=== PATIENT | male | born 1965 | race Caucasian/White ===

== ENCOUNTER 2016-08-23 16:23 | Emergency (ER) | payer OTHER ==
[2016-08-23 17:14] VITALS: BP 123/64; PULSE 100; RESP 20; TEMP 97.1
[2016-08-23] MEDS ORDERED: IPRATROPIUM-ALBUTEROL 3 ML NEB INHALATION STA (18:12)
[2016-08-23] MEDS ORDERED: IBUPROFEN 600 MG TAB PO STA (18:12)
--- NOTE | 2016-08-23 18:15 | ED ---
SOB HPI - General Chief Complaint: Shortness of Breath Stated Complaint: Difficulty Breathing Time Seen by Provider: 08/23/16 17:59 Source: patient, RN notes reviewed Mode of arrival: ambulatory Limitations: no limitations - History of Present Illness Initial Comments: 51 yo male presents to the emergency department with a chief complaint of shortness of breath. Patient states he just felt very rundown and sick lately. Patient states that he has a runny nose and mild cough. Patient states he felt was bronchitis but just does not seem be getting better. Patient states that activity seems to make it worse. Patient states he hasn't had any fever or chills. Patient states that he hasn't had any nausea vomiting. Patient has history of a liver transplant back in October. Patient states he was concerned due to the continued symptoms like.Patient denies any recent fever, chills, chest pain, back pain, abdominal pain, nausea vomiting, numbness or tingling, dysuria or hematuria, constipation or diarrhea, headaches or visual changes, or any other current symptoms. - Related Data Home Medications Medication Instructions Recorded Confirmed Acetaminophen Tab [Tylenol Tab] 325 - 650 mg PO Q6H PRN 08/23/16 08/23/16 Ledipasvir/Sofosbuvir [Harvoni 1 tab PO DAILY 08/23/16 08/23/16 90-400 mg Tablet] Magnesium Oxide [Mag-Ox] 800 mg PO BID 08/23/16 08/23/16 Mycophenolate Mofetil [Cellcept] 500 mg PO Q12H 08/23/16 08/23/16 Ribavirin 400 mg PO BID 08/23/16 08/23/16 Tacrolimus [Prograf] 3 mg PO Q12H 08/23/16 08/23/16 predniSONE 10 mg PO DAILY 08/23/16 08/23/16 Allergies Allergy/AdvReac Type Severity Reaction Status Date / Time No Known Allergies Allergy Verified 08/23/16 17:39 Review of Systems ROS Statement: Those systems with pertinent positive or pertinent negative responses have been documented in the HPI. ROS Other: All systems not noted in ROS Statement are negative. Past Medical History Past Medical History: GI Bleed, Liver Disease Additional Past Medical History / Comment(s): Hepatitis C, cirrhosis, appendicitis, anemia alcoholic cirrhosis/ refractory ASCITIES, past c-diff 1-7- 15, ABD HERNIA, PVD, varices, recurrent Right pleural effusion. THORACENTESIS 04/22 History of Any Multi-Drug Resistant Organisms: C-DIFF Date of last positivie culture/infection: 07/15/2014 MDRO Source:: previous admission Past Surgical History: Appendectomy Additional Past Surgical History / Comment(s): multiple paracentesis, variceal banding, EGDAdditional Medical Hx: Hepatitis C; Cirrhosis, multiple thoracentesis,TIPS procedure liver transplant, lung surgery Past Anesthesia/Blood Transfusion Reactions: No Reported Reaction Past Psychological History: No Psychological Hx Reported Additional Psychological History / Comment(s): PT STATED HE LIVES WITH A FRIEND , IS 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 NO OUTSIDE SERVICES OTHER THAN MEDICAID CARD AND FOOD STAMPS. Smoking Status: Current every day smoker Past Alcohol Use History: None Reported, Occasional Additional Past Alcohol Use History / Comment(s): states he drink 2 (6) packs of beer a wk Past Drug Use History: Cocaine, Heroin, Marijuana Additional Drug Use History / Comment(s): pt stated past heroine, cocaine and marijuana use. NONE RECENT - Past Family History Mother Family Medical History: CVA/TIA, Myocardial Infarction ([place]) Additional Family Medical History / Comment(s): currently alive and 90 years old Father Family Medical History: No Reported History Additional Family Medical History / Comment(s): from car accident General Exam - General Exam Comments Initial Comments: General: The patient is awake and alert, in no distress, and does not appear acutely ill. Eye: Pupils are equal, round and reactive to light, extra-ocular movements are intact; there is normal conjunctiva bilaterally. No signs of icterus. Ears, nose, mouth and throat: There are moist mucous membranes and no oral lesions. Neck: The neck is supple, there is no tenderness. Cardiovascular: There is a regular rate and rhythm. No murmur, rub or gallop is appreciated. Respiratory: Lungs are clear to auscultation, respirations are non-labored, breath sounds are equal. No wheezes, stridor, rales, or rhonchi. Gastrointestinal: Soft, non-distended, non-tender abdomen without masses or organomegaly noted. There is no rebound or guarding present. No CVA tenderness. Bowel sounds are unremarkable. Back: There is no tenderness to palpation in the midline. There is no obvious deformity. No rashes noted. Musculoskeletal: Normal ROM, no tenderness, There is no pedal edema. There is no calf tenderness or swelling. Sensation intact. Pulses equal bilaterally 2+. Neurological: CN II-XII intact, There are no obvious motor or sensory deficits. Coordination appears grossly intact. Speech is normal. Skin: Skin is warm and dry and no rashes or lesions are noted. Psychiatric: Cooperative, appropriate mood & affect, normal judgment. Limitations: no limitations Course Vital Signs 08/23/16 17:12 Temperature 97.1 F L Pulse Rate 100 Respiratory 20 Rate Blood Pressure 123/64 O2 Sat by Pulse 100 Oximetry Medical Decision Making - Medical Decision Making 50-year-old male presents emergency department chief complaint of shortness of breath and upper respiratory type symptoms. Patient eloped from the department patient did not undergo any workup. We're unable to discussed risks with the patient since he was just not in the room when going to be worked up by the nurse. Disposition Clinical Impression: Shortness of breath Disposition: Left Against Medical Advice Condition: Undetermined Referrals: Kentrell Maldonado MD [Primary Care Provider] - 1-2 days
== END 2016-08-23 18:43 | disposition left against medical advice (07) ==
LOC: EC 16:23
DX: R06.02 Shortness of breath (principal); B19.20 Unspecified viral hepatitis C without hepatic coma; Z94.4 Liver transplant status; Z79.899 Other long term (current) drug therapy; F17.200 Nicotine dependence, unspecified, uncomplicated

== ENCOUNTER 2016-08-30 11:28 | Observation (INO) | payer OTHER ==
--- NOTE | 2016-08-30 12:08 | ED ---
Recheck HPI - General Chief Complaint: Recheck/Abnormal Lab/Rx Stated Complaint: OZZIE, HEMOGLOBIN DOWN, ABNORMAL LABS, BAD LIVER Time Seen by Provider: 08/30/16 11:50 Source: patient, RN notes reviewed Mode of arrival: wheelchair Limitations: no limitations - History of Present Illness Initial Comments: This is a 51-year-old male who was the liver transplant in October of this past year who presents with complaints of dyspnea on exertion and anemia. He's been having his blood drawn to follow his hemoglobin level it went from 9.6-8.6 none 7.6 and last week or so. He complains of shortness of breath and exertional dyspnea. 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 He has no other complaints at this time he states his liver has been functioning properly. He denies any tarry stools or bleeding from above or below as far as his GI tract. He voices no other complaints MD Complaint: abnormal lab - Related Data Home Medications Medication Instructions Recorded Confirmed Ledipasvir/Sofosbuvir [Harvoni 1 tab PO DAILY 08/23/16 08/30/16 90-400 mg Tablet] Magnesium Oxide [Mag-Ox] 800 mg PO BID 08/23/16 08/30/16 Mycophenolate Mofetil [Cellcept] 500 mg PO Q12H 08/23/16 08/30/16 Tacrolimus [Prograf] 3 mg PO QAM 08/23/16 08/30/16 predniSONE 10 mg PO DAILY 08/23/16 08/30/16 Omeprazole 20 mg PO DAILY 08/30/16 08/30/16 Tacrolimus [Prograf] 2 mg PO HS 08/30/16 08/30/16 valGANciclovir [Valcyte] 900 mg PO BID 08/30/16 08/30/16 Allergies Allergy/AdvReac Type Severity Reaction Status Date / Time No Known Allergies Allergy Verified 08/23/16 17:39 Review of Systems ROS Statement: Those systems with pertinent positive or pertinent negative responses have been documented in the HPI. ROS Other: All systems not noted in ROS Statement are negative. Past Medical History Past Medical History: GI Bleed, Liver Disease Additional Past Medical History / Comment(s): Hepatitis C, cirrhosis, appendicitis, anemia alcoholic cirrhosis/ refractory ASCITIES, past c-diff 1-- 15, ABD HERNIA, PVD, varices, recurrent Right pleural effusion. THORACENTESIS 04/22 History of Any Multi-Drug Resistant Organisms: C-DIFF Date of last positivie culture/infection: 07/15/2014 MDRO Source:: previous admission Past Surgical History: Appendectomy Additional Past Surgical History / Comment(s): multiple paracentesis, variceal banding, EGDAdditional Medical Hx: Hepatitis C; Cirrhosis, multiple thoracentesis,TIPS procedure liver transplant, lung surgery Past Anesthesia/Blood Transfusion Reactions: No Reported Reaction Past Psychological History: No Psychological Hx Reported Additional Psychological History / Comment(s): PT STATED HE LIVES WITH A FRIEND , IS 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 NO OUTSIDE SERVICES OTHER THAN MEDICAID CARD AND FOOD STAMPS. Smoking Status: Current every day smoker Past Alcohol Use History: None Reported, Occasional Additional Past Alcohol Use History / Comment(s): states he drink 2 (6) packs of beer a wk Past Drug Use History: Cocaine, Heroin, Marijuana Additional Drug Use History / Comment(s): pt stated past heroine, cocaine and marijuana use. NONE RECENT - Past Family History Mother Family Medical History: CVA/TIA, Myocardial Infarction ([place]) Additional Family Medical History / Comment(s): currently alive and 90 years old Father Family Medical History: No Reported History Additional Family Medical History / Comment(s): from car accident General Exam - General Exam Comments Initial Comments: This is a well-developed well-nourished awake alert oriented 3 male. He does appear pale. Limitations: no limitations General appearance: alert, in no apparent distress Head exam: Present: atraumatic, normocephalic, normal inspection Eye exam: Present: PERRL, EOMI, other (Pale conjunctiva) ENT exam: Present: normal exam, mucous membranes moist Neck exam: Present: normal inspection. Absent: tenderness, meningismus, lymphadenopathy Respiratory exam: Present: decreased breath sounds Cardiovascular Exam: Present: normal rhythm, tachycardia GI/Abdominal exam: Present: soft (Well-healed rooftop incision), normal bowel sounds. Absent: distended, tenderness, guarding, rebound, rigid Rectal exam: Present: deferred Extremities exam: Present: normal inspection, full ROM, normal capillary refill. Absent: tenderness, pedal edema, joint swelling, calf tenderness Back exam: Present: normal inspection Neurological exam: Present: alert, oriented X3, CN II-XII intact Psychiatric exam: Present: normal affect, normal mood Skin exam: Present: warm, dry, intact, pallor Course Vital Signs 08/30/16 08/30/16 08/30/16 11:41 12:59 13:29 Temperature 98.5 F Pulse Rate 102 H 82 94 Respiratory 18 Rate Blood Pressure 125/62 138/72 138/71 O2 Sat by Pulse 100 100 100 Oximetry 08/30/16 08/30/16 08/30/16 13:59 14:29 14:58 Temperature Pulse Rate 92 80 78 Respiratory Rate Blood Pressure 139/77 139/59 135/82 O2 Sat by Pulse 99 99 100 Oximetry 08/30/16 08/30/16 15:10 15:20 Temperature 98.2 F 98.4 F Pulse Rate 85 103 H Respiratory 18 18 Rate Blood Pressure 123/58 116/59 O2 Sat by Pulse 100 100 Oximetry Medical Decision Making - Medical Decision Making Patient will be admitted for the transfusion. He has no physician in the area at this time believe admitted to the on-call medicine physician. - Lab Data Result diagrams: 08/30/16 12:25 08/30/16 12:25 Lab Results 08/30/16 08/30/16 08/30/16 Range/Units 12:25 12:25 12:25 WBC (3.8-10.6) k/uL RBC (4.30-5.90) m/uL Hgb (13.0-17.5) gm/dL Hct (39.0-53.0) % MCV (80.0-100.0) fL MCH (25.0-35.0) pg MCHC (31.0-37.0) g/dL RDW (11.5-15.5) % Plt Count (150-450) k/uL Neutrophils % % Lymphocytes % % Monocytes % % Eosinophils % % Basophils % % Neutrophils # (1.3-7.7) k/uL Lymphocytes # (1.0-4.8) k/uL Monocytes # (0-1.0) k/uL Eosinophils # (0-0.7) k/uL Basophils # (0-0.2) k/uL Toxic Granulation Polychromasia Poikilocytosis Poikilocytosis (manual Anisocytosis Macrocytosis Ovalocytes Sodium (137-145) mmol/L Potassium (3.5-5.1) mmol/L Chloride (98-107) mmol/L Carbon Dioxide (22-30) mmol/L Anion Gap mmol/L BUN (9-20) mg/dL Creatinine (0.66-1.25) mg/dL Est GFR (MDRD) Af Amer (>60 ml/min/1.73 sqM) Est GFR (MDRD) Non-Af (>60 ml/min/1.73 sqM) Glucose (74-99) mg/dL Calcium (8.4-10.2) mg/dL Magnesium (1.6-2.3) mg/dL Total Bilirubin (0.2-1.3) mg/dL AST (17-59) U/L ALT (21-72) U/L Alkaline Phosphatase (38-126) U/L Total Creatine Kinase 21 L (55-170) U/L CK-MB (CK-2) 0.4 (0.0-2.4) ng/mL CK-MB (CK-2) Rel Index 1.9 Troponin I <0.012 (0.000-0.034) ng/mL NT-Pro-B Natriuret Pep 443 pg/mL Total Protein (6.3-8.2) g/dL Albumin (3.5-5.0) g/dL Blood Type A Positive Blood Type Recheck No Antibody Screen NEGATIVE Crossmatch See Detail Spec Expiration Date 09/02/2016232408/30/16 08/30/16 Range/Units 12:25 12:25 WBC 1.7 L* (3.8-10.6) k/uL RBC 2.38 L (4.30-5.90) m/uL Hgb 7.4 L (13.0-17.5) gm/dL Hct 22.4 L (39.0-53.0) % MCV 94.2 (80.0-100.0) fL MCH 31.3 (25.0-35.0) pg MCHC 33.2 (31.0-37.0) g/dL RDW 23.1 H (11.5-15.5) % Plt Count 164 (150-450) k/uL Neutrophils % 73 % Lymphocytes % 12 % Monocytes % 9 % Eosinophils % 2 % Basophils % 1 % Neutrophils # 1.3 (1.3-7.7) k/uL Lymphocytes # 0.2 L (1.0-4.8) k/uL Monocytes # 0.2 (0-1.0) k/uL Eosinophils # 0.0 (0-0.7) k/uL Basophils # 0.0 (0-0.2) k/uL Toxic Granulation Present Polychromasia Present Poikilocytosis Slight Poikilocytosis (manual Present Anisocytosis Moderate Macrocytosis Slight Ovalocytes Present Sodium 141 (137-145) mmol/L Potassium 4.2 (3.5-5.1) mmol/L Chloride 106 (98-107) mmol/L Carbon Dioxide 24 (22-30) mmol/L Anion Gap 11 mmol/L BUN 16 (9-20) mg/dL Creatinine 0.97 (0.66-1.25) mg/dL Est GFR (MDRD) Af Amer >60 (>60 ml/min/1.73 sqM) Est GFR (MDRD) Non-Af >60 (>60 ml/min/1.73 sqM) Glucose 105 H (74-99) mg/dL Calcium 9.1 (8.4-10.2) mg/dL Magnesium 1.9 (1.6-2.3) mg/dL Total Bilirubin 0.8 (0.2-1.3) mg/dL AST 20 (17-59) U/L ALT 26 (21-72) U/L Alkaline Phosphatase 44 (38-126) U/L Total Creatine Kinase (55-170) U/L CK-MB (CK-2) (0.0-2.4) ng/mL CK-MB (CK-2) Rel Index Troponin I (0.000-0.034) ng/mL NT-Pro-B Natriuret Pep pg/mL Total Protein 7.0 (6.3-8.2) g/dL Albumin 4.0 (3.5-5.0) g/dL Blood Type Blood Type Recheck Antibody Screen Crossmatch Spec Expiration Date - EKG Data -: EKG Interpreted by Me EKG shows normal: sinus rhythm, axis, intervals, QRS complexes, ST-T waves (EKG shows a normal sinus rhythm of 85 appear of 01 20 QRS amish a 96 daily since QTC of 388/461 st-t wave changes.) Rate: normal Disposition Clinical Impression: Anemia, History of liver transplant, Symptomatic anemia Disposition: ADMITTED IP TO THIS HOSP Condition: Stable
--- NOTE | 2016-08-30 12:58 | XR ---
EXAMINATION TYPE: XR chest 2V DATE OF EXAM: 08/30/2016 12:53 PM HISTORY: cough. REFERENCE: Previous study dated 07/08/2016. FINDINGS: The lungs are clear. There is a chronic right pleural reaction. Heart size is normal. IMPRESSION: CHRONIC RIGHT PLEURAL REACTION MAY REPRESENT SOME PLEURAL THICKENING OR SMALL AMOUNT OF PLEURAL FLUID .
[2016-08-30 13:05] LABS: Anisocytosis Moderate; Basophils % (A) 1 %; CH 31.8; Eosinophils % (A) 2 %; HCT 22.4 % (39.0-53.0); HDW 3.71; HGB 7.4 gm/dL (13.0-17.5); Luc # (Auto) 0.06; Luc % (Auto) 3; Lymphocytes # (A) 0.2 k/uL (1.0-4.8); Lymphocytes % (A) 12 %; MCH 31.3 pg (25.0-35.0); MCHC 33.2 g/dL (31.0-37.0); MCV 94.2 fL (80.0-100.0); Macrocytosis Slight; Mean Platelet Volume 9.2; Monocytes # (A) 0.2 k/uL (0-1.0); Monocytes % (A) 9 %; Neutrophils # (A) 1.3 k/uL (1.3-7.7); Neutrophils % (A) 73 %; Poikilocytosis Slight; RBC 2.38 m/uL (4.30-5.90); RDW 23.1 % (11.5-15.5); WBC (Perox) 1.79
[2016-08-30 13:08] LABS: WBC 1.7 k/uL (3.8-10.6)
[2016-08-30 13:27] LABS: ALT 26 U/L (21-72); AST 20 U/L (17-59); Alkaline Phosphatase 44 U/L (38-126); Anion Gap 11 mmol/L; Blood Urea Nitrogen 16 mg/dL (9-20); Calcium 9.1 mg/dL (8.4-10.2); Carbon Dioxide 24 mmol/L (22-30); Chloride 106 mmol/L (98-107); Glucose 105 mg/dL (74-99); Magnesium 1.9 mg/dL (1.6-2.3); Non-African American GFR(MDRD) >60 (>60 ml/min/1.73 sqM); Potassium 4.2 mmol/L (3.5-5.1); Sodium 141 mmol/L (137-145); Total Bilirubin 0.8 mg/dL (0.2-1.3)
[2016-08-30 13:41] LABS: Creatine Kinase 21 U/L (55-170)
[2016-08-30 13:55] LABS: Creatine Kinase MB 0.4 ng/mL (0.0-2.4); Troponin I <0.012 ng/mL (0.000-0.034)
[2016-08-30 13:56] LABS: Ovalocytes Present
[2016-08-30 13:57] LABS: Polychromasia Present; Toxic Granulation Present
[2016-08-30] MEDS ORDERED: NALOXONE 0.4 MG/ML 1 ML VIAL IV PRN (15:33)
[2016-08-30] MEDS ORDERED: SODIUM CHLORIDE 0.9% 1,000 ML IV SCH (15:45)
[2016-08-30 20:39] VITALS: BMI 21.6
[2016-08-30] MEDS: MYCOPHENOLATE MOFETIL 500 MG TAB PO SCH (20:54)
[2016-08-30] MEDS: MAGNESIUM OXIDE 400 MG TAB PO SCH (20:54)
[2016-08-30] MEDS ORDERED: TACROLIMUS 1 MG CAP PO SCH (21:00)
[2016-08-30] MEDS ORDERED: NICOTINE POLACRILEX 2 MG GUM BUCCAL PRN (21:54)
[2016-08-31 07:39] VITALS: BP 111/63; PULSE 67; RESP 18; TEMP 98.2
[2016-08-31] MEDS: MAGNESIUM OXIDE 400 MG TAB PO SCH (08:24)
[2016-08-31] MEDS: MYCOPHENOLATE MOFETIL 500 MG TAB PO SCH (08:25)
[2016-08-31] MEDS ORDERED: TACROLIMUS 1 MG CAP PO SCH (09:00)
[2016-08-31] MEDS ORDERED: SOFOSBUVIR PO SCH (09:00)
[2016-08-31] MEDS ORDERED: LEDIPASVIR PO SCH (09:00)
[2016-08-31] MEDS ORDERED: predniSONE 10 MG TAB PO SCH (09:00)
[2016-08-31] MEDS ORDERED: PANTOPRAZOLE 40 MG TABLET PO SCH (09:00)
[2016-08-31 11:50] LABS: Anisocytosis Moderate; Basophils % (A) 0 %; CH 30.6; Eosinophils % (A) 1 %; HCT 29.2 % (39.0-53.0); HDW 3.89; Luc # (Auto) 0.06; Luc % (Auto) 2; Lymphocytes # (A) 0.3 k/uL (1.0-4.8); Lymphocytes % (A) 8 %; MCH 30.2 pg (25.0-35.0); MCHC 33.1 g/dL (31.0-37.0); Macrocytosis Slight; Mean Platelet Volume 9.2; Monocytes # (A) 0.1 k/uL (0-1.0); Monocytes % (A) 3 %; Neutrophils # (A) 2.8 k/uL (1.3-7.7); Neutrophils % (A) 86 %; Poikilocytosis Slight; RDW 21.9 % (11.5-15.5); WBC 3.3 k/uL (3.8-10.6); WBC (Perox) 3.55
[2016-08-31 11:53] LABS: HGB 9.7 gm/dL (13.0-17.5)
--- NOTE | 2016-08-31 12:58 | HP ---
DATE OF ADMISSION: 08/30/2016 PRESENTING COMPLAINT: Weak, tired. HISTORY OF PRESENTING COMPLAINT: This is a 51-year-old patient who used to follow with Dr. Maldonado before, but does not follow with any family doctor anymore. Patient does follow with Dr. Barillas ) a liver transplant specialist out of [facility] from where he communicates to a nurse coordinator. The patient did have hepatitis C, cirrhosis and did have a liver transplant on October 31, 2015. Patient also getting treatment Harvoni for his hepatitis C. He has got a few pills left. Also, got accompanying medication ribavirin, stopped taking it because it was affecting probably his counts. Patient presented feeling weak, tired, rundown. He was found to have a hemoglobin of 7.4; hence, patient being transfused blood for symptomatic anemia. As I interviewed the patient, he is very keen to leave and not stay in the hospital anymore even to the point of AMA. He says he is feeling fine after the blood transfusion. REVIEW OF SYSTEMS: CONSTITUTIONAL: Weak, tired. HEENT: None. RESPIRATORY: Some wheezing and coughing. CARDIOVASCULAR: None. GASTROINTESTINAL: None. GENITOURINARY: None. MUSCULOSKELETAL: None. DERMATOLOGICAL: Scars. HEMATOLOGICAL: None. LYMPHATIC: None. PSYCHIATRY: None. NEUROLOGICAL: None. Past history of GI bleed, hepatitis C, cirrhosis, appendicitis, ascites, abdominal hernia, varices, recurrent right pleural effusion. PAST SURGICAL HISTORY: Appendectomy, multiple paracenteses, variceal banding, hep C, cirrhosis, multiple thoracenteses, TIPS procedure, liver transplant. SOCIAL HISTORY: The patient lives with a friend. 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 Smokes at least 1/2 pack a day. Denies alcohol for some time. Patient did in the past heroin, cocaine and marijuana, none recently. Family history of stroke and heart attack. HOME MEDICATIONS: 1. Harvoni 90/400 one tablet p.o. q.h.s. 2. Magnesium oxide 800 mg p.o. b.i.d. 3. Prograf 2 mg q.h.s. 4. Prograf 3 mg p.o. in the morning. 5. CellCept 500 mg p.o. q.12. 6. Prednisone 10 mg p.o. daily. ALLERGIES: None. ON EXAMINATION: VITAL SIGNS ON PRESENTATION: Temperature 98.5, pulse 102, respiration 18, blood pressure 125/62, pulse ox 100% on room air. GENERAL APPEARANCE: Average built, sitting up, not in distress. EYES: Pupils equal. Conjunctivae pale. HENT: Oral cavity normal. NECK: JVD not raised. Mass not palpable. RESPIRATORY: Effort normal. LUNGS: Decreased breath sounds. Mild wheezing. CARDIOVASCULAR: First and second sounds normal. No edema. ABDOMEN: Scars are present. No tenderness. Liver and spleen not palpable. LYMPHATIC: No lymph node palpable in neck or axillae. PSYCHIATRY: Alert and oriented x3. Mood and affect slightly anxious appearing. NEUROLOGICAL: Pupils equal. Cranial nerves grossly intact. Power and sensation grossly intact. INVESTIGATIONS: White count 1.7, hemoglobin 7.4, platelets 164. Potassium 4.2. ASSESSMENT: 1. Acute symptomatic anemia, could be from a side effect of drugs. 2. Leukopenia, could be side effect of drugs. 3. Status post liver transplant on October for hepatitis C and cirrhosis. 4. Chronic nicotine dependence. Patient is a smoker. 5. Chronic obstructive pulmonary disease in a smoker. PLAN: Patient was transfused blood. Patient counseled against smoking. Will be given a nicotine patch and also will be prescribed Spiriva. Patient told to establish with a family doctor and patient has a scheduled blood draw for Vargas Zhang done tomorrow.
--- NOTE | 2016-09-01 16:09 | DS ---
DATE OF ADMISSION: 08/30/2016 DATE OF DISCHARGE: 08/31/2016 FINAL DIAGNOSES: 1. Acute symptomatic anemia; could be hemolysis from drugs. 2. Leukopenia; side effect of drugs. 3. History of liver transplant on October 31, 2015, for hepatitis C and cirrhosis. 4. Chronic nicotine dependence. Patient is a smoker. 5. Chronic obstructive pulmonary disease in a smoker. HOSPITAL COURSE: This patient with liver transplant at [facility], being followed by Dr. Chairez, presented with symptomatic anemia at 7.4. He was given 2 units of blood. Hemoglobin has come up to 9.7. Patient was counseled against smoking. He does not follow with a local doctor. Repeat hemoglobin is good, and patient is overall feeling much better. DISCHARGE MEDICATIONS: 1. Harvoni 90/400 one tablet p.o. at bedtime. 2. Magnesium oxide 800 mg p.o. b.i.d. 3. CellCept 500 mg p.o. q.12. 4. Prograf 3 mg p.o. daily. 5. Prednisone 10 mg daily. 6. Prograf 2 mg p.o. at bedtime. 7. Nicotine patch daily. 8. Spiriva 1 capsule daily. Patient to follow up with Dr. Chairez at [facility] today. Patient to establish and follow with a family doctor in the next 2 days. On exam, lungs have decreased breath sounds. Abdomen is soft, non-tender. ABDOMEN: Soft, nontender
== END 2016-08-31 11:50 | disposition home or self-care (01) ==
LOC: EC 11:28 → 3OBS 15:34
PROVIDERS: ADMIT Hospitalist; ATTEND Hospitalist
DX: D64.9 Anemia, unspecified (principal); D70.8 Other neutropenia; T50.905A Adverse effect of unspecified drugs, medicaments and biological substances, initial encounter; B19.20 Unspecified viral hepatitis C without hepatic coma; Z94.4 Liver transplant status; J44.9 Chronic obstructive pulmonary disease, unspecified; I73.9 Peripheral vascular disease, unspecified; Z79.52 Long term (current) use of systemic steroids; Z79.899 Other long term (current) drug therapy
CPT/HCPCS: 36415; 93005; 86900; 86901; 83880; 80053; 82550; 82553; 83735; 84484; 85025 ×2; 86850; 86920; 71020; 99285; G0378 ×2; P9016; J7507 ×2; J7517 ×2; J7512; 36430

== ENCOUNTER → 2016-10-27 | Outpatient (CLI) | payer OTHER ==
[2016-10-27 10:56] LABS: Hepatitis B Surface Ag Index 0.08
[2016-10-27 11:15] LABS: Hepatitis B Surface Antibody Negative (Negative)
[2016-10-30 15:40] LABS: Hepatitis B Virus DNA Not detected (Not detected); Hepatitis B Virus DNA, Quant <10 IU/mL (<10); Log HBV IU/mL <1.00 (<1.00)
== END | disposition home or self-care (01) ==
LOC: LABWHC1 08:25
PROVIDERS: ATTEND Internal Medicine Gastroenterology
DX: Z48.23 Encounter for aftercare following liver transplant (principal)
CPT/HCPCS: 36415; 86706; 87340; 87517

== ENCOUNTER 2018-05-20 13:33 | Observation (INO) | payer OTHER ==
[2018-05-20] MEDS ORDERED: SODIUM CHLORIDE 0.9% 1,000 ML IV STA (14:49)
[2018-05-20] MEDS ORDERED: IPRATROPIUM-ALBUTEROL 3 ML NEB INHALATION STA ×2 (14:49→16:53)
--- NOTE | 2018-05-20 14:53 | ED ---
SOB HPI - General Chief Complaint: Shortness of Breath Stated Complaint: Blurred vision, SOB Time Seen by Provider: 05/20/18 14:30 Source: patient, RN notes reviewed Mode of arrival: ambulatory Limitations: no limitations - History of Present Illness Initial Comments: This is a 53-year-old male with a history of a liver transplant in October 2015 hernández is a long-time smoker down from 2 packs a day to 7 cigarettes a day who presents with complaints of 2 days of shortness of breath cough he's had yellow phlegm some fevers and chills with it. No overt chest pain no nausea vomiting diarrhea. He states he feels similar when he sneezed a blood transfusion the past. He has no other modifying factors at this time he states she's never been diagnosed with COPD or emphysema. MD Complaint: shortness of breath, cough - Related Data Home Medications Medication Instructions Recorded Confirmed Magnesium Oxide [Mag-Ox] 800 mg PO BID 08/23/16 05/20/18 Mycophenolate Mofetil [Cellcept] 500 mg PO Q12H 08/23/16 05/20/18 Tacrolimus [Prograf] 2 mg PO BID 08/30/16 05/20/18 oxyCODONE-APAP 10-325MG [Percocet 1 tab PO Q8HR 05/20/18 05/20/18 10-325 mg] Allergies Allergy/AdvReac Type Severity Reaction Status Date / Time No Known Allergies Allergy Verified 05/20/18 14:52 Review of Systems ROS Statement: Those systems with pertinent positive or pertinent negative responses have been documented in the HPI. ROS Other: All systems not noted in ROS Statement are negative. Past Medical History Past Medical History: GI Bleed, Liver Disease Additional Past Medical History / Comment(s): Hepatitis C, cirrhosis, appendicitis, anemia alcoholic cirrhosis/ refractory ASCITIES, past c-diff 1-- 15, ABD HERNIA, PVD, varices, recurrent Right pleural effusion. THORACENTESIS 04/22 History of Any Multi-Drug Resistant Organisms: C-DIFF Date of last positivie culture/infection: 07/15/2014 MDRO Source:: previous admission Past Surgical History: Appendectomy Additional Past Surgical History / Comment(s): multiple paracentesis, variceal banding, EGDAdditional Medical Hx: Hepatitis C; Cirrhosis, multiple thoracentesis,TIPS procedure liver transplant, lung surgery Past Anesthesia/Blood Transfusion Reactions: No Reported Reaction Past Psychological History: No Psychological Hx Reported Smoking Status: Current every day smoker Past Alcohol Use History: None Reported, Occasional Past Drug Use History: Cocaine, Heroin, Marijuana - Past Family History Mother Family Medical History: CVA/TIA, Myocardial Infarction ([place]) Additional Family Medical History / Comment(s): currently alive and 90 years old Father Family Medical History: No Reported History Additional Family Medical History / Comment(s): from car accident General Exam - General Exam Comments Initial Comments: This is a well-developed well-nourished awake alert oriented 3 male Limitations: no limitations General appearance: alert, in no apparent distress Head exam: Present: atraumatic, normocephalic, normal inspection Eye exam: Present: normal appearance, PERRL, EOMI. Absent: scleral icterus, conjunctival injection, periorbital swelling ENT exam: Present: normal exam, mucous membranes moist Neck exam: Present: normal inspection. Absent: tenderness, meningismus, lymphadenopathy Respiratory exam: Present: wheezes, rhonchi, decreased breath sounds. Absent: respiratory distress, rales, stridor Cardiovascular Exam: Present: regular rate, normal rhythm, normal heart sounds. Absent: systolic murmur, diastolic murmur, rubs, gallop, clicks GI/Abdominal exam: Present: soft, normal bowel sounds. Absent: distended, tenderness, guarding, rebound, rigid Extremities exam: Present: normal inspection, full ROM, normal capillary refill. Absent: tenderness, pedal edema, joint swelling, calf tenderness Back exam: Present: normal inspection Neurological exam: Present: alert, oriented X3, CN II-XII intact Psychiatric exam: Present: normal affect, normal mood Skin exam: Present: warm, dry, intact, normal color. Absent: rash Course Vital Signs 05/20/18 05/20/18 05/20/18 14:03 14:34 15:02 Temperature 97.8 F Pulse Rate 72 66 Respiratory 20 28 H Rate Blood Pressure 110/63 O2 Sat by Pulse 99 Oximetry 05/20/18 05/20/18 05/20/18 15:12 15:30 16:00 Temperature Pulse Rate 67 71 70 Respiratory 16 16 Rate Blood Pressure 115/79 112/80 O2 Sat by Pulse Oximetry 05/20/18 16:17 Temperature Pulse Rate Respiratory Rate Blood Pressure O2 Sat by Pulse 97 Oximetry - Reevaluation(s) Reevaluation #1: 05/20/18 16:54 Patient is to get slight improvement but later circumflex him to breathing as he did upon arrival. More information reveals that he is been actually suffering with this for about 10 days. Labs show no evidence of need for blood transfusion he does demonstrate evidence of COPD exacerbation and bronchitis. Medical Decision Making - Medical Decision Making I did discuss findings with the patient reexamination revealed marked wheezing and rhonchi in all lung arreaga with diminished breath sounds some accessory muscle usage. Patient will be admitted for inpatient treatment of what appears be COPD exacerbation and bronchitis. We did discuss earlier smoking cessation and the risks and benefits thereof. Patient is in the process of trying to stop smoking. He is down to 7 cigarettes today from initially 2 packs. Conversation lasting 3.1 minutes. - Lab Data Result diagrams: 05/20/18 15:14 05/20/18 15:14 Lab Results 05/20/18 05/20/18 05/20/18 Range/Units 15:14 15:14 15:14 WBC 4.4 (3.8-10.6) k/uL RBC 4.89 (4.30-5.90) m/uL Hgb 14.7 (13.0-17.5) gm/dL Hct 43.1 (39.0-53.0) % MCV 88.2 (80.0-100.0) fL MCH 30.1 (25.0-35.0) pg MCHC 34.1 (31.0-37.0) g/dL RDW 13.1 (11.5-15.5) % Plt Count 131 L (150-450) k/uL Neutrophils % 58 % Lymphocytes % 27 % Monocytes % 9 % Eosinophils % 3 % Basophils % 0 % Neutrophils # 2.6 (1.3-7.7) k/uL Lymphocytes # 1.2 (1.0-4.8) k/uL Monocytes # 0.4 (0-1.0) k/uL Eosinophils # 0.1 (0-0.7) k/uL Basophils # 0.0 (0-0.2) k/uL PT (9.0-12.0) sec INR (<1.2) APTT (22.0-30.0) sec Sodium 141 (137-145) mmol/L Potassium 4.6 (3.5-5.1) mmol/L Chloride 109 H (98-107) mmol/L Carbon Dioxide 26 (22-30) mmol/L Anion Gap 6 mmol/L BUN 39 H (9-20) mg/dL Creatinine 1.47 H (0.66-1.25) mg/dL Est GFR (CKD-EPI)AfAm 61 (>60 ml/min/1.73 sqM) Est GFR (CKD-EPI)NonAf 53 (>60 ml/min/1.73 sqM) Glucose 76 (74-99) mg/dL Calcium 9.8 (8.4-10.2) mg/dL Magnesium 1.9 (1.6-2.3) mg/dL Total Bilirubin 0.8 (0.2-1.3) mg/dL AST 58 (17-59) U/L ALT 74 H (21-72) U/L Alkaline Phosphatase 192 H (38-126) U/L Total Creatine Kinase 24 L (55-170) U/L CK-MB (CK-2) 0.3 (0.0-2.4) ng/mL CK-MB (CK-2) Rel Index 1.3 Troponin I <0.012 (0.000-0.034) ng/mL NT-Pro-B Natriuret Pep pg/mL Total Protein 7.5 (6.3-8.2) g/dL Albumin 3.9 (3.5-5.0) g/dL 05/20/18 05/20/18 Range/Units 15:14 15:14 WBC (3.8-10.6) k/uL RBC (4.30-5.90) m/uL Hgb (13.0-17.5) gm/dL Hct (39.0-53.0) % MCV (80.0-100.0) fL MCH (25.0-35.0) pg MCHC (31.0-37.0) g/dL RDW (11.5-15.5) % Plt Count (150-450) k/uL Neutrophils % % Lymphocytes % % Monocytes % % Eosinophils % % Basophils % % Neutrophils # (1.3-7.7) k/uL Lymphocytes # (1.0-4.8) k/uL Monocytes # (0-1.0) k/uL Eosinophils # (0-0.7) k/uL Basophils # (0-0.2) k/uL PT 9.9 (9.0-12.0) sec INR 1.0 (<1.2) APTT 25.2 (22.0-30.0) sec Sodium (137-145) mmol/L Potassium (3.5-5.1) mmol/L Chloride (98-107) mmol/L Carbon Dioxide (22-30) mmol/L Anion Gap mmol/L BUN (9-20) mg/dL Creatinine (0.66-1.25) mg/dL Est GFR (CKD-EPI)AfAm (>60 ml/min/1.73 sqM) Est GFR (CKD-EPI)NonAf (>60 ml/min/1.73 sqM) Glucose (74-99) mg/dL Calcium (8.4-10.2) mg/dL Magnesium (1.6-2.3) mg/dL Total Bilirubin (0.2-1.3) mg/dL AST (17-59) U/L ALT (21-72) U/L Alkaline Phosphatase (38-126) U/L Total Creatine Kinase (55-170) U/L CK-MB (CK-2) (0.0-2.4) ng/mL CK-MB (CK-2) Rel Index Troponin I (0.000-0.034) ng/mL NT-Pro-B Natriuret Pep 205 pg/mL Total Protein (6.3-8.2) g/dL Albumin (3.5-5.0) g/dL - EKG Data -: EKG Interpreted by Me EKG shows normal: sinus rhythm (EKG shows sinus rhythm of 70 AL interval 122 QRS duration 94 QT since QTC 396/427 possible left atrial enlargement) - Radiology Data Radiology results: report reviewed (I did review the imaging and report no acute findings.), image reviewed Critical Care Time Critical Care Time: Yes Critical Care Time: 31 minutes of critical care time which includes initial presentation with history physical labs x-rays reevaluation patient on different medications. Discussed with patient regarding findings discussion with the admitting physician admission orders and documentation of the above Disposition Clinical Impression: Bronchitis Disposition: ADMITTED IP TO THIS [facility] Condition: Stable Referrals: None,Stated [Primary Care Provider] - 1-2 days
--- NOTE | 2018-05-20 15:32 | XR ---
EXAMINATION TYPE: XR chest 2V DATE OF EXAM: 05/20/2018 COMPARISON: 08/30/2016 TECHNIQUE: PA and lateral views submitted. HISTORY: Shortness of breath FINDINGS: Hyperinflation suggests COPD. Pleural thickening or tiny right pleural effusion. No overt failure or consolidation. Thickening of the minor fissure noted. IMPRESSION: 1. COPD with stable appearing chronic tiny pleural effusion or pleural thickening.
[2018-05-20 15:44] LABS: Basophils % (A) 0 %; Eosinophils # (A) 0.1 k/uL (0-0.7); Eosinophils % (A) 3 %; HCT 43.1 % (39.0-53.0); HGB 14.7 gm/dL (13.0-17.5); Lymphocytes # (A) 1.2 k/uL (1.0-4.8); Lymphocytes % (A) 27 %; MCH 30.1 pg (25.0-35.0); MCHC 34.1 g/dL (31.0-37.0); MCV 88.2 fL (80.0-100.0); Mean Platelet Volume 6.4; Monocytes # (A) 0.4 k/uL (0-1.0); Monocytes % (A) 9 %; Neutrophils # (A) 2.6 k/uL (1.3-7.7); Neutrophils % (A) 58 %; Platelet Count 131 k/uL (150-450); RBC 4.89 m/uL (4.30-5.90); RDW 13.1 % (11.5-15.5); WBC 4.4 k/uL (3.8-10.6)
[2018-05-20 15:50] LABS: Albumin 3.9 g/dL (3.5-5.0); Calcium 9.8 mg/dL (8.4-10.2); Magnesium 1.9 mg/dL (1.6-2.3); Potassium 4.6 mmol/L (3.5-5.1); Total Bilirubin 0.8 mg/dL (0.2-1.3); Total Protein 7.5 g/dL (6.3-8.2)
[2018-05-20 15:51] LABS: Creatine Kinase 24 U/L (55-170)
[2018-05-20 16:01] LABS: Partial Thromboplastin Time 25.2 sec (22.0-30.0); Prothrombin Time 9.9 sec (9.0-12.0)
[2018-05-20 16:04] LABS: Creatine Kinase MB 0.3 ng/mL (0.0-2.4); Troponin I <0.012 ng/mL (0.000-0.034)
[2018-05-20] MEDS ORDERED: MAGNESIUM SULFATE-D5W PMX 1 GM in DEXTROSE/WATER 1 100ML.BAG IVPB ONE (16:53)
[2018-05-20] MEDS ORDERED: methylPREDNISolone SOD SUCCI 125 MG/2 ML VIAL IV STA (16:53)
[2018-05-20] MEDS: MYCOPHENOLATE MOFETIL 500 MG TAB PO SCH (18:08)
[2018-05-20] MEDS: IPRATROPIUM-ALBUTEROL 3 ML NEB INHALATION SCH ×2 (19:29→23:20)
[2018-05-20] MEDS ORDERED: MONTELUKAST 10 MG TAB PO SCH (21:30)
[2018-05-20] MEDS ORDERED: oxyCODONE-APAP 10-325MG 1 EACH TAB PO PRN (21:50)
[2018-05-20] MEDS: AMOXIC-POT CLAV 875-125MG 1 EACH TAB PO SCH (21:52)
[2018-05-20] MEDS: MAGNESIUM OXIDE 400 MG TAB PO SCH (21:52)
[2018-05-20] MEDS: TACROLIMUS 1 MG CAP PO SCH (21:52)
[2018-05-20] MEDS: oxyCODONE-APAP 10-325MG 1 EACH TAB PO PRN (22:11)
[2018-05-20] MEDS: methylPREDNISolone SOD SUCCI 125 MG/2 ML VIAL IV SCH (23:17)
[2018-05-20] MEDS: SODIUM CHLORIDE 0.9% 1,000 ML IV SCH (23:18)
[2018-05-21] MEDS ORDERED: oxyCODONE-APAP 10-325MG 1 EACH TAB PO SCH
[2018-05-21] MEDS: IPRATROPIUM-ALBUTEROL 3 ML NEB INHALATION SCH ×2 (03:17→07:32)
[2018-05-21] MEDS: methylPREDNISolone SOD SUCCI 125 MG/2 ML VIAL IV SCH (06:02)
[2018-05-21] MEDS: MYCOPHENOLATE MOFETIL 500 MG TAB PO SCH (06:02)
[2018-05-21 06:12] VITALS: BP 116/64; TEMP 97.7
[2018-05-21] MEDS: oxyCODONE-APAP 10-325MG 1 EACH TAB PO PRN (06:18)
[2018-05-21] MEDS: SODIUM CHLORIDE 0.9% 1,000 ML IV SCH (06:54)
--- NOTE | 2018-05-21 06:54 | HP ---
HISTORY AND PHYSICAL CHIEF COMPLAINT: A 53-year-old white male with a liver transplant October 2015, long-time smoker, 2 packs a day for 7 cigarettes a day, two day history shows cough, yellow phlegm. He has a history of hepatitis C, which is in remission, status post liver transplant. He has been short of breath and had a cough like this before. He is on CellCept, Mag oxide and Percocet at home. ALLERGIES: No known drug allergies. PAST HISTORY: GI bleed, liver disease, hepatitis C, alcoholic cirrhosis, appendicitis, varices, pleural effusion, thoracentesis, C diff. PAST SURGICAL HISTORY: Appendectomy, hepatitis C, cirrhosis, paracentesis, thoracentesis, , liver transplant, lung transplant. PAST FAMILY MEDICAL HISTORY: Mother with CVA, TIA, myocardial infarction. Father car accident . PHYSICAL EXAM: Well-developed, well-nourished white male, thin, nonobese. HEAD: Normocephalic, atraumatic. Cardiovascular S1, S2. GI soft. Lungs show wheezes x4. Scattered rhonchi. Hematology negative Homans. Psych: Fair mood and affect. NEUROLOGIC: Alert and orient x3. Ophthalmologic: Pupils equal, round, reactive to light and accommodation. LABORATORY DATA: BUN 39, creatinine 1.47. White count 4.4, hemoglobin 14.7. ASSESSMENT: 1. Tracheobronchitis. 2. Chronic obstructive pulmonary disease exacerbation. 3. History of liver transplant due to hepatitis C. IV steroids, updraft treatments. Await for Pulmonary consultation. MMODL / IJN: [id number] /
--- NOTE | 2018-05-21 07:33 | CONS ---
CONSULTATION Ben Floyd is a 53-year-old male with a history of cough with increasing shortness of breath and wheezing for about 1-2 weeks duration. He denied any clear fever, had some occasional chills. He subsequently was seen in the ED and admitted for further evaluation. He had been exposed to leaves that he had been raking up. PAST MEDICAL HISTORY: Positive for hepatitis C, cirrhosis of the liver, status post liver transplant. History of C difficile colitis. History of variceal banding, previous multiple paracentesis and thoracentesis with previous tips procedure. FAMILY HISTORY: Positive for CVA and myocardial infarction in his mother. Father from car accident. MEDICATIONS: Prior to admission were oxycodone, Prograf, CellCept, and magnesium oxide. SOCIAL HISTORY: Patient used to use cocaine, heroin, and marijuana in the past. He is a current everyday smoker at this time. REVIEW OF SYSTEMS: Noncontributory. PHYSICAL EXAMINATION: Respiratory rate is 17, pulse rate is 78, temperature 97.6, blood pressure 126/71, O2 saturation on room is 98%. HEENT reveals pupils that are equal. No jugular venous distention. Chest reveals decreased breath sounds. Prolonged expiration. Bilateral expiratory wheeze. Cardiovascular system reveals an S1, S2. Abdomen is soft. There is no pedal edema. White count is 4.4, hemoglobin of 14.7, platelet count of 131. Sodium 141, potassium 4.6, chloride 109, bicarb 26, BUN 39, creatinine 1.47. Chest x-ray shows blunting of the right costophrenic angle. IMPRESSION: 1. Asthma with acute exacerbation. 2. Possible chronic obstructive pulmonary disease. 3. History of liver transplant because of previous hepatitis C. At this point in time from a pulmonary standpoint, keep the patient on IV steroids, bronchodilators, aerosolized steroids. Add montelukast to his regimen. Increase his activity level. Keep him on GI and DVT prophylaxis. Will follow him closely during his hospital stay and appreciate the opportunity to participate in his care. MMODL / IJN: [id number] /
[2018-05-21] MEDS ORDERED: BUDESONIDE 0.5 MG/2 ML NEBU INHALATION SCH (08:00)
[2018-05-21] MEDS: MAGNESIUM OXIDE 400 MG TAB PO SCH (08:24)
[2018-05-21] MEDS: TACROLIMUS 1 MG CAP PO SCH (08:25)
[2018-05-21] MEDS: HEPARIN SODIUM,PORCINE 5,000 UNIT/ML 1 ML VIAL SQ SCH ×2 (08:25→08:38)
[2018-05-21] MEDS: AMOXIC-POT CLAV 875-125MG 1 EACH TAB PO SCH (08:25)
[2018-05-21] MEDS ORDERED: FAMOTIDINE 20 MG TAB PO SCH (09:00)
[2018-05-21 10:05] VITALS: PULSE 78; RESP 17
--- NOTE | 2018-05-21 10:38 | P.PN ---
Subjective Progress Note Date: 05/21/18 HPI: Ben Floyd is a 53-year-old male with a history of cough with increasing shortness of breath and wheezing for about 1-2 weeks duration. He denied any clear fever, had some occasional chills. He subsequently was seen in the ED and admitted for further evaluation and workup. He had been exposed to leaves that he had been raking up. He has a past medical history positive for hepatitis C, cirrhosis of the liver, status post liver transplant, history of C. difficile colitis, history of variceal banding, multiple paracentesis and thoracentesis with previous TIPS procedure. He does have a family history positive for CVA and myocardial infarction in his mother. His father from a car accident. Patient used to use cocaine heroine and marijuana in the past. He is currently an every day smoker at this time. Interval history: 05/21/2018patient is being seen examined and evaluated today on rounds for follow-up. He feels his breathing is better. He is requesting to go home. No fevers or chills overnight. He has been hemodynamically stable. Breathing treatments did help him. Objective - Vital Signs Vital signs: Vital Signs Temp 97.7 F 05/21/18 06:12 Pulse 78 05/21/18 09:00 Resp 17 05/21/18 09:00 BP 116/64 05/21/18 06:12 Pulse Ox 99 05/21/18 06:12 Intake & Output 05/20/18 05/21/18 05/21/18 18:59 06:59 18:59 Intake Total 2320 Balance 2320 Weight 63.503 kg 63.503 kg Intake: Intake, IV Titration 1320 Amount Sodium Chloride 0.9% 1, 1320 000 ml @ 80 mls/hr IV . [id number] JEFFREY Rx#:[id number] Oral 1000 Other: Voiding Method Toilet Toilet # Voids 1 - Exam GENERAL EXAM: Alert, active, comfortable in no apparent distress. HEAD: Normocephalic. EYES: Normal reaction of pupils, equal size. NOSE: Clear with pink turbinates. THROAT: No erythema or exudates. NECK: No masses, no JVD. CHEST: No chest wall deformity. LUNGS: Equal air entry with some prolonged expiratory phase with expiratory wheezing. CVS: S1 and S2 normal with no audible mumurs, regular rhythm. ABDOMEN: No hepatosplenomegaly, normal bowel sounds, no guarding or rigidity. EXTREMITIES: No edema noted, pedal pulses palpable. CENTRAL NERVOUS SYSTEM: No focal deficits, tone is normal in all 4 extremities. - Labs CBC & Chem 7: 05/20/18 15:14 18 15:14 Labs: Abnormal Lab Results - Last 24 Hours (Table) 05/20/18 05/20/18 05/20/18 Range/Units 15:14 15:14 15:14 Plt Count 131 L (150-450) k/uL Chloride 109 H (98-107) mmol/L BUN 39 H (9-20) mg/dL Creatinine 1.47 H (0.66-1.25) mg/dL ALT 74 H (21-72) U/L Alkaline Phosphatase 192 H (38-126) U/L Total Creatine Kinase 24 L (55-170) U/L Assessment and Plan Assessment: Assessment Asthma with acute exacerbation, baseline asthma status unknown Possible COPD with acute exacerbation History of liver transplant with hepatitis C Nicotine dependence Plan Patient is cleared from pulmonary standpoint for discharge Follow the patient closely in the outpatient setting he could benefit from a full PFT Medications have been reviewed and will be continued as ordered. Steroid taper and prescription provided Continue with singular E prescribed Qvar and Ventolin Smoking cessation discussed at length Continue with pulmonary hygiene, coughing and deep breathing exercises, and supportive care. Supplemental oxygen to maintain oxygen saturations of 92% or better. Continue nebulizer treatments. Increase activity as tolerated GI and DVT prophylaxis. We will continue to monitor labs/results and adjust treatment as necessary. Further recommendations pending. I, the signing physician performed an examination of the patient, discussed and directed their management with the nurse practitioner. I have reviewed the nurse practitioner's note and agree with the documented findings, orders and plan of care.
--- NOTE | 2018-06-17 22:32 | DS ---
DISCHARGE SUMMARY DATE OF ADMISSION: 05/20/2018 DATE OF DISCHARGE: 05/21/2018 CONDITION: Stable. PROGNOSIS: Guarded. Ambulate as tolerated. HOME MEDICINES: 1. CellCept 500 b.i.d. 2. Mag oxide 800 b.i.d. 3. Prograf 2 mg b.i.d. 4. Percocet 10/325 every 8 hours. 5. Albuterol inhaler 2 puffs q.4 hours p.r.n. 6. Qvar 80 two puffs b.i.d. 7. Prednisone 10 mg daily. 8. Singulair 10 mg daily. DISCHARGE DIAGNOSES: Patient was admitted with chronic obstructive pulmonary disease exacerbation, asthma with acute exacerbation, history of liver transplant, hepatitis C, nicotine dependence. Patient was given IV antibiotics, IV steroids for 24 hours. Patient was stabilized over the next 2 days, was sent home in stable condition after being cleared by statistics tutor. RONNIE / ELIZABETH: [id number] /
== END 2018-05-21 11:30 ==
LOC: EC 13:33 → INTOOBSV 17:02 → 3NMEDONC 17:02 → UNDODISIN 05-21 11:30
PROVIDERS: ADMIT Family Medicine; ATTEND Family Medicine
DX: J44.1 Chronic obstructive pulmonary disease with (acute) exacerbation (principal); Z94.4 Liver transplant status; J45.901 Unspecified asthma with (acute) exacerbation; I73.9 Peripheral vascular disease, unspecified; F17.210 Nicotine dependence, cigarettes, uncomplicated; D64.9 Anemia, unspecified; Z16.24 Resistance to multiple antibiotics; Z79.899 Other long term (current) drug therapy; Z79.891 Long term (current) use of opiate analgesic; Z86.59 Personal history of other mental and behavioral disorders; Z90.49 Acquired absence of other specified parts of digestive tract; Z87.19 Personal history of other diseases of the digestive system; Z86.19 Personal history of other infectious and parasitic diseases; Z82.3 Family history of stroke; Z82.49 Family history of ischemic heart disease and other diseases of the circulatory system
CPT/HCPCS: 96376 ×2; 96365; 96375; 99291; 36415; 94640 ×4; 93005; 83880; 80053; 82550; 82553; 83735; 84484; 85025; 85610; 85730; 87040; 71046; G0378 ×2; J2930 ×2; J7507 ×2; J7517 ×2; J3475; 96374

== ENCOUNTER 2018-08-13 18:08 | Inpatient (IN) | payer OTHER ==
[2018-08-13] MEDS ORDERED: SODIUM CHLORIDE 0.9% 1,000 ML IV STA ×2 (20:40)
[2018-08-13] MEDS ORDERED: KETOROLAC 30 MG/ML 1 ML VIAL IVP STA (20:40)
[2018-08-13 21:00] LABS: Basophils % (A) 0 %; Eosinophils # (A) 0.1 k/uL (0-0.7); Eosinophils % (A) 3 %; HCT 50.7 % (39.0-53.0); HGB 16.9 gm/dL (13.0-17.5); Lymphocytes # (A) 0.9 k/uL (1.0-4.8); Lymphocytes % (A) 26 %; MCH 29.8 pg (25.0-35.0); MCHC 33.2 g/dL (31.0-37.0); MCV 89.7 fL (80.0-100.0); Mean Platelet Volume 6.7; Monocytes # (A) 0.3 k/uL (0-1.0); Monocytes % (A) 10 %; Neutrophils % (A) 58 %; Platelet Count 134 k/uL (150-450); RBC 5.65 m/uL (4.30-5.90); RDW 13.8 % (11.5-15.5); WBC 3.4 k/uL (3.8-10.6)
[2018-08-13 21:08] LABS: ALT 254 U/L (21-72); AST 207 U/L (17-59); Albumin 3.9 g/dL (3.5-5.0); Alkaline Phosphatase 436 U/L (38-126); Amylase 113 U/L (30-110); Anion Gap 7 mmol/L; Blood Urea Nitrogen 25 mg/dL (9-20); Calcium 9.6 mg/dL (8.4-10.2); Carbon Dioxide 27 mmol/L (22-30); Chloride 108 mmol/L (98-107); Glucose 71 mg/dL (74-99); Lipase 501 U/L (23-300); Potassium 4.1 mmol/L (3.5-5.1); Sodium 142 mmol/L (137-145); Total Bilirubin 4.5 mg/dL (0.2-1.3); Total Protein 7.9 g/dL (6.3-8.2)
[2018-08-13 21:09] LABS: INR 0.9 (<1.2); Partial Thromboplastin Time 28.1 sec (22.0-30.0); Prothrombin Time 9.9 sec (9.0-12.0)
--- NOTE | 2018-08-13 21:47 | XR ---
EXAMINATION TYPE: XR KUB DATE OF EXAM: 08/13/2018 COMPARISON: 02/01/2015 HISTORY: Midabdominal pain TECHNIQUE: 2 upright views FINDINGS: Visualized lung bases and pleural spaces are negative. The stomach is fluid-filled. There is excessive colonic stool. The right mid abdomen laterally shows a few gas-fluid levels in nondilated loops of small bowel. Alissa l gas pattern otherwise unremarkable. No pneumatosis or pneumoperitoneum. No definite acute skeletal or soft tissue findings. IMPRESSION: FLUID-FILLED STOMACH AND EXCESSIVE COLONIC STOOL.
[2018-08-13 22:06] LABS: Appearance,Urine Clear (Clear); Bilirubin,Urine 1+ (Negative); Blood,Urine Negative (Negative); Color,Urine Yellow; Glucose,Urine (UA) Negative (Negative); Ketones,Urine Negative (Negative); Leukocyte Esterase,Urine Negative (Negative); Nitrite,Urine Negative (Negative); PH, Urine 5.5 (5.0-8.0); Protein,Urine Negative (Negative); Specific Gravity,Urine 1.013 (1.001-1.035)
--- NOTE | 2018-08-13 22:37 | CT ---
EXAM: CT Abdomen and Pelvis With Intravenous Contrast CLINICAL HISTORY: Abdominal pain TECHNIQUE: Axial computed tomography images of the abdomen and pelvis with intravenous contrast. CTDI is 0.085, 0.085, 5.6, 5.9 mGy and DLP is 530. 7 mGy-cm. This CT exam was performed using one or more of the following dose reduction techniques: automated exposure control, adjustment of the mA and/or kV according to patient size, and/or use of iterative reconstruction technique. COMPARISON: CT abdomen and pelvis dated 06/12/2016 FINDINGS: Lung bases: Dependent atelectasis. ABDOMEN: Liver: Post surgical changes of the liver consistent with OLT. Decreased attenuation liver which may be phase of IV contrast versus hepatic steatosis. Gallbladder and bile ducts: Gallbladder is surgically absent. Pancreas: Unremarkable. Spleen: Splenomegaly. Adrenals: Unremarkable. Kidneys and ureters: Unremarkable. Stomach and bowel: Fluid is noted throughout the small bowel, which is nonspecific. No bowel wall thickening. PELVIS: Appendix: Appendix is surgically absent. Bladder: Unremarkable. Reproductive: Unremarkable as visualized. ABDOMEN and PELVIS: Intraperitoneal space: Small amount of free fluid the pelvis. Bones/joints: No acute fracture. No dislocation. Soft tissues: Small fat-containing umbilical hernia. Vasculature: Unremarkable. No abdominal aortic aneurysm. Lymph nodes: Subcentimeter retroperitoneal lymphadenopathy which may be reactive. IMPRESSION: 1. Post surgical changes of the liver consistent with OLT. 2. Splenomegaly. 3. Fluid is noted throughout the small bowel, which is nonspecific. No bowel wall thickening. 4. Small amount of free fluid the pelvis.
--- NOTE | 2018-08-13 23:17 | ED ---
General Adult HPI - General Chief complaint: Recheck/Abnormal Lab/Rx Stated complaint: weakness/blurred vision/abdominal pain Time Seen by Provider: 08/13/18 20:32 Source: patient Mode of arrival: ambulatory Limitations: no limitations - History of Present Illness Initial comments: This 53-year-old white male presents with a complaint of some abdominal pain and diarrhea. He states that he's had this for approximately 5 days. He has a proximally 3 episodes of diarrhea per day. He denies any recent antibiotic use or travel. He complains of a diffuse abdominal pain as well. He denies any nausea, vomiting, fever, or chills. He does have a history of C. difficile colitis but this was over 10 years ago. He also has a history of hepatitis C as well as alcohol and drug abuse. He apparently was at the rehab center [facility] and transferred here. He states that he was worried about possibly starting drinking alcohol again so went to the rehab center. He states that he has not started drinking alcohol again. He has a history of previous liver transplant at [facility]. No other complaints or modifying factors. - Related Data Home Medications Medication Instructions Recorded Confirmed Magnesium Oxide [Mag-Ox] 800 mg PO BID 08/23/16 08/13/18 Mycophenolate Mofetil [Cellcept] 500 mg PO Q12H 08/23/16 08/13/18 Tacrolimus [Prograf] 2 mg PO BID 08/30/16 08/13/18 oxyCODONE-APAP 10-325MG [Percocet 1 tab PO Q8HR 05/20/18 08/13/18 10-325 mg] Albuterol Inhaler [Ventolin Hfa 2 puff INHALATION RT-Q4H PRN 08/13/18 08/13/18 Inhaler] Aspirin EC [Ecotrin Low Dose] 81 mg PO DAILY 08/13/18 08/13/18 Beclomethasone Dipropionate [Qvar 2 puff INHALATION RT-BID 08/13/18 08/13/18 80 mcg] Allergies Allergy/AdvReac Type Severity Reaction Status Date / Time No Known Allergies Allergy Verified 08/13/18 21:21 Review of Systems ROS Statement: Those systems with pertinent positive or pertinent negative responses have been documented in the HPI. ROS Other: All systems not noted in ROS Statement are negative. Past Medical History Past Medical History: GI Bleed, Liver Disease Additional Past Medical History / Comment(s): Hepatitis C, cirrhosis, appendicitis, anemia alcoholic cirrhosis/ refractory ASCITIES, past c-diff -- 15, ABD HERNIA, PVD, varices, recurrent Right pleural effusion. THORACENTESIS 04/22 History of Any Multi-Drug Resistant Organisms: C-DIFF Date of last positivie culture/infection: 07/15/2014 MDRO Source:: previous admission Past Surgical History: Appendectomy Additional Past Surgical History / Comment(s): multiple paracentesis, variceal banding, EGDAdditional Medical Hx: Hepatitis C; Cirrhosis, multiple thoracentesis,TIPS procedure liver transplant, lung surgery, "shattered rt ankle after falling 3 story roof-has plate/akil,screws" Past Anesthesia/Blood Transfusion Reactions: No Reported Reaction Additional Past Anesthesia/Blood Transfusion Reaction / Comment(s): HAS HAD BLOOD TRANSFUSIONS-NO REACTION Past Psychological History: No Psychological Hx Reported Smoking Status: Current every day smoker Past Alcohol Use History: Abuse Past Drug Use History: None Reported - Past Family History Mother Family Medical History: CVA/TIA, Myocardial Infarction ([place]) Additional Family Medical History / Comment(s): currently alive and 90 years old Father Family Medical History: No Reported History Additional Family Medical History / Comment(s): from car accident General Exam - General Exam Comments Initial Comments: GENERAL: The patient is well nourished and well hydrated. VITAL SIGNS: Heart rate, blood pressure, respiratory rate reviewed as recorded in nurse's notes. EYES: Pupils are round and reactive. Extraocular movements are intact. No conjunctival / lid redness or swelling. ENT: No external evidence of injury, swelling, or ecchymosis. Airway is patent. Throat is clear. NECK: Nontender. No swelling or evidence of injury. No subcutaneous emphysema. Trachea is midline. No thyroid mass. HEART: Regular rate and rhythm. Good peripheral pulses. LUNGS/CHEST: Breath sounds clear and equal bilaterally. No rales, rhonchi, or wheezes. No ecchymosis, subcutaneous emphysema, or tenderness. ABDOMEN: There is mild diffuse tenderness to the abdomen. Multiple abdominal scars noted. No palpable masses or organomegaly. No peritoneal signs. No abdominal wall swelling or ecchymosis. EXTREMITIES: No extremity tenderness. Normal muscle tone and function. No thoracolumbar tenderness. NEUROLOGIC: Sensation is grossly intact. Cranial nerve exam reveals face is symmetrical, tongue is midline, speech is clear. SKIN: No abrasions or ecchymosis is noted. No induration or masses noted. PSYCHIATRIC: Alert and oriented. Appropriate behavior and judgment. Limitations: no limitations Course Vital Signs 08/13/18 18:17 Temperature 97.7 F Pulse Rate 70 Respiratory 18 Rate Blood Pressure 146/84 O2 Sat by Pulse 99 Oximetry Medical Decision Making - Medical Decision Making The patient was seen and examined. All diagnostics were reviewed. An IV was established and he was hydrated. He also received Toradol intravenously for pain. He had an EKG done which shows a normal sinus rhythm. There is no acute ST-T wave changes identified. The [place] intervals 126, QRS duration is 96, and the QTC intervals 414. He had a computed tomography scan of the abdomen and pelvis and this does show multiple areas of fluid in the bowels. There is also some scant fluid in the abdomen which is likely related to some ascites. He does have a history of ascites with previous paracentesis. There are post surgical changes noted. His laboratory came back showing a significant elevation as compared to previous for his liver function studies as well as his pancreatic studies. The exact cause of this is not definitively determined. It is certainly felt that a relapse of his alcohol abuse would be highly suspicious. The possibility of this being related to his hepatitis C also is plausible. Nevertheless, it is felt as though he would require admission to the hospital for further treatment. He is agreeable. The case will be discussed with internal medicine shortly and he is admitted to the general medical floor. - Lab Data Result diagrams: 08/13/18 20:39 08/13/18 20:39 Lab Results 08/13/18 08/13/18 08/13/18 Range/Units 20:39 20:39 20:39 WBC 3.4 L (3.8-10.6) k/uL RBC 5.65 (4.30-5.90) m/uL Hgb 16.9 (13.0-17.5) gm/dL Hct 50.7 (39.0-53.0) % MCV 89.7 (80.0-100.0) fL MCH 29.8 (25.0-35.0) pg MCHC 33.2 (31.0-37.0) g/dL RDW 13.8 (11.5-15.5) % Plt Count 134 L (150-450) k/uL Neutrophils % 58 % Lymphocytes % 26 % Monocytes % 10 % Eosinophils % 3 % Basophils % 0 % Neutrophils # 2.0 (1.3-7.7) k/uL Lymphocytes # 0.9 L (1.0-4.8) k/uL Monocytes # 0.3 (0-1.0) k/uL Eosinophils # 0.1 (0-0.7) k/uL Basophils # 0.0 (0-0.2) k/uL PT 9.9 (9.0-12.0) sec INR 0.9 (<1.2) APTT 28.1 (22.0-30.0) sec Sodium 142 (137-145) mmol/L Potassium 4.1 (3.5-5.1) mmol/L Chloride 108 H (98-107) mmol/L Carbon Dioxide 27 (22-30) mmol/L Anion Gap 7 mmol/L BUN 25 H (9-20) mg/dL Creatinine 0.91 (0.66-1.25) mg/dL Est GFR (CKD-EPI)AfAm >90 (>60 ml/min/1.73 sqM) Est GFR (CKD-EPI)NonAf >90 (>60 ml/min/1.73 sqM) Glucose 71 L (74-99) mg/dL Calcium 9.6 (8.4-10.2) mg/dL Total Bilirubin 4.5 H (0.2-1.3) mg/dL AST 207 H (17-59) U/L ALT 254 H (21-72) U/L Alkaline Phosphatase 436 H (38-126) U/L Total Protein 7.9 (6.3-8.2) g/dL Albumin 3.9 (3.5-5.0) g/dL Amylase 113 H (30-110) U/L Lipase 501 H (23-300) U/L Urine Color Urine Appearance (Clear) Urine pH (5.0-8.0) Ur Specific [place] (1.001-1.035) Urine Protein (Negative) Urine Glucose (UA) (Negative) Urine Ketones (Negative) Urine Blood (Negative) Urine Nitrite (Negative) Urine Bilirubin (Negative) Urine Urobilinogen (<2.0) mg/dL Ur Leukocyte Esterase (Negative) 08/13/18 Range/Units 21:45 WBC (3.8-10.6) k/uL RBC (4.30-5.90) m/uL Hgb (13.0-17.5) gm/dL Hct (39.0-53.0) % MCV (80.0-100.0) fL MCH (25.0-35.0) pg MCHC (31.0-37.0) g/dL RDW (11.5-15.5) % Plt Count (150-450) k/uL Neutrophils % % Lymphocytes % % Monocytes % % Eosinophils % % Basophils % % Neutrophils # (1.3-7.7) k/uL Lymphocytes # (1.0-4.8) k/uL Monocytes # (0-1.0) k/uL Eosinophils # (0-0.7) k/uL Basophils # (0-0.2) k/uL PT (9.0-12.0) sec INR (<1.2) APTT (22.0-30.0) sec Sodium (137-145) mmol/L Potassium (3.5-5.1) mmol/L Chloride (98-107) mmol/L Carbon Dioxide (22-30) mmol/L Anion Gap mmol/L BUN (9-20) mg/dL Creatinine (0.66-1.25) mg/dL Est GFR (CKD-EPI)AfAm (>60 ml/min/1.73 sqM) Est GFR (CKD-EPI)NonAf (>60 ml/min/1.73 sqM) Glucose (74-99) mg/dL Calcium (8.4-10.2) mg/dL Total Bilirubin (0.2-1.3) mg/dL AST (17-59) U/L ALT (21-72) U/L Alkaline Phosphatase (38-126) U/L Total Protein (6.3-8.2) g/dL Albumin (3.5-5.0) g/dL Amylase (30-110) U/L Lipase (23-300) U/L Urine Color Yellow Urine Appearance Clear (Clear) Urine pH 5.5 (5.0-8.0) Ur Specific [place] 1.013 (1.001-1.035) Urine Protein Negative (Negative) Urine Glucose (UA) Negative (Negative) Urine Ketones Negative (Negative) Urine Blood Negative (Negative) Urine Nitrite Negative (Negative) Urine Bilirubin 1+ H (Negative) Urine Urobilinogen 4.0 (<2.0) mg/dL Ur Leukocyte Esterase Negative (Negative) Disposition Clinical Impression: Hepatitis C, Hepatic failure, History of alcohol abuse, Pancreatitis, History of liver transplant, Hypertension, Abdominal pain, Diarrhea Disposition[facility] Condition: Fair Instructions (If sedation given, give patient instructions): Abdominal Pain (ED ) Referrals: None,Stated [Primary Care Provider] - 1-2 days Time of Disposition: 23:14 Decision Date: 08/13/18 Decision Time: 23:15
[2018-08-13] MEDS ORDERED: NALOXONE 0.4 MG/ML 1 ML VIAL IV PRN (23:18)
[2018-08-13] MEDS ORDERED: ONDANSETRON 4 MG/2 ML VIAL IVP PRN (23:18)
[2018-08-13] MEDS ORDERED: ALBUTEROL NEBULIZED 2.5 MG/3 ML INHALATION PRN (23:21)
[2018-08-13] MEDS: MYCOPHENOLATE MOFETIL 500 MG TAB PO SCH (23:53)
[2018-08-13] MEDS: oxyCODONE-APAP 10-325MG 1 EACH TAB PO SCH (23:54)
[2018-08-14 01:49] VITALS: RESP 16
[2018-08-14 07:42] LABS: Prothrombin Time 10.6 sec (9.0-12.0)
[2018-08-14 07:55] LABS: ALT 209 U/L (21-72); AST 179 U/L (17-59); Alkaline Phosphatase 343 U/L (38-126); Amylase 141 U/L (30-110); Anion Gap 4 mmol/L; Blood Urea Nitrogen 20 mg/dL (9-20); Calcium 8.6 mg/dL (8.4-10.2); Carbon Dioxide 21 mmol/L (22-30); Chloride 115 mmol/L (98-107); Glucose 81 mg/dL (74-99); Lipase 599 U/L (23-300); Potassium 4.3 mmol/L (3.5-5.1); Sodium 140 mmol/L (137-145); Total Bilirubin 3.7 mg/dL (0.2-1.3); Total Protein 6.3 g/dL (6.3-8.2)
[2018-08-14] MEDS ORDERED: BUDESONIDE 1 MG/2 ML NEBU INHALATION SCH (08:00)
[2018-08-14 08:38] VITALS: BMI 18.6
[2018-08-14] MEDS: oxyCODONE-APAP 10-325MG 1 EACH TAB PO SCH ×2 (08:57→15:09)
[2018-08-14] MEDS ORDERED: MAGNESIUM OXIDE 400 MG TAB PO SCH (09:00)
[2018-08-14] MEDS ORDERED: ASPIRIN 81 MG PO SCH (09:00)
[2018-08-14] MEDS ORDERED: TACROLIMUS 1 MG CAP PO SCH (09:00)
[2018-08-14] MEDS ORDERED: ENOXAPARIN 40 MG/0.4 ML SYRINGE SQ SCH (09:00)
[2018-08-14] MEDS: MYCOPHENOLATE MOFETIL 500 MG TAB PO SCH (11:49)
--- NOTE | 2018-08-14 12:38 | P.CONS ---
History of Present Illness - Reason for Consult Consult date: 08/14/18 Hepatitis pancreatitis Requesting physician: Omar Ferraro - Chief Complaint Abdominal pain diarrhea - History of Present Illness 53-year-old gentleman admitted with new onset of jaundice abdominal pain diarrhea intermittently last week. Denies hematemesis hematochezia or melena. Past medical history of cholecystectomy, hepatitis C, Clostridium difficile colitis, EtOH abuse, drug abuse, liver transplantation in 2016 at [facility] maintained on antirejection medications. Admission white count 3.4. Hemoglobin 16.9. Platelet 134. INR 1.0. Total bilirubin 4.5 presently 3.7. AST 179-207. ALT 29-to 54. AP 343-436 pre-lipase 501-599. Amylase 113-141. Patient is completed antiviral therapy in the past for hepatitis C quantitative measurement undetected in October 2016. CT abdomen unremarkable pancreas. Postsurgical changes liver consistent with OLT. Splenomegaly. Small amount of free fluid in the pelvis. Patient has been staying at a local rehabilitation center for the last few weeks secondary to a recent relationship breakup. Patient was afraid he would start to drink and that's why he went to rehab. He vehemently denies alcohol or intravenous drug abuse. He has been vaccinated against hepatitis A/B. No recent travels. Anus diffuse located mostly in the upper abdomen. LFTs in May were fairly unremarkable; total bilirubin AST within normal limits, ALT 74. AP 192. Review of Systems Constitutional: Denies fever, chills, sweats, weight gain, or loss. HEENT: Negative for migraines, blurred vision or loss, earaches, drainage, tinnitus, oral mucosal lesions, dysphagia, or odynophagia. Cardiac: Negative for chest pain, arrhythmias, or palpitation. Respiratory: Negative for shortness of breath, hemoptysis, cough, or sputum production. Gastrointestinal: See HPI for pertinent findings. Genitourinary: Negative for hematuria, urgency, frequency, polyuria, dysuria, or penile discharge. Musculoskeletal: Negative for muscle aches, swelling, arthritis, and arthralgias. Neurologic: Negative for stroke or TIA. Endocrine: Negative for thyroid problems. Skin: Negative for rash or itching. Psychiatric: Negative history for depression and anxiety Past Medical History Past Medical History: GI Bleed, Liver Disease Additional Past Medical History / Comment(s): Hepatitis C, cirrhosis, appendicitis, anemia alcoholic cirrhosis/ refractory ASCITIES, past c-diff 1-7- 15, ABD HERNIA, PVD, varices, recurrent Right pleural effusion. THORACENTESIS 04/22 History of Any Multi-Drug Resistant Organisms: C-DIFF Year Discovered:: 07/15/2014 MDRO Source:: previous admission Past Surgical History: Appendectomy Additional Past Surgical History / Comment(s): multiple paracentesis, variceal banding, EGDAdditional Medical Hx: Hepatitis C; Cirrhosis, multiple thoracentesis,TIPS procedure liver transplant, lung surgery, "shattered rt ankle after falling 3 story roof-has plate/akil,screws" Past Anesthesia/Blood Transfusion Reactions: No Reported Reaction Additional Past Anesthesia/Blood Transfusion Reaction / Comm: HAS HAD BLOOD TRANSFUSIONS-NO REACTION Past Psychological History: No Psychological Hx Reported Additional Psychological History / Comment(s): PT STATED HE LIVES ALONE HAS 1 PET CAT. 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 NO OUTSIDE SERVICES . Smoking Status: Current every day smoker Past Alcohol Use History: Abuse Additional Past Alcohol Use History / Comment(s): pt states he smokes a half of a pack a day. Past Drug Use History: None Reported Additional Drug Use History / Comment(s): pt stated past heroine, cocaine and marijuana use. QUIT 2016 - Past Family History Mother Family Medical History: CVA/TIA, Myocardial Infarction ([place]) Additional Family Medical History / Comment(s): currently alive and 90 years old Father Family Medical History: No Reported History Additional Family Medical History / Comment(s): from car accident Medications and Allergies Home Medications Medication Instructions Recorded Confirmed Type Magnesium Oxide [Mag-Ox] 800 mg PO BID 08/23/16 08/13/18 History Mycophenolate Mofetil [Cellcept] 500 mg PO Q12H 08/23/16 08/13/18 History Tacrolimus [Prograf] 2 mg PO BID 08/30/16 08/13/18 History oxyCODONE-APAP 10-325MG [Percocet 1 tab PO Q8HR 05/20/18 08/13/18 History 10-325 mg] Albuterol Inhaler [Ventolin Hfa 2 puff INHALATION RT-Q4H PRN 08/13/18 08/13/18 History Inhaler] Aspirin EC [Ecotrin Low Dose] 81 mg PO DAILY 08/13/18 08/13/18 History Beclomethasone Dipropionate [Qvar 2 puff INHALATION RT-BID 08/13/18 08/13/18 History 80 mcg] Allergies Allergy/AdvReac Type Severity Reaction Status Date / Time No Known Allergies Allergy Verified 08/13/18 21:21 Physical Exam Vitals: Vital Signs Temp Pulse Pulse Resp BP BP Pulse Ox 08/14/18 09:01 97.4 F L 80 16 120/78 99 08/14/18 01:00 97.6 F 65 16 124/77 99 08/13/18 23:43 97.8 F 60 19 130/83 99 08/13/18 22:00 115/64 08/13/18 21:40 115/64 98 08/13/18 21:10 16 126/83 98 08/13/18 20:40 97 08/13/18 20:39 100 08/13/18 18:17 97.7 F 70 18 146/84 99 Intake and Output 08/13/18 08/14/18 08/14/18 22:59 06:59 14:59 Intake Total 2540 540 Balance 2540 540 Intake: Intake, IV Titration 2000 Amount Sodium Chloride 0.9% 1, 1000 000 ml @ 100 mls/hr IV . Q10H STA Rx#:[id number] Sodium Chloride 0.9% 1, 1000 000 ml @ 999 mls/hr IV . Q1H1M STA Rx#:[id number] Oral 540 540 Other: # Voids 3 Weight 58.967 kg 58.967 kg General appearance: The patient is alert, oriented, in no acute distress. Jaundice. HET: Head is normocephalic and atraumatic. Pupils are equal and reactive. Oropharynx is clear without lesions. Sclerae icterus. Neck: Supple without lymphadenopathy. Trachea midline. Heart: S1 S2. Regular rate and rhythm. Lungs: No crackles or wheezes are heard. Abdomen: Soft, mild tenderness across the mid upper abdomen, nondistended with bowel sounds. No peritoneal signs. No palpable organomegaly or masses. Extremities: Normal skin color and turgor. No cyanosis, rash, ulceration, clubbing, or edema. Radial and pedal pulses are 2/4 bilaterally. Neurological: No focal deficits. Strength and sensation are grossly intact. Results CBC & Chem 7: 08/13/18 20:39 08/14/18 07:06 Labs: Abnormal Lab Results - Last 24 Hours (Table) 08/13/18 08/13/18 08/13/18 Range/Units 20:39 20:39 21:45 WBC 3.4 L (3.8-10.6) k/uL Plt Count 134 L (150-450) k/uL Lymphocytes # 0.9 L (1.0-4.8) k/uL Chloride 108 H (98-107) mmol/L Carbon Dioxide (22-30) mmol/L BUN 25 H (9-20) mg/dL Glucose 71 L (74-99) mg/dL Total Bilirubin 4.5 H (0.2-1.3) mg/dL AST 207 H (17-59) U/L ALT 254 H (21-72) U/L Alkaline Phosphatase 436 H (38-126) U/L Albumin (3.5-5.0) g/dL Amylase 113 H (30-110) U/L Lipase 501 H (23-300) U/L Urine Bilirubin 1+ H (Negative) 08/14/18 Range/Units 07:06 WBC (3.8-10.6) k/uL Plt Count (150-450) k/uL Lymphocytes # (1.0-4.8) k/uL Chloride 115 H (98-107) mmol/L Carbon Dioxide 21 L (22-30) mmol/L BUN (9-20) mg/dL Glucose (74-99) mg/dL Total Bilirubin 3.7 H (0.2-1.3) mg/dL AST 179 H (17-59) U/L ALT 209 H (21-72) U/L Alkaline Phosphatase 343 H (38-126) U/L Albumin 3.0 L (3.5-5.0) g/dL Amylase 141 H (30-110) U/L Lipase 599 H (23-300) U/L Urine Bilirubin (Negative) CT scan - abdomen: report reviewed (Dr. Callejas) Assessment and Plan (1) Acute hepatitis Narrative/Plan: 53-year-old gentleman with a history of hepatitis C status post completion of antiviral therapy in 2017 and liver transplantation in 2016 at [facility] presents with acute onset of jaundice elevated liver enzymes diffuse upper abdominal pain and nonbloody diarrhea intermittently over the last week. Possible viral hepatitis however liver transplantation failure could not be excluded. Current Visit: Yes Status: Acute Code(s): B17.9 - ACUTE VIRAL HEPATITIS, UNSPECIFIED SNOMED Code(s): 29107474 (2) History of hepatitis C Current Visit: Yes Status: Acute Code(s): Z86.19 - PERSONAL HISTORY OF OTHER INFECTIOUS AND PARASITIC DISEASES SNOMED Code(s): 87277550762872 (3) Abdominal pain Current Visit: Yes Status: Acute Code(s): R10.9 - UNSPECIFIED ABDOMINAL PAIN SNOMED Code(s): 77278308 (4) Diarrhea Current Visit: Yes Status: Acute Code(s): R19.7 - DIARRHEA, UNSPECIFIED SNOMED Code(s): 04238192 (5) History of alcohol abuse Current Visit: Yes Status: Acute Code(s): Z87.898 - PERSONAL HISTORY OF OTHER SPECIFIED CONDITIONS SNOMED Code(s): 967059452 (6) History of liver transplant Current Visit: Yes Status: Acute Priority: Medium Code(s): Z94.4 - LIVER TRANSPLANT STATUS SNOMED Code(s): 047883797 Plan: 1. C. diff testing requested. Hepatitis panel. Considering his history of liver transplantation as well as new onset of jaundice recommend transfer to tertiary center for further evaluation. Thank you for this kind referral and the opportunity to participate in the care of your patient. This consultation was discussed with Dr. Callejas. The impression and plan of care have been directed as dictated.
[2018-08-14] MEDS ORDERED: LORazepam 2 MG/ML INJ IV STA (15:51)
[2018-08-14 15:52] VITALS: BP 139/82; PULSE 63; TEMP 97.9
--- NOTE | 2018-08-14 16:48 | P.HPIM ---
History of Present Illness H&P Date: 08/14/18 Chief Complaint: Diarrhea, dizziness and abdominal discomfort Patient is a 53-year-old male with a known history of alcoholic and hepatitis C liver cirrhosis status post liver transplant in 2016, hepatitis C with treatment and 2017 came to ER with complaints of diffuse abdominal pain and diarrhea for the past 5 days. Patient does have about 3-4 bowel movements daily. Denied any recent unusual food intake. Denied any recent alcohol use. Patient completed treatment course for hepatitis C. Denied any antibiotic use recently. Patient was at rehab center last night secondary to recent relationship breakup. Denied any alcohol use or IVDU. No recent travel otherwise. He states that he is worried about possibility starting drinking alcohol again so he went to the rehab center. Patient states that he did not drink alcohol. Patient was found have elevated bilirubin level IV.5 trending down to 3.7 today. AST 179-207 ALT 254--209 and alk phos 343-436. Amylase 113 and lipase 501. Denied any fever or chills. No complaints of chest pain or shortness of breath. Denied any hematemesis or melena. Patient follows with [facility] liver transplant team otherwise. CT of abdomen pelvis showed postsurgical changes of the liver consistent with poor ALT. Splenomegaly. Fluid is noted throughout the small bowel which is nonspecific. No bowel wall thickening. Small amount of free fluid in the pelvis. UA negative WBC 3.4 BUN 25 KUB x-ray showed fluid-filled stomach and excessive colonic stool. Review of Systems Constitutional: Patient denies any fever or chills . No generalized weakness or weight loss. Abdomen: Patient denied nausea vomiting and patient does have abdominal discomfort mainly in the upper abdomen. A lucero does have diarrhea. Cardiovascular: Patient denies any chest pain or short of breath no palpitations. Respiratory: patient denied any cough is from production. No shortness of breath Neurologic: Patient denied any numbness or tingling headache. Musculoskeletal: Patient denies any complaints of joint swelling or deformity. Skin: Negative Psychiatric: Negative Endocrine: No heat or cold intolerance. No recent weight gain. Genitourinary: No dysuria or hematuria. All other 14 point ROS negative except the above Past Medical History Past Medical History: GI Bleed, Liver Disease Additional Past Medical History / Comment(s): Hepatitis C, cirrhosis, appendicitis, anemia alcoholic cirrhosis/ refractory ASCITIES, past c-diff 1-7- 15, ABD HERNIA, PVD, varices, recurrent Right pleural effusion. THORACENTESIS 04/22 History of Any Multi-Drug Resistant Organisms: C-DIFF Date of last positivie culture/infection: 07/15/2014 MDRO Source:: previous admission Past Surgical History: Appendectomy Additional Past Surgical History / Comment(s): multiple paracentesis, variceal banding, EGDAdditional Medical Hx: Hepatitis C; Cirrhosis, multiple thoracentesis,TIPS procedure liver transplant, lung surgery, "shattered rt ankle after falling 3 story roof-has plate/akil,screws" Past Anesthesia/Blood Transfusion Reactions: No Reported Reaction Additional Past Anesthesia/Blood Transfusion Reaction / Comment(s): HAS HAD BLOOD TRANSFUSIONS-NO REACTION Past Psychological History: No Psychological Hx Reported Additional Psychological History / Comment(s): PT STATED HE LIVES ALONE HAS 1 PET CAT. 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 NO OUTSIDE SERVICES . Smoking Status: Current every day smoker Past Alcohol Use History: Abuse Additional Past Alcohol Use History / Comment(s): pt states he smokes a half of a pack a day. Past Drug Use History: None Reported Additional Drug Use History / Comment(s): pt stated past heroine, cocaine and marijuana use. QUIT 2016 - Past Family History Mother Family Medical History: CVA/TIA, Myocardial Infarction ([place]) Additional Family Medical History / Comment(s): currently alive and 90 years old Father Family Medical History: No Reported History Additional Family Medical History / Comment(s): from car accident Medications and Allergies Home Medications Medication Instructions Recorded Confirmed Type Magnesium Oxide [Mag-Ox] 800 mg PO BID 08/23/16 08/13/18 History Mycophenolate Mofetil [Cellcept] 500 mg PO Q12H 08/23/16 08/13/18 History Tacrolimus [Prograf] 2 mg PO BID 08/30/16 08/13/18 History oxyCODONE-APAP 10-325MG [Percocet 1 tab PO Q8HR 05/20/18 08/13/18 History 10-325 mg] Albuterol Inhaler [Ventolin Hfa 2 puff INHALATION RT-Q4H PRN 08/13/18 08/13/18 History Inhaler] Aspirin EC [Ecotrin Low Dose] 81 mg PO DAILY 08/13/18 08/13/18 History Beclomethasone Dipropionate [Qvar 2 puff INHALATION RT-BID 08/13/18 08/13/18 History 80 mcg] Allergies Allergy/AdvReac Type Severity Reaction Status Date / Time No Known Allergies Allergy Verified 08/13/18 21:21 Physical Exam Vitals: Vital Signs Temp Pulse Pulse Resp BP BP Pulse Ox 08/14/18 09:01 97.4 F L 80 16 120/78 99 08/14/18 01:00 97.6 F 65 16 124/77 99 08/13/18 23:43 97.8 F 60 19 130/83 99 08/13/18 22:00 115/64 08/13/18 21:40 115/64 98 08/13/18 21:10 16 126/83 98 08/13/18 20:40 97 08/13/18 20:39 100 08/13/18 18:17 97.7 F 70 18 146/84 99 Intake and Output 08/13/18 08/14/18 08/14/18 22:59 06:59 14:59 Intake Total 2540 540 Balance 2540 540 Intake: Intake, IV Titration 2000 Amount Sodium Chloride 0.9% 1, 1000 000 ml @ 100 mls/hr IV . Q10H STA Rx#:[id number] Sodium Chloride 0.9% 1, 1000 000 ml @ 999 mls/hr IV . Q1H1M STA Rx#:[id number] Oral 540 540 Other: # Voids 3 Weight 58.967 kg 58.967 kg PHYSICAL EXAMINATION: Patient is lying in the bed comfortably, no acute distress, awake alert and oriented.. HEENT: Normocephalic. Neck is supple. Pupils reactive. Nostrils clear. Oral cavity is moist. Ears reveal no drainage. Neck reveals no JVD, carotid bruits, or thyromegaly. CHEST EXAMINATION: Trachea is central. Symmetrical expansion. Lung arreaga clear to auscultation and percussion. CARDIAC: Normal S1, S2 with no gallops. No murmurs ABDOMEN: Soft. Mild epigastric tenderness Bowel sounds normal. No organomegaly. No abdominal bruits. Extremities: reveal no edema. No clubbing or cyanosis Neurologically awake, alert, oriented x3 with well-coordinated movements. No focal deficits noted Skin: No rash or skin lesions. Psychiatric: Coperative. Nonsuicidal Musculoskeletal: No joint swelling or deformity. Normal range of motion. Results CBC & Chem 7: 08/13/18 20:39 08/14/18 07:06 Labs: Abnormal Lab Results - Last 24 Hours (Table) 08/13/18 08/13/18 08/13/18 Range/Units 20:39 20:39 21:45 WBC 3.4 L (3.8-10.6) k/uL Plt Count 134 L (150-450) k/uL Lymphocytes # 0.9 L (1.0-4.8) k/uL Chloride 108 H (98-107) mmol/L Carbon Dioxide (22-30) mmol/L BUN 25 H (9-20) mg/dL Glucose 71 L (74-99) mg/dL Total Bilirubin 4.5 H (0.2-1.3) mg/dL AST 207 H (17-59) U/L ALT 254 H (21-72) U/L Alkaline Phosphatase 436 H (38-126) U/L Albumin (3.5-5.0) g/dL Amylase 113 H (30-110) U/L Lipase 501 H (23-300) U/L Urine Bilirubin 1+ H (Negative) 08/14/18 Range/Units 07:06 WBC (3.8-10.6) k/uL Plt Count (150-450) k/uL Lymphocytes # (1.0-4.8) k/uL Chloride 115 H (98-107) mmol/L Carbon Dioxide 21 L (22-30) mmol/L BUN (9-20) mg/dL Glucose (74-99) mg/dL Total Bilirubin 3.7 H (0.2-1.3) mg/dL AST 179 H (17-59) U/L ALT 209 H (21-72) U/L Alkaline Phosphatase 343 H (38-126) U/L Albumin 3.0 L (3.5-5.0) g/dL Amylase 141 H (30-110) U/L Lipase 599 H (23-300) U/L Urine Bilirubin (Negative) Thrombosis Risk Factor Assmnt - DVT/VTE Prophylaxis DVT/VTE Prophylaxis: Pharmacologic Prophylaxis ordered - Choose All That Apply Any of the Below Risk Factors Present?: Yes Each Factor Represents 1 point: Age 41-60 years Other Risk Factors: No Other congenital or acquired thrombophilia - If yes, enter type in comment: No Thrombosis Risk Factor Assessment Total Risk Factor Score: 1 Thrombosis Risk Factor Assessment Level: Low Risk Assessment and Plan Assessment: Diarrhea rule out C. diff infection. Likely viral gastroenteritis. Acute transaminitis. Possible viral hepatitis however liver transplantation failure could not be excluded. Elevated lipase and amylase History of hepatitis C status post treatment in 2017 Upper abdominal discomfort History of alcohol abuse. Currently denied any alcohol no recent use. History of liver transplant in 2016 History of alcoholic liver cirrhosis Peripheral vascular disease History of esophageal varices Nicotine addiction half pack per day History of uterine cocaine and marijuana use quit in 2016 Plan: Patient will be continued on IV hydration. Stool for C. diff toxin was sent area and repeat liver enzymes and alk phos level is trending down. Patient was seen by gastroenterology. Hepatitis panel was ordered. Due to history of liver transplant and elevated liver enzymes, suspected transplantation failure and recommended to transfer to tertiary care facility for further management. Otherwise patient is hemodynamically stable at this time. Yousif is guarded. Time with Patient: Greater than 30
[2018-08-14 19:56] LABS: Hepatitis A Antibody IgM Non-Reactive (Non-Reactive); Hepatitis B Core IgM Non-Reactive (Non-Reactive)
--- NOTE | 2018-08-16 10:14 | P.DS ---
Providers Date of admission: 08/13/18 23:17 Expected date of discharge: 08/14/18 Attending physician: Omar Ferraro Consults: 08/13/18 23:20 Consult Physician Urgent Consulting Provider: Kayode Callejas Consult Reason/Comments: hepatitis, pancreatitis Do you want consulting provider notified?: Yes Primary care physician: Stated None Hospital Course: Discharge diagnosis Diarrhea rule out C. diff infection. Likely viral gastroenteritis. Acute transaminitis. Possible viral hepatitis however liver transplantation failure could not be excluded. Elevated lipase and amylase History of hepatitis C status post treatment in 2017 Upper abdominal discomfort History of alcohol abuse. Currently denied any alcohol no recent use. History of liver transplant in 2016 History of alcoholic liver cirrhosis Peripheral vascular disease History of esophageal varices Nicotine addiction half pack per day History of Heroin, cocaine and marijuana use quit in 2016 Hospital course Patient is a 53-year-old male with a known history of alcoholic and hepatitis C liver cirrhosis status post liver transplant in 2016, hepatitis C with treatment and 2017 came to ER with complaints of diffuse abdominal pain and diarrhea for the past 5 days. Patient does have about 3-4 bowel movements daily. Denied any recent unusual food intake. Denied any recent alcohol use. Patient completed treatment course for hepatitis C. Denied any antibiotic use recently. Patient was at rehab center last night secondary to recent relationship breakup. Denied any alcohol use or IVDU. No recent travel otherwise. He states that he is worried about possibility starting drinking alcohol again so he went to the rehab center. Patient states that he did not drink alcohol. Patient was found have elevated bilirubin level IV.5 trending down to 3.7 today. AST 179-207 ALT 254--209 and alk phos 343-436. Amylase 113 and lipase 501. Denied any fever or chills. No complaints of chest pain or shortness of breath. Denied any hematemesis or melena. Patient follows with [facility] liver transplant team otherwise. CT of abdomen pelvis showed postsurgical changes of the liver consistent with poor ALT. Splenomegaly. Fluid is noted throughout the small bowel which is nonspecific. No bowel wall thickening. Small amount of free fluid in the pelvis. UA negative WBC 3.4 BUN 25 KUB x-ray showed fluid-filled stomach and excessive colonic stool. Plan: Patient was continued on IV hydration. Stool for C. diff toxin was sent area and repeat liver enzymes and alk phos level is trending down. Patient was seen by gastroenterology. Hepatitis panel was ordered. Due to history of liver transplant and elevated liver enzymes, suspected transplantation failure and recommended to transfer to tertiary care facility for further management. Otherwise patient is hemodynamically stable at this time. Discussed with [facility] transfer team. Patient will be transferred to [facility] for further management. Prognosis is guarded. Discharge physical examination was done and vitals reviewed. Total time taken greater than 35 minutes including 18 minutes for counseling and coordination of care. Patient Condition at Discharge: Fair Plan - Discharge Summary Discharge Rx Participant: Yes New Discharge Prescriptions: No Action Mycophenolate Mofetil [Cellcept] 500 mg PO Q12H Magnesium Oxide [Mag-Ox] 800 mg PO BID Tacrolimus [Prograf] 2 mg PO BID oxyCODONE-APAP 10-325MG [Percocet 10-325 mg] 1 tab PO Q8HR Beclomethasone Dipropionate [Qvar 80 mcg] 2 puff INHALATION RT-BID Aspirin EC [Ecotrin Low Dose] 81 mg PO DAILY Albuterol Inhaler [Ventolin Hfa Inhaler] 2 puff INHALATION RT-Q4H PRN PRN Reason: Wheezing Discharge Medication List Magnesium Oxide [Mag-Ox] 800 mg PO BID 08/23/16 [History] Mycophenolate Mofetil [Cellcept] 500 mg PO Q12H 08/23/16 [History] Tacrolimus [Prograf] 2 mg PO BID 08/30/16 [History] oxyCODONE-APAP 10-325MG [Percocet 10-325 mg] 1 tab PO Q8HR 05/20/18 [History] Albuterol Inhaler [Ventolin Hfa Inhaler] 2 puff INHALATION RT-Q4H PRN 08/13/18 [ History] Aspirin EC [Ecotrin Low Dose] 81 mg PO DAILY 08/13/18 [History] Beclomethasone Dipropionate [Qvar 80 mcg] 2 puff INHALATION RT-BID 08/13/18 [ History] Follow up Appointment(s)/Referral(s): None,Stated [Primary Care Provider] - 1-2 days Patient Instructions/Handouts: Abdominal Pain (ED) Discharge Disposition: TRANSFER TO SHORT TERM HOSP
== END 2018-08-14 18:07 | disposition short-term general hospital (02) | DRG 442 ==
LOC: EC 18:08 → 4SSUR 23:17
PROVIDERS: ADMIT Hospitalist; ATTEND Hospitalist
DX: T86.41 Liver transplant rejection (principal); B17.9 Acute viral hepatitis, unspecified; K70.31 Alcoholic cirrhosis of liver with ascites; A08.4 Viral intestinal infection, unspecified; Z86.19 Personal history of other infectious and parasitic diseases; F10.11 Alcohol abuse, in remission; F11.11 Opioid abuse, in remission; F14.11 Cocaine abuse, in remission; F12.11 Cannabis abuse, in remission; F17.210 Nicotine dependence, cigarettes, uncomplicated; I10 Essential (primary) hypertension; I73.9 Peripheral vascular disease, unspecified; K72.90 Hepatic failure, unspecified without coma; Z79.82 Long term (current) use of aspirin; Z82.49 Family history of ischemic heart disease and other diseases of the circulatory system; Z90.49 Acquired absence of other specified parts of digestive tract; Z79.899 Other long term (current) drug therapy; R74.0 Nonspecific elevation of levels of transaminase and lactic acid dehydrogenase [LDH]
CPT/HCPCS: 36415; 74018; 74177; 80053; 80074; 81003; 82150; 83690; 85025; 85610; 85730; 93005; 96361; 96374; 99285

== ENCOUNTER 2018-08-31 07:55 | Emergency (ER) | payer OTHER ==
[2018-08-31 08:00] VITALS: BP 127/82; RESP 18; TEMP 97.7
--- NOTE | 2018-08-31 08:15 | ED ---
General Adult HPI - General Chief complaint: Recheck/Abnormal Lab/Rx Stated complaint: Pic line issue Time Seen by Provider: 08/31/18 08:05 Source: patient, RN notes reviewed Mode of arrival: ambulatory Limitations: no limitations - History of Present Illness Initial comments: 53-year-old male with a past medical history of alcoholic and hepatitis C liver cirrhosis status post liver transplant in 2016 presents to the emergency department for multiple complaints. Patient states he was admitted to this hospital 3 weeks ago and subsequently transferred to [facility] due to transaminitis and concern for transportation failure. He states he was there for about 3 weeks where he unfortunately had bacteremia and was treated with IV antibiotics. Patient has a cellulitic type infection on the right arm where he says the bacteremia was from due to an IV. Patient states he was discharged home yesterday with a PICC line. He states the nurse was supposed to come to his house at 7 AM to administer his antibiotic 2 g of cefazolin every 8 hours. He states that he waited 55 minutes but the nurse never came so he called [facility] and they told him to come to the emergency department. Patient is now here for pain for his PICC line, pain on the right arm where he has a cellulitic infection from a previous IV, as well as inability to obtain his IV antibiotics. Patient requesting transfer back to [facility]. - Related Data Home Medications Medication Instructions Recorded Confirmed Magnesium Oxide [Mag-Ox] 800 mg PO BID 08/23/16 08/13/18 Mycophenolate Mofetil [Cellcept] 500 mg PO Q12H 08/23/16 08/13/18 Tacrolimus [Prograf] 2 mg PO BID 08/30/16 08/13/18 oxyCODONE-APAP 10-325MG [Percocet 1 tab PO Q8HR 05/20/18 08/13/18 10-325 mg] Albuterol Inhaler [Ventolin Hfa 2 puff INHALATION RT-Q4H PRN 08/13/18 08/13/18 Inhaler] Aspirin EC [Ecotrin Low Dose] 81 mg PO DAILY 08/13/18 08/13/18 Beclomethasone Dipropionate [Qvar 2 puff INHALATION RT-BID 08/13/18 08/13/18 80 mcg] Allergies Allergy/AdvReac Type Severity Reaction Status Date / Time No Known Allergies Allergy Verified 08/31/18 08:00 Review of Systems ROS Statement: Those systems with pertinent positive or pertinent negative responses have been documented in the HPI. ROS Other: All systems not noted in ROS Statement are negative. Past Medical History Past Medical History: GI Bleed, Liver Disease Additional Past Medical History / Comment(s): Hepatitis C, cirrhosis, appendicitis, anemia alcoholic cirrhosis/ refractory ASCITIES, past c-diff 1-7- 15, ABD HERNIA, PVD, varices, recurrent Right pleural effusion. THORACENTESIS 04/22 History of Any Multi-Drug Resistant Organisms: C-DIFF Date of last positivie culture/infection: 07/15/2014 MDRO Source:: previous admission Past Surgical History: Appendectomy Additional Past Surgical History / Comment(s): multiple paracentesis, variceal banding, EGDAdditional Medical Hx: Hepatitis C; Cirrhosis, multiple thoracentesis,TIPS procedure liver transplant, lung surgery, "shattered rt ankle after falling 3 story roof-has plate/akil,screws" Past Anesthesia/Blood Transfusion Reactions: No Reported Reaction Additional Past Anesthesia/Blood Transfusion Reaction / Comment(s): HAS HAD BLOOD TRANSFUSIONS-NO REACTION Past Psychological History: No Psychological Hx Reported Smoking Status: Current every day smoker Past Alcohol Use History: Abuse Past Drug Use History: None Reported - Past Family History Mother Family Medical History: CVA/TIA, Myocardial Infarction ([place]) Additional Family Medical History / Comment(s): currently alive and 90 years old Father Family Medical History: No Reported History Additional Family Medical History / Comment(s): from car accident General Exam - General Exam Comments Initial Comments: left arm: picc line in place, non-erythematous with patency, radial pulse 2+ cap refill < 2 seconds right arm: area of erythema noted on right forearm with mild tenderness, radial pulse 2+, cap refill <2 seconds, full ROM, sensation intact Limitations: no limitations General appearance: alert, in no apparent distress Head exam: Present: atraumatic, normocephalic, normal inspection Eye exam: Present: normal appearance, PERRL, EOMI. Absent: scleral icterus, conjunctival injection, periorbital swelling ENT exam: Present: normal exam, mucous membranes moist Neck exam: Present: normal inspection, full ROM. Absent: tenderness, meningismus, lymphadenopathy Respiratory exam: Present: normal lung sounds bilaterally. Absent: respiratory distress, wheezes, rales, rhonchi, stridor Cardiovascular Exam: Present: regular rate, normal rhythm, normal heart sounds. Absent: systolic murmur, diastolic murmur, rubs, gallop, clicks Neurological exam: Present: alert, oriented X3, CN II-XII intact Psychiatric exam: Present: normal affect, normal mood Course Vital Signs 08/31/18 08/31/18 07:57 10:00 Temperature 97.7 F Pulse Rate 96 68 Respiratory 18 18 Rate Blood Pressure 127/82 127/82 O2 Sat by Pulse 99 99 Oximetry - Reevaluation(s) Reevaluation #1: 08/31/[address] Garber at [facility] who states he did set up home antibiotics for him. He contacted case management and resident called me back with phone number to [facility]. She states that they generally have a 2 hour window to be at patient's house so patient may have left before this. However she did give me the phone number to [facility]. Does not recommend transfer down back to [facility]. [id number] Spoke with Miguelina from [facility]. She will be contacting Silvana who is supposed to be the RN going to his house and call me back with information. Reevaluation #2: 08/31/18 10:39 Spoke with Ina from [facility] and they state that they will be there by 3 PM to teach him how to do the infusions. Patient is aware that Sidra will be the nurse coming to do this. She will call him in the next hour to make sure vomiting is set up properly and location is confirmed. Medical Decision Making - Medical Decision Making 53-year-old male presents to the emergency department for inability to have antibiotics administered through PICC line at home. Patient states he was recently discharged from [facility] and is supposed to have IV medicine. He states home health was supposed to be her by 7 AM. I contacted [facility] and spoke with Dr Garber and resident who did not recommend transfer down there but did give me the number to the home health that is supposed to be taking him to infuse Ancef. I spoke with Ina from here and she states that [facility] will be there by 3 PM to teach him this. Patient aware of this. He is aware she will be calling to do make sure everything is in place. Patient requesting Percocet however when I spoke with [facility] Zhang they state he had previously said he had Percocet at home and they did not feel control prescribing this. Patient will not be prescribed Percocet from this emergency department. He will follow-up at his scheduled appointments. Disposition Clinical Impression: Medication administered, History of hepatitis C Disposition: HOME SELF-CARE Condition: Good Additional Instructions: Active home infusion company will be teaching you to infuse your medication today. Sidra will be contacting you from their company. If you have any questions you can call them at [phone]. Return to emergency department with any other problems. Is patient prescribed a controlled substance at d/c from ED?: No Referrals: Naun Sanchez MD [REFERRING] - 1-2 days Time of Disposition: 10:44
[2018-08-31] MEDS ORDERED: ceFAZolin 2,000 MG in DEXTROSE/WATER 1 50ML.BAG IVPB STA (08:23)
[2018-08-31] MEDS ORDERED: ceFAZolin IN SWFI 2 GM/20 ML SYRINGE IVP STA (08:33)
[2018-08-31 10:01] VITALS: PULSE 68
== END 2018-08-31 10:50 | disposition home or self-care (01) ==
LOC: EC 07:55
DX: Z76.89 Persons encountering health services in other specified circumstances (principal); Z86.19 Personal history of other infectious and parasitic diseases; F17.200 Nicotine dependence, unspecified, uncomplicated; Z79.51 Long term (current) use of inhaled steroids; Z79.82 Long term (current) use of aspirin; Z79.891 Long term (current) use of opiate analgesic; Z79.899 Other long term (current) drug therapy; Z95.828 Presence of other vascular implants and grafts; Z94.4 Liver transplant status; Z87.19 Personal history of other diseases of the digestive system; Z90.49 Acquired absence of other specified parts of digestive tract; Z98.890 Other specified postprocedural states
CPT/HCPCS: 36415; 87040; 99283; 96374; J0690

== ENCOUNTER 2018-10-29 18:38 | Emergency (ER) | payer OTHER ==
[2018-10-29 18:47] VITALS: RESP 18
[2018-10-29] MEDS ORDERED: PANTOPRAZOLE 40 MG/10 ML VIAL IVP STA (18:52)
[2018-10-29] MEDS ORDERED: HYDROmorphone 1 MG/ML 1 ML SYRINGE IVP STA (18:52)
[2018-10-29] MEDS ORDERED: SODIUM CHLORIDE 0.9% 1,000 ML IV STA (18:52)
--- NOTE | 2018-10-29 18:55 | ED ---
General Adult HPI - General Chief complaint: Abdominal Pain Stated complaint: Abd pain Time Seen by Provider: 10/29/18 18:41 Source: patient, EMS, RN notes reviewed Mode of arrival: EMS Limitations: no limitations - History of Present Illness Initial comments: Patient is a pleasant 53-year-old male presenting to emergency Department with complaints of abdominal discomfort. Onset of symptoms was just a day or so ago. Patient has discomfort more of the right upper abdomen. Patient does have history of previous cholecystectomy. Patient states he believes his liver is causing the pain. Patient has no history of previous pain with his liver. Porsha ent does have a distant history of alcohol use however has not drank in 7 years. No fevers. No nausea vomiting. Patient has had a single episode of diarrhea. - Related Data Home Medications Medication Instructions Recorded Confirmed Tacrolimus [Prograf] 2 mg PO BID 08/30/16 10/29/18 oxyCODONE-APAP 10-325MG [Percocet 1 tab PO Q8HR 05/20/18 10/29/18 10-325 mg] Sofosbuvir/Velpatasvir [Epclusa 1 tab PO HS 10/29/18 10/29/18 400 mg-100 mg Tablet] Allergies Allergy/AdvReac Type Severity Reaction Status Date / Time No Known Allergies Allergy Verified 10/29/18 19:11 Review of Systems ROS Statement: Those systems with pertinent positive or pertinent negative responses have been documented in the HPI. ROS Other: All systems not noted in ROS Statement are negative. Constitutional: Denies: fever Eyes: Denies: eye pain ENT: Denies: ear pain Respiratory: Denies: cough Cardiovascular: Denies: chest pain Endocrine: Denies: fatigue Gastrointestinal: Reports: as per HPI, abdominal pain Genitourinary: Denies: dysuria Musculoskeletal: Denies: back pain Skin: Denies: rash Neurological: Denies: weakness Past Medical History Past Medical History: GI Bleed, Liver Disease Additional Past Medical History / Comment(s): Hepatitis C, cirrhosis, appendicitis, anemia alcoholic cirrhosis/ refractory ASCITIES, past c-diff 1--15, ABD HERNIA, PVD, varices, recurrent Right pleural effusion. THORACENTESIS 02/15/15 History of Any Multi-Drug Resistant Organisms: C-DIFF Date of last positivie culture/infection: 07/15/2014 MDRO Source:: previous admission Past Surgical History: Appendectomy Additional Past Surgical History / Comment(s): multiple paracentesis, variceal banding, EGDAdditional Medical Hx: Hepatitis C; Cirrhosis, multiple thoracentesis,TIPS procedure liver transplant, lung surgery, "shattered rt ankle after falling 3 story roof-has plate/akil,screws" Past Anesthesia/Blood Transfusion Reactions: No Reported Reaction Additional Past Anesthesia/Blood Transfusion Reaction / Comment(s): HAS HAD BLOOD TRANSFUSIONS-NO REACTION Past Psychological History: No Psychological Hx Reported Smoking Status: Current every day smoker Past Alcohol Use History: Abuse Past Drug Use History: None Reported - Past Family History Mother Family Medical History: CVA/TIA, Myocardial Infarction ([place]) Additional Family Medical History / Comment(s): currently alive and 90 years old Father Family Medical History: No Reported History Additional Family Medical History / Comment(s): from car accident General Exam Limitations: no limitations General appearance: alert, in no apparent distress Head exam: Present: atraumatic Eye exam: Present: normal appearance, PERRL ENT exam: Present: normal oropharynx Neck exam: Present: normal inspection Respiratory exam: Present: normal lung sounds bilaterally Cardiovascular Exam: Present: regular rate, normal rhythm GI/Abdominal exam: Present: soft, tenderness (mild diffuse tenderness. Moderate tenderness right upper quadrant and epigastrium.), guarding, normal bowel sounds. Absent: distended, rebound, rigid, pulsatile mass Extremities exam: Present: normal inspection Neurological exam: Present: alert Psychiatric exam: Present: normal affect, normal mood Skin exam: Present: normal color Course Vital Signs 10/29/18 10/29/18 18:43 19:30 Temperature 98.3 F Pulse Rate 72 68 Respiratory 18 18 Rate Blood Pressure 147/88 140/84 O2 Sat by Pulse 100 99 Oximetry - Reevaluation(s) Reevaluation #1: 10/29/18 21:31 Case was discussed with denise arreaga from transfer team at [facility]. Case also discussed with Azam Morocho, surgeon on-call who does recommend transfer to the emergency department, Cat 2, for the transplant team. Medical Decision Making - Lab Data Result diagrams: 10/29/18 19:26 10/29/18 19:26 Lab Results 10/29/18 10/29/18 10/29/18 Range/Units 19:26 19:26 19:26 WBC 3.8 (3.8-10.6) k/uL RBC 5.00 (4.30-5.90) m/uL Hgb 15.3 (13.0-17.5) gm/dL Hct 46.1 (39.0-53.0) % MCV 92.2 (80.0-100.0) fL MCH 30.6 (25.0-35.0) pg MCHC 33.2 (31.0-37.0) g/dL RDW 13.7 (11.5-15.5) % Plt Count 128 L (150-450) k/uL Neutrophils % 62 % Lymphocytes % 25 % Monocytes % 6 % Eosinophils % 4 % Basophils % 0 % Neutrophils # 2.3 (1.3-7.7) k/uL Lymphocytes # 0.9 L (1.0-4.8) k/uL Monocytes # 0.2 (0-1.0) k/uL Eosinophils # 0.1 (0-0.7) k/uL Basophils # 0.0 (0-0.2) k/uL PT 10.1 (9.0-12.0) sec INR 0.9 (<1.2) APTT 28.2 (22.0-30.0) sec Sodium 140 (137-145) mmol/L Potassium 4.1 (3.5-5.1) mmol/L Chloride 107 (98-107) mmol/L Carbon Dioxide 23 (22-30) mmol/L Anion Gap 10 mmol/L BUN 16 (9-20) mg/dL Creatinine 0.62 L (0.66-1.25) mg/dL Est GFR (CKD-EPI)AfAm >90 (>60 ml/min/1.73 sqM) Est GFR (CKD-EPI)NonAf >90 (>60 ml/min/1.73 sqM) Glucose 85 (74-99) mg/dL Calcium 9.7 (8.4-10.2) mg/dL Total Bilirubin 3.5 H (0.2-1.3) mg/dL AST 328 H (17-59) U/L ALT 306 H (21-72) U/L Alkaline Phosphatase 678 H (38-126) U/L Total Protein 7.7 (6.3-8.2) g/dL Albumin 4.0 (3.5-5.0) g/dL Amylase 93 (30-110) U/L Lipase 370 H (23-300) U/L Urine Color Urine Appearance (Clear) Urine pH (5.0-8.0) Ur Specific [place] (1.001-1.035) Urine Protein (Negative) Urine Glucose (UA) (Negative) Urine Ketones (Negative) Urine Blood (Negative) Urine Nitrite (Negative) Urine Bilirubin (Negative) Urine Urobilinogen (<2.0) mg/dL Ur Leukocyte Esterase (Negative) 10/29/18 Range/Units 20:45 WBC (3.8-10.6) k/uL RBC (4.30-5.90) m/uL Hgb (13.0-17.5) gm/dL Hct (39.0-53.0) % MCV (80.0-100.0) fL MCH (25.0-35.0) pg MCHC (31.0-37.0) g/dL RDW (11.5-15.5) % Plt Count (150-450) k/uL Neutrophils % % Lymphocytes % % Monocytes % % Eosinophils % % Basophils % % Neutrophils # (1.3-7.7) k/uL Lymphocytes # (1.0-4.8) k/uL Monocytes # (0-1.0) k/uL Eosinophils # (0-0.7) k/uL Basophils # (0-0.2) k/uL PT (9.0-12.0) sec INR (<1.2) APTT (22.0-30.0) sec Sodium (137-145) mmol/L Potassium (3.5-5.1) mmol/L Chloride (98-107) mmol/L Carbon Dioxide (22-30) mmol/L Anion Gap mmol/L BUN (9-20) mg/dL Creatinine (0.66-1.25) mg/dL Est GFR (CKD-EPI)AfAm (>60 ml/min/1.73 sqM) Est GFR (CKD-EPI)NonAf (>60 ml/min/1.73 sqM) Glucose (74-99) mg/dL Calcium (8.4-10.2) mg/dL Total Bilirubin (0.2-1.3) mg/dL AST (17-59) U/L ALT (21-72) U/L Alkaline Phosphatase (38-126) U/L Total Protein (6.3-8.2) g/dL Albumin (3.5-5.0) g/dL Amylase (30-110) U/L Lipase (23-300) U/L Urine Color Dark Yellow Urine Appearance Clear (Clear) Urine pH 6.5 (5.0-8.0) Ur Specific [place] 1.043 H (1.001-1.035) Urine Protein Negative (Negative) Urine Glucose (UA) Negative (Negative) Urine Ketones Negative (Negative) Urine Blood Negative (Negative) Urine Nitrite Negative (Negative) Urine Bilirubin 1+ H (Negative) Urine Urobilinogen 4.0 (<2.0) mg/dL Ur Leukocyte Esterase Negative (Negative) Disposition Clinical Impression: Acute hepatitis, History of liver transplant, Abdominal pain Disposition: OTHER INSTITUTION NOT DEFINED Is patient prescribed a controlled substance at d/c from ED?: No Referrals: Nonstaff,Physician [Primary Care Provider] - 1-2 days Time of Disposition: 21:33 - Out of Hospital Transfer - Req. Specs Out of Hospital Transfer - Requested Specifics: Other Emergency Center
[2018-10-29 19:30] LABS: Basophils % (A) 0 %; Eosinophils # (A) 0.1 k/uL (0-0.7); Eosinophils % (A) 4 %; HCT 46.1 % (39.0-53.0); HGB 15.3 gm/dL (13.0-17.5); Lymphocytes # (A) 0.9 k/uL (1.0-4.8); Lymphocytes % (A) 25 %; MCH 30.6 pg (25.0-35.0); MCHC 33.2 g/dL (31.0-37.0); MCV 92.2 fL (80.0-100.0); Mean Platelet Volume 6.9; Monocytes # (A) 0.2 k/uL (0-1.0); Monocytes % (A) 6 %; Neutrophils # (A) 2.3 k/uL (1.3-7.7); Neutrophils % (A) 62 %; Platelet Count 128 k/uL (150-450); RDW 13.7 % (11.5-15.5); WBC 3.8 k/uL (3.8-10.6)
[2018-10-29 19:40] LABS: ALT 306 U/L (21-72); AST 328 U/L (17-59); Alkaline Phosphatase 678 U/L (38-126); Amylase 93 U/L (30-110); Anion Gap 10 mmol/L; Blood Urea Nitrogen 16 mg/dL (9-20); Calcium 9.7 mg/dL (8.4-10.2); Carbon Dioxide 23 mmol/L (22-30); Chloride 107 mmol/L (98-107); Glucose 85 mg/dL (74-99); Lipase 370 U/L (23-300); Potassium 4.1 mmol/L (3.5-5.1); Sodium 140 mmol/L (137-145); Total Bilirubin 3.5 mg/dL (0.2-1.3); Total Protein 7.7 g/dL (6.3-8.2)
[2018-10-29 19:51] LABS: INR 0.9 (<1.2)
[2018-10-29 19:52] LABS: Partial Thromboplastin Time 28.2 sec (22.0-30.0); Prothrombin Time 10.1 sec (9.0-12.0)
[2018-10-29 20:54] LABS: Appearance,Urine Clear (Clear); Bilirubin,Urine 1+ (Negative); Blood,Urine Negative (Negative); Color,Urine Dark Yellow; Glucose,Urine (UA) Negative (Negative); Ketones,Urine Negative (Negative); Leukocyte Esterase,Urine Negative (Negative); Nitrite,Urine Negative (Negative); PH, Urine 6.5 (5.0-8.0); Protein,Urine Negative (Negative); Specific Gravity,Urine 1.043 (1.001-1.035)
--- NOTE | 2018-10-29 21:03 | CT ---
EXAMINATION TYPE: CT abdomen pelvis w con DATE OF EXAM: 10/29/2018 COMPARISON: CT 08/13/2018 HISTORY: right sided abdominal pain, hx of liver disease CT DLP: 573.3 mGycm Automated exposure control for dose reduction was used. TECHNIQUE: Helical acquisition of images was performed from the lung bases through the pelvis. CONTRAST: Performed without Oral Contrast and with IV Contrast, patient injected with 100 mL of Isovu e 300. FINDINGS: LUNG BASES: No acute findings, but coronary calcifications noted. LIVER/GB: No significant hepatic abnormality is appreciated. However, the caliber of the portal venous system is prominent, which can correlate with portal hypert ension. PANCREAS: No significant abnormality is seen. SPLEEN: Moderate-marked splenomegaly is redemonstrated, measuring approximately 19 x 13 x 6 cm. This appears similar to the prior study, and is associated with the dilated portal venous system. ADRENALS: No significant abnormality is seen. KIDNEYS: No significant abnormality is seen. FREE AIR: No free air is visualized. RETROPERITONEAL ADENOPATHY: None visualized REPRODUCTIVE ORGANS: No significant abnormality is seen URINARY BLADDER: No significant abnormality is seen. PELVIC ADENOPATHY: None visualized. OSSEOUS STRUCTURES: No significant abnormality is seen. BOWEL: No significant abnormality is seen. VASCULAR: There are mild/moderate nonaneurysmal atherosclerotic changes throughout the visualized ar terial anatomy, including the coronary arteries. The caliber of the portal venous system is enlarged, stable appearance. OTHER: The periumbilical 4 cm omental herniation is redemonstrated similar in appearance. There are n o bowel loops within. IMPRESSION: 1. NO DEFINITE ACUTE PROCESS. 2. REDEMONSTRATED MODERATE MARKED SPLENOMEGALY WITH EVIDENCE OF PORTAL VENOUS HYPERTENSION.
[2018-10-29] MEDS ORDERED: MORPHINE SULFATE 4 MG/ML SYRINGE IV STA (21:32)
[2018-10-29 22:24] VITALS: BP 140/91; PULSE 63; TEMP 98
[2018-10-29] MEDS ORDERED: LORazepam 2 MG/ML INJ IV STA (22:46)
== END 2018-10-29 22:54 | disposition short-term general hospital (02) ==
LOC: EC 18:38
DX: B17.9 Acute viral hepatitis, unspecified (principal); F17.200 Nicotine dependence, unspecified, uncomplicated; Z87.19 Personal history of other diseases of the digestive system; Z94.4 Liver transplant status; Z90.49 Acquired absence of other specified parts of digestive tract; Z79.891 Long term (current) use of opiate analgesic; Z79.899 Other long term (current) drug therapy
CPT/HCPCS: 99285; 96374; 96375 ×3; 96361 ×3; 36415; 80053; 82150; 83690; 85025; 85610; 85730; 81003; 74177; J2060; J2270; J1170; C9113; Q9967

== ENCOUNTER 2018-11-13 19:46 | Emergency (ER) | payer OTHER ==
[2018-11-13 20:20] VITALS: TEMP 98.4
[2018-11-13] MEDS ORDERED: HYDROmorphone 0.5 MG/0.5 ML SYRINGE IVP STA (20:26)
[2018-11-13] MEDS ORDERED: ONDANSETRON 4 MG/2 ML VIAL IVP STA (20:26)
[2018-11-13] MEDS ORDERED: SODIUM CHLORIDE 0.9% 500 ML 500 ML IV STA (20:26)
--- NOTE | 2018-11-13 20:32 | ED ---
General Adult HPI - General Chief complaint: Abdominal Pain Stated complaint: Abd Pain Time Seen by Provider: 11/13/18 20:20 Source: patient, RN notes reviewed Mode of arrival: ambulatory - History of Present Illness Initial comments: 53-year-old male with a past medical history of liver transplant in 2016 after liver failure from hepatitis C presents to the emergency department for right upper quadrant pain. States that he has had right upper quadrant pain on and off for about 5 months. States that he has been in and out of [facility] for this. States that they believe he is rejecting his liver at this time. States he was discharged home 10 days ago and has been doing just fine until yesterday when he started having right upper quadrant pain again. Patient st ates he noticed he was turning yellow. Patient is concerned there is something wrong with his liver at this time.Patient has no other complaints at this time including shortness of breath, chest pain, abdominal pain, nausea or vomiting, headache, or visual changes. - Related Data Home Medications Medication Instructions Recorded Confirmed Tacrolimus [Prograf] 2 mg PO BID 08/30/16 11/13/18 oxyCODONE-APAP 10-325MG [Percocet 1 tab PO BID 05/20/18 11/13/18 10-325 mg] Sofosbuvir/Velpatasvir [Epclusa 1 tab PO HS 10/29/18 11/13/18 400 mg-100 mg Tablet] Mycophenolate Mofetil [Cellcept] 1,500 mg PO BID 11/13/18 11/13/18 Allergies Allergy/AdvReac Type Severity Reaction Status Date / Time No Known Allergies Allergy Verified 11/13/18 20:32 Review of Systems ROS Statement: Those systems with pertinent positive or pertinent negative responses have been documented in the HPI. ROS Other: All systems not noted in ROS Statement are negative. Past Medical History Past Medical History: GI Bleed, Liver Disease Additional Past Medical History / Comment(s): Hepatitis C, cirrhosis, destiney endicitis, anemia alcoholic cirrhosis/ refractory ASCITIES, past c-diff 1--15, ABD HERNIA, PVD, varices, recurrent Right pleural effusion. THORACENTESIS 02/15/15 History of Any Multi-Drug Resistant Organisms: C-DIFF Date of last positivie culture/infection: 07/15/2014 MDRO Source:: previous admission Past Surgical History: Appendectomy Additional Past Surgical History / Comment(s): multiple paracentesis, variceal banding, EGDAdditional Medical Hx: Hepatitis C; Cirrhosis, multiple thoracentesis,TIPS procedure liver transplant, lung surgery, "shattered rt ankle after falling 3 story roof-has plate/akil,screws" Past Anesthesia/Blood Transfusion Reactions: No Reported Reaction Additional Past Anesthesia/Blood Transfusion Reaction / Comment(s): HAS HAD BLOOD TRANSFUSIONS-NO REACTION Past Psychological History: No Psychological Hx Reported Smoking Status: Current every day smoker Past Alcohol Use History: None Reported Past Drug Use History: None Reported - Past Family History Mother Family Medical History: CVA/TIA, Myocardial Infarction ([place]) Additional Family Medical History / Comment(s): currently alive and 90 years old Father Family Medical History: No Reported History Additional Family Medical History / Comment(s): from car accident General Exam General appearance: alert, in no apparent distress Head exam: Present: atraumatic, normocephalic, normal inspection Eye exam: Present: normal appearance, PERRL, EOMI. Absent: scleral icterus, conjunctival injection, periorbital swelling ENT exam: Present: normal exam, mucous membranes moist Neck exam: Present: normal inspection, full ROM. Absent: tenderness, meningism us, lymphadenopathy Respiratory exam: Present: normal lung sounds bilaterally. Absent: respiratory distress, wheezes, rales, rhonchi, stridor Cardiovascular Exam: Present: regular rate, normal rhythm, normal heart sounds. Absent: systolic murmur, diastolic murmur, rubs, gallop, clicks GI/Abdominal exam: Present: soft, tenderness (Tenderness noted in the right upper quadrant), normal bowel sounds. Absent: distended, guarding, rebound, rigid Neurological exam: Present: alert, oriented X3, CN II-XII intact Psychiatric exam: Present: normal affect, normal mood Course Vital Signs 11/13/18 11/13/18 20:17 21:53 Temperature 98.4 F Pulse Rate 71 63 Respiratory 18 18 Rate Blood Pressure 146/95 138/93 O2 Sat by Pulse 99 96 Oximetry - Reevaluation(s) Reevaluation #1: 11/13/18 20:33 CT abdomen and pelvis with contrast from 10/29/2018 was reviewed which showed no definite acute process, marked splenomegaly with evidence of portal venous hypertension which was redemonstrated. Medical Decision Making - Medical Decision Making 53-year-old male with a history of liver transplant in 2016 presents to the emergency department for right upper quadrant pain and jaundice. Patient states he has been having difficulty for the past 5 months with his liver and specialists are concerned about rejection. Patient states his transplant team is through [facility], states he was discharged about 10 days ago. On exam patient does appear jaundiced with scleral icterus. CBC is unremarkable. CMP does show a total bilirubin of 5.4 which is elevated compared to patient's last levels of 3.5-4.5. AST 213, ALT 275, ALP 716. Patient currently on tacrolimus, Epclusa, CellCept. At this time patient will be transferred to [facility] where his transplant team is located. Dr. Shipman did accept this transfer. - Lab Data Result diagrams: 11/13/18 20:30 11/13/18 20:30 Lab Results 11/13/18 11/13/18 11/13/18 Range/Units 20:30 20:30 20:30 WBC 5.5 (3.8-10.6) k/uL RBC 5.16 (4.30-5.90) m/uL Hgb 15.5 (13.0-17.5) gm/dL Hct 46.4 (39.0-53.0) % MCV 89.9 (80.0-100.0) fL MCH 30.1 (25.0-35.0) pg MCHC 33.5 (31.0-37.0) g/dL RDW 13.6 (11.5-15.5) % Plt Count 152 (150-450) k/uL Neutrophils % 74 % Lymphocytes % 16 % Monocytes % 5 % Eosinophils % 2 % Basophils % 0 % Neutrophils # 4.0 (1.3-7.7) k/uL Lymphocytes # 0.9 L (1.0-4.8) k/uL Monocytes # 0.3 (0-1.0) k/uL Eosinophils # 0.1 (0-0.7) k/uL Basophils # 0.0 (0-0.2) k/uL PT 10.0 (9.0-12.0) sec INR 0.9 (<1.2) APTT 27.0 (22.0-30.0) sec Sodium 138 (137-145) mmol/L Potassium 4.1 (3.5-5.1) mmol/L Chloride 104 (98-107) mmol/L Carbon Dioxide 25 (22-30) mmol/L Anion Gap 9 mmol/L BUN 14 (9-20) mg/dL Creatinine 0.65 L (0.66-1.25) mg/dL Est GFR (CKD-EPI)AfAm >90 (>60 ml/min/1.73 sqM) Est GFR (CKD-EPI)NonAf >90 (>60 ml/min/1.73 sqM) Glucose 100 H (74-99) mg/dL Calcium 10.1 (8.4-10.2) mg/dL Total Bilirubin 5.4 H (0.2-1.3) mg/dL AST 213 H (17-59) U/L ALT 275 H (21-72) U/L Alkaline Phosphatase 716 H (38-126) U/L Total Protein 8.0 (6.3-8.2) g/dL Albumin 4.1 (3.5-5.0) g/dL Amylase 66 (30-110) U/L Lipase 144 (23-300) U/L Disposition Clinical Impression: Transaminitis, History of liver transplant Disposition: OTHER INSTITUTION NOT DEFINED Condition: Good Is patient prescribed a controlled substance at d/c from ED?: No Referrals: Davi Matute DO [Primary Care Provider] - 1-2 days Time of Disposition: 21:57 - Out of Hospital Transfer - Req. Specs Out of Hospital Transfer - Requested Specifics: Other Non-Acute ([facility])
[2018-11-13 20:58] LABS: Basophils % (A) 0 %; Eosinophils # (A) 0.1 k/uL (0-0.7); Eosinophils % (A) 2 %; HCT 46.4 % (39.0-53.0); HGB 15.5 gm/dL (13.0-17.5); Lymphocytes # (A) 0.9 k/uL (1.0-4.8); Lymphocytes % (A) 16 %; MCH 30.1 pg (25.0-35.0); MCHC 33.5 g/dL (31.0-37.0); MCV 89.9 fL (80.0-100.0); Mean Platelet Volume 6.7; Monocytes # (A) 0.3 k/uL (0-1.0); Monocytes % (A) 5 %; Neutrophils % (A) 74 %; Platelet Count 152 k/uL (150-450); RBC 5.16 m/uL (4.30-5.90); RDW 13.6 % (11.5-15.5); WBC 5.5 k/uL (3.8-10.6)
[2018-11-13 21:05] LABS: INR 0.9 (<1.2)
[2018-11-13 21:15] LABS: ALT 275 U/L (21-72); AST 213 U/L (17-59); Albumin 4.1 g/dL (3.5-5.0); Alkaline Phosphatase 716 U/L (38-126); Amylase 66 U/L (30-110); Anion Gap 9 mmol/L; Blood Urea Nitrogen 14 mg/dL (9-20); Calcium 10.1 mg/dL (8.4-10.2); Carbon Dioxide 25 mmol/L (22-30); Chloride 104 mmol/L (98-107); Glucose 100 mg/dL (74-99); Lipase 144 U/L (23-300); Potassium 4.1 mmol/L (3.5-5.1); Sodium 138 mmol/L (137-145); Total Bilirubin 5.4 mg/dL (0.2-1.3)
[2018-11-13] MEDS ORDERED: MORPHINE SULFATE 4 MG/ML SYRINGE IVP STA (21:44)
[2018-11-13] MEDS ORDERED: LORazepam 2 MG/ML INJ IV STA (21:57)
[2018-11-13 23:22] VITALS: BP 129/90; PULSE 66; RESP 16
== END 2018-11-13 23:30 | disposition other institution (70) ==
LOC: EC 19:46
DX: R74.0 Nonspecific elevation of levels of transaminase and lactic acid dehydrogenase [LDH] (principal); R10.11 Right upper quadrant pain; F17.200 Nicotine dependence, unspecified, uncomplicated; Z86.19 Personal history of other infectious and parasitic diseases; Z79.891 Long term (current) use of opiate analgesic; Z79.899 Other long term (current) drug therapy; Z90.49 Acquired absence of other specified parts of digestive tract; Z94.4 Liver transplant status
CPT/HCPCS: 36415; 80053; 82150; 83690; 85025; 85610; 85730; 99285; 96374; 96375 ×3; 96361; J2060; J2270; J2405; J1170

== ENCOUNTER 2018-11-19 23:02 | Emergency (ER) | payer OTHER ==
[2018-11-20] MEDS ORDERED: SODIUM CHLORIDE 0.9% 1,000 ML BAG ONE (00:05)
[2018-11-20] MEDS ORDERED: HYDROmorphone 1 MG/ML 1 ML SYRINGE ONE (00:05)
[2018-11-20] MEDS ORDERED: FAMOTIDINE 20 MG/2 ML VIAL ONE (00:05)
[2018-11-20] MEDS ORDERED: hydrOXYzine HCL 25 MG TAB ONE (00:05)
[2018-11-20] MEDS ORDERED: diphenhydrAMINE 50 MG/ML 1 ML VIAL ONE (00:05)
[2018-11-20] MEDS ORDERED: fentaNYL (PF) 50 MCG/ML 2 ML AMP ONE (00:05)
[2018-11-20] MEDS ORDERED: methylPREDNISolone SOD SUCCI 125 MG/2 ML VIAL ONE (00:05)
[2018-11-20 06:37] LABS: Basophils % (A) 0 %; Eosinophils # (A) 0.1 k/uL (0-0.7); Eosinophils % (A) 2 %; HCT 45.6 % (39.0-53.0); HGB 14.9 gm/dL (13.0-17.5); Lymphocytes # (A) 0.3 k/uL (1.0-4.8); Lymphocytes % (A) 9 %; MCH 29.4 pg (25.0-35.0); MCHC 32.8 g/dL (31.0-37.0); MCV 89.5 fL (80.0-100.0); Mean Platelet Volume 7.2; Monocytes # (A) 0.1 k/uL (0-1.0); Monocytes % (A) 2 %; Neutrophils # (A) 2.8 k/uL (1.3-7.7); Neutrophils % (A) 87 %; Platelet Count 134 k/uL (150-450); RBC 5.09 m/uL (4.30-5.90); RDW 13.6 % (11.5-15.5); WBC 3.2 k/uL (3.8-10.6)
[2018-11-20 07:05] LABS: Appearance,Urine Clear (Clear); Bilirubin,Urine 1+ (Negative); Blood,Urine Negative (Negative); Color,Urine Yellow; Glucose,Urine (UA) 4+ (Negative); Ketones,Urine Negative (Negative); Leukocyte Esterase,Urine Negative (Negative); Mucus,Urine Rare /hpf; Nitrite,Urine Negative (Negative); PH, Urine 6.5 (5.0-8.0); Protein,Urine Negative (Negative); RBC,Urine 1 /hpf (0-5); Specific Gravity,Urine 1.032 (1.001-1.035); WBC,Urine <1 /hpf (0-5)
[2018-11-20 07:28] LABS: ALT 114 U/L (21-72); AST 58 U/L (17-59); Alkaline Phosphatase 388 U/L (38-126); Amylase 60 U/L (30-110); Anion Gap 10 mmol/L; Blood Urea Nitrogen 30 mg/dL (9-20); Calcium 9.9 mg/dL (8.4-10.2); Carbon Dioxide 28 mmol/L (22-30); Chloride 102 mmol/L (98-107); Creatine Kinase <20 U/L (55-170); GGT 573 U/L (15-73); Glucose 297 mg/dL (74-99); Lipase 120 U/L (23-300); Potassium 4.6 mmol/L (3.5-5.1); Sodium 140 mmol/L (137-145); Total Bilirubin 3.9 mg/dL (0.2-1.3); Total Protein 7.5 g/dL (6.3-8.2)
--- NOTE | 2018-11-29 02:26 | CDI ---
Documentation Clarification OP Dear Dr. Wilner Messina Please provide clinical impression. Thank you, Gallo Gill Remote Pilot Operator If you have any questions, please contact Dynamometer Tester at [phone] [facility]
== END 2018-11-20 02:52 ==
LOC: EC 23:02
DX: T78.40XA Allergy, unspecified, initial encounter (principal); G89.29 Other chronic pain; R45.1 Restlessness and agitation; F17.200 Nicotine dependence, unspecified, uncomplicated; Z94.4 Liver transplant status; Z79.52 Long term (current) use of systemic steroids; Z79.899 Other long term (current) drug therapy
CPT/HCPCS: 36415; 80053; 82150; 82550; 82977; 83690; 84484; 85025; 81003; 99284; 96374; 96375 ×4; 96361 ×3; J1200; J2930; J3010; J1170

== ENCOUNTER 2018-12-05 19:56 | Emergency (ER) | payer OTHER ==
[2018-12-05] MEDS ORDERED: MORPHINE SULFATE 4 MG/ML SYRINGE IV STA ×2 (21:34→23:09)
--- NOTE | 2018-12-05 21:39 | ED ---
Abdominal Pain HPI - General Chief Complaint: Abdominal Pain Stated Complaint: high liver enzymes Time Seen by Provider: 12/05/18 21:15 Source: patient Mode of arrival: ambulatory Limitations: no limitations - History of Present Illness Initial Comments: This patient is a 53-year-old man status post liver transplant, who presents with right upper quadrant abdominal pain. He states that this started approximate 6 PM, and seemed to wake him from sleep area he describes it as a constant, sharp pain. He has not noted worsening or relieving factors. He denies any associated symptoms. The patient states that he had a similar episode to this in August and at that time they noted an elevation of his liver enzymes and he was told that he was having some rejection. Patient states he has maintained all of his medications, not missing doses. The patient states that he was to have an appointment with his transplant team today but his ride to the clinic failed to show up. MD Complaint: abdominal pain Onset/Timin -: hour(s) Location: RUQ Radiation: none Migration to: no migration Severity: moderate Quality: stabbing Consistency: constant Improves With: nothing Worsens With: nothing Associated Symptoms: denies other symptoms - Related Data Home Medications Medication Instructions Recorded Confirmed Tacrolimus [Prograf] 2 mg PO HS 08/30/16 12/05/18 Sofosbuvir/Velpatasvir [Epclusa 1 tab PO QAM 10/29/18 12/05/18 400 mg-100 mg Tablet] Ranitidine HCl [Zantac] 150 mg PO BID 11/20/18 12/05/18 Ursodiol [Actigall] 300 mg PO BID 11/20/18 12/05/18 predniSONE 20 mg PO DAILY 11/20/18 12/05/18 Mycophenolate Mofetil [Cellcept] 1,500 mg PO BID 12/05/18 12/05/18 Naproxen 500 mg PO BID PRN 12/05/18 12/05/18 oxyCODONE-APAP 10-325MG [Percocet 1 tab PO Q4H 12/05/18 12/05/18 10-325 mg] Allergies Allergy/AdvReac Type Severity Reaction Status Date / Time No Known Allergies Allergy Verified 12/05/18 21:31 Review of Systems ROS Statement: Those systems with pertinent positive or pertinent negative responses have been documented in the HPI. ROS Other: All systems not noted in ROS Statement are negative. Constitutional: Denies: fever, chills Respiratory: Denies: cough, dyspnea Cardiovascular: Denies: chest pain, palpitations, orthopnea, edema, syncope Endocrine: Reports: fatigue Gastrointestinal: Reports: abdominal pain. Denies: nausea, vomiting, diarrhea, constipation, melena, hematochezia Genitourinary: Denies: dysuria, hematuria Skin: Denies: rash Neurological: Denies: headache Hematological/Lymphatic: Denies: easy bleeding Past Medical History Past Medical History: GI Bleed, Liver Disease Additional Past Medical History / Comment(s): Hepatitis C, cirrhosis, appendicitis, anemia alcoholic cirrhosis/ refractory ASCITIES, past c-diff 07-15-14, ABD HERNIA, PVD, varices, recurrent Right pleural effusion. THORACENTESIS 02/15/15 History of Any Multi-Drug Resistant Organisms: C-DIFF Date of last positivie culture/infection: 07/15/2014 MDRO Source:: previous admission Past Surgical History: Appendectomy Additional Past Surgical History / Comment(s): multiple paracentesis, variceal banding, EGDAdditional Medical Hx: Hepatitis C; Cirrhosis, multiple thoracen tesis,TIPS procedure liver transplant, lung surgery, "shattered rt ankle after falling 3 story roof-has plate/akil,screws" Past Anesthesia/Blood Transfusion Reactions: No Reported Reaction Additional Past Anesthesia/Blood Transfusion Reaction / Comment(s): HAS HAD BLOOD TRANSFUSIONS-NO REACTION Past Psychological History: No Psychological Hx Reported Smoking Status: Current every day smoker Past Alcohol Use History: None Reported Past Drug Use History: None Reported - Past Family History Mother Family Medical History: CVA/TIA, Myocardial Infarction ([place]) Additional Family Medical History / Comment(s): currently alive and 90 years old Father Family Medical History: No Reported History Additional Family Medical History / Comment(s): from car accident General Exam Limitations: no limitations General appearance: alert, in no apparent distress Head exam: Present: atraumatic, normocephalic Eye exam: Present: normal appearance. Absent: scleral icterus, conjunctival injection ENT exam: Present: normal oropharynx Neck exam: Present: normal inspection Respiratory exam: Present: normal lung sounds bilaterally. Absent: respiratory distress, wheezes, rales, rhonchi, stridor Cardiovascular Exam: Present: regular rate, normal rhythm, normal heart sounds. Absent: systolic murmur, diastolic murmur, rubs, gallop GI/Abdominal exam: Present: soft, tenderness (Mild right upper quadrant tenderness without rebound or guarding), normal bowel sounds, hernia (There is a reducible umbilical hernia which is nontender). Absent: distended, guarding, rebound, rigid, organomegaly, mass, pulsatile mass Extremities exam: Present: normal inspection, normal capillary refill. Absent: pedal edema, calf tenderness Back exam: Present: normal inspection. Absent: CVA tenderness (R), CVA tenderness (L) Neurological exam: Present: alert Skin exam: Present: warm, dry, intact, normal color. Absent: rash Course Vital Signs 12/05/18 20:54 Temperature 97.8 F Pulse Rate 78 Respiratory 20 Rate Blood Pressure 126/80 O2 Sat by Pulse 100 Oximetry Medical Decision Making - Medical Decision Making Patient's 53-year-old man with history of liver transplant, found to have elevated transaminases levels. I attempted to contact the liver transplant fellow at [phone], and after discussion with the poultice machine operator they transferred me to the transfer center and I spoke with Dr. Urbano, who agreed to accept the patient for transfer to be seen by the liver transplant team. - Lab Data Result diagrams: 12/05/18 22:05 12/05/18 22:05 Lab Results 12/05/18 12/05/18 12/05/18 Range/Units 22:05 22:05 22:05 WBC 4.3 (3.8-10.6) k/uL RBC 5.31 (4.30-5.90) m/uL Hgb 15.6 (13.0-17.5) gm/dL Hct 47.3 (39.0-53.0) % MCV 89.1 (80.0-100.0) fL MCH 29.3 (25.0-35.0) pg MCHC 32.9 (31.0-37.0) g/dL RDW 15.5 (11.5-15.5) % Plt Count 187 (150-450) k/uL Neutrophils % 61 % Lymphocytes % 30 % Monocytes % 5 % Eosinophils % 2 % Basophils % 0 % Neutrophils # 2.6 (1.3-7.7) k/uL Lymphocytes # 1.3 (1.0-4.8) k/uL Monocytes # 0.2 (0-1.0) k/uL Eosinophils # 0.1 (0-0.7) k/uL Basophils # 0.0 (0-0.2) k/uL PT 9.5 (9.0-12.0) sec INR 0.9 (<1.2) APTT 24.6 (22.0-30.0) sec Sodium 141 (137-145) mmol/L Potassium 4.1 (3.5-5.1) mmol/L Chloride 104 (98-107) mmol/L Carbon Dioxide 30 (22-30) mmol/L Anion Gap 7 mmol/L BUN 29 H (9-20) mg/dL Creatinine 1.08 (0.66-1.25) mg/dL Est GFR (CKD-EPI)AfAm 89 (>60 ml/min/1.73 sqM) Est GFR (CKD-EPI)NonAf 77 (>60 ml/min/1.73 sqM) Glucose 79 (74-99) mg/dL Plasma Lactic Acid Devin (0.7-2.0) mmol/L Calcium 9.8 (8.4-10.2) mg/dL Total Bilirubin 3.1 H (0.2-1.3) mg/dL AST 118 H (17-59) U/L ALT 146 H (21-72) U/L Alkaline Phosphatase 332 H (38-126) U/L Total Protein 7.4 (6.3-8.2) g/dL Albumin 4.1 (3.5-5.0) g/dL Amylase 155 H (30-110) U/L Lipase 711 H (23-300) U/L Urine Color Urine Appearance (Clear) Urine pH (5.0-8.0) Ur Specific [place] (1.001-1.035) Urine Protein (Negative) Urine Glucose (UA) (Negative) Urine Ketones (Negative) Urine Blood (Negative) Urine Nitrite (Negative) Urine Bilirubin (Negative) Urine Urobilinogen (<2.0) mg/dL Ur Leukocyte Esterase (Negative) 12/05/18 12/05/18 Range/Units 22:05 22:15 WBC (3.8-10.6) k/uL RBC (4.30-5.90) m/uL Hgb (13.0-17.5) gm/dL Hct (39.0-53.0) % MCV (80.0-100.0) fL MCH (25.0-35.0) pg MCHC (31.0-37.0) g/dL RDW (11.5-15.5) % Plt Count (150-450) k/uL Neutrophils % % Lymphocytes % % Monocytes % % Eosinophils % % Basophils % % Neutrophils # (1.3-7.7) k/uL Lymphocytes # (1.0-4.8) k/uL Monocytes # (0-1.0) k/uL Eosinophils # (0-0.7) k/uL Basophils # (0-0.2) k/uL PT (9.0-12.0) sec INR (<1.2) APTT (22.0-30.0) sec Sodium (137-145) mmol/L Potassium (3.5-5.1) mmol/L Chloride (98-107) mmol/L Carbon Dioxide (22-30) mmol/L Anion Gap mmol/L BUN (9-20) mg/dL Creatinine (0.66-1.25) mg/dL Est GFR (CKD-EPI)AfAm (>60 ml/min/1.73 sqM) Est GFR (CKD-EPI)NonAf (>60 ml/min/1.73 sqM) Glucose (74-99) mg/dL Plasma Lactic Acid Devin 1.1 (0.7-2.0) mmol/L Calcium (8.4-10.2) mg/dL Total Bilirubin (0.2-1.3) mg/dL AST (17-59) U/L ALT (21-72) U/L Alkaline Phosphatase (38-126) U/L Total Protein (6.3-8.2) g/dL Albumin (3.5-5.0) g/dL Amylase (30-110) U/L Lipase (23-300) U/L Urine Color Yellow Urine Appearance Clear (Clear) Urine pH 6.5 (5.0-8.0) Ur Specific [place] 1.026 (1.001-1.035) Urine Protein Negative (Negative) Urine Glucose (UA) Negative (Negative) Urine Ketones Negative (Negative) Urine Blood Negative (Negative) Urine Nitrite Negative (Negative) Urine Bilirubin 1+ H (Negative) Urine Urobilinogen 8.0 (<2.0) mg/dL Ur Leukocyte Esterase Negative (Negative) Disposition Clinical Impression: Transaminitis, History of liver transplant, History of hepatitis C Disposition: OTHER INSTITUTION NOT DEFINED Condition: Serious Is patient prescribed a controlled substance at d/c from ED?: No Referrals: Davi Matute DO [Primary Care Provider] - 1-2 days
[2018-12-05 22:31] LABS: Appearance,Urine Clear (Clear); Bilirubin,Urine 1+ (Negative); Blood,Urine Negative (Negative); Color,Urine Yellow; Glucose,Urine (UA) Negative (Negative); Ketones,Urine Negative (Negative); Leukocyte Esterase,Urine Negative (Negative); Nitrite,Urine Negative (Negative); PH, Urine 6.5 (5.0-8.0); Protein,Urine Negative (Negative); Specific Gravity,Urine 1.026 (1.001-1.035)
[2018-12-05 22:31] LABS: Basophils % (A) 0 %; Eosinophils # (A) 0.1 k/uL (0-0.7); Eosinophils % (A) 2 %; HCT 47.3 % (39.0-53.0); HGB 15.6 gm/dL (13.0-17.5); Lymphocytes # (A) 1.3 k/uL (1.0-4.8); Lymphocytes % (A) 30 %; MCH 29.3 pg (25.0-35.0); MCHC 32.9 g/dL (31.0-37.0); MCV 89.1 fL (80.0-100.0); Mean Platelet Volume 6.6; Monocytes # (A) 0.2 k/uL (0-1.0); Monocytes % (A) 5 %; Neutrophils # (A) 2.6 k/uL (1.3-7.7); Neutrophils % (A) 61 %; Platelet Count 187 k/uL (150-450); RBC 5.31 m/uL (4.30-5.90); RDW 15.5 % (11.5-15.5); WBC 4.3 k/uL (3.8-10.6)
[2018-12-05 22:37] LABS: INR 0.9 (<1.2); Partial Thromboplastin Time 24.6 sec (22.0-30.0); Prothrombin Time 9.5 sec (9.0-12.0)
[2018-12-05 22:45] LABS: Albumin 4.1 g/dL (3.5-5.0); Calcium 9.8 mg/dL (8.4-10.2); Potassium 4.1 mmol/L (3.5-5.1); Total Bilirubin 3.1 mg/dL (0.2-1.3); Total Protein 7.4 g/dL (6.3-8.2)
[2018-12-06 00:12] VITALS: RESP 18
[2018-12-06] MEDS ORDERED: LORazepam 1 MG TAB PO STA (01:24)
[2018-12-06 01:30] VITALS: BP 131/85; PULSE 66; TEMP 98
== END 2018-12-06 01:28 | disposition other institution (70) ==
LOC: EC 19:56
DX: R74.0 Nonspecific elevation of levels of transaminase and lactic acid dehydrogenase [LDH] (principal); R10.11 Right upper quadrant pain; F17.200 Nicotine dependence, unspecified, uncomplicated; Z86.19 Personal history of other infectious and parasitic diseases; Z79.52 Long term (current) use of systemic steroids; Z79.891 Long term (current) use of opiate analgesic; Z79.1 Long term (current) use of non-steroidal anti-inflammatories (NSAID); Z79.899 Other long term (current) drug therapy; Z94.4 Liver transplant status; Z90.49 Acquired absence of other specified parts of digestive tract
CPT/HCPCS: 96374; 96376; 36415; 80053; 82150; 83605; 83690; 85025; 85610; 85730; 81003; 99285; J2270

== ENCOUNTER 2018-12-24 22:11 | Emergency (ER) | payer OTHER ==
[2018-12-24 23:13] VITALS: BP 139/86; PULSE 68; RESP 16
[2018-12-24 23:35] LABS: ALT 149 U/L (21-72); AST 134 U/L (17-59); African American GFR (CKD) >90 (>60 ml/min/1.73 sqM); Alkaline Phosphatase 487 U/L (38-126); Amylase 57 U/L (30-110); Anion Gap 9 mmol/L; Blood Urea Nitrogen 21 mg/dL (9-20); Calcium 9.4 mg/dL (8.4-10.2); Carbon Dioxide 23 mmol/L (22-30); Chloride 107 mmol/L (98-107); Glucose 89 mg/dL (74-99); Lipase 206 U/L (23-300); Sodium 139 mmol/L (137-145); Total Bilirubin 3.1 mg/dL (0.2-1.3); Total Protein 7.2 g/dL (6.3-8.2)
[2018-12-24 23:40] LABS: INR 0.9 (<1.2); Prothrombin Time 9.5 sec (9.0-12.0)
[2018-12-24] MEDS ORDERED: SODIUM CHLORIDE 0.9% 1,000 ML IV STA (23:40)
[2018-12-24] MEDS ORDERED: ONDANSETRON 4 MG/2 ML VIAL IVP STA (23:40)
[2018-12-24] MEDS ORDERED: HYDROmorphone 0.5 MG/0.5 ML SYRINGE IVP STA (23:40)
[2018-12-24 23:41] LABS: Partial Thromboplastin Time 20.3 sec (22.0-30.0)
--- NOTE | 2018-12-24 23:46 | ED ---
General Adult HPI - General Chief complaint: Abdominal Pain Stated complaint: Liver Transplant Rejection Time Seen by Provider: 12/24/18 22:39 Source: patient, RN notes reviewed Mode of arrival: ambulatory Limitations: no limitations - History of Present Illness Initial comments: 53-year-old male presents to the emergency determine for right upper quadrant pain and nausea. Patient states he thinks he is rejecting his transplant. Patient has a history of liver transplant in 2016 due to cirrhosis secondary from hepatitis C and alcoholic cirrhosis. Patient states that he was last seen at [facility] where history is that was done 3 weeks ago and was given steroids until his liver enzymes decreased. States that in the past 3 days he started having this pain and nausea again. Denies any vomiting. Denies any fevers or chills.Patient has no other complaints at this time including shortness of breath, chest pain, nausea or vomiting, headache, or visual changes. - Related Data Home Medications Medication Instructions Recorded Confirmed Tacrolimus [Prograf] 2 mg PO HS 08/30/16 12/24/18 Sofosbuvir/Velpatasvir [Epclusa 1 tab PO QAM 10/29/18 12/24/18 400 mg-100 mg Tablet] Ranitidine HCl [Zantac] 150 mg PO BID 11/20/18 12/24/18 Ursodiol [Actigall] 300 mg PO BID 11/20/18 12/24/18 predniSONE 20 mg PO DAILY 11/20/18 12/24/18 Mycophenolate Mofetil [Cellcept] 1,500 mg PO BID 12/05/18 12/24/18 Naproxen 500 mg PO BID PRN 12/05/18 12/24/18 oxyCODONE-APAP 10-325MG [Percocet 1 tab PO Q4H 12/05/18 12/24/18 10-325 mg] Albuterol Inhaler [Ventolin Hfa 2 puff INHALATION RT-Q6H PRN 12/24/18 12/24/18 Inhaler] Beclomethasone Dip 80 Mcg/Puff 1 puff INHALATION RT-DAILY 12/24/18 12/24/18 [Qvar 80 mcg] Allergies Allergy/AdvReac Type Severity Reaction Status Date / Time No Known Allergies Allergy Verified 12/24/18 22:58 Review of Systems ROS Statement: Those systems with pertinent positive or pertinent negative responses have been documented in the HPI. ROS Other: All systems not noted in ROS Statement are negative. Past Medical History Past Medical History: GI Bleed, Liver Disease Additional Past Medical History / Comment(s): Hepatitis C, cirrhosis, appendicitis, anemia alcoholic cirrhosis/ refractory ASCITIES, past c-diff 07-15-14, ABD HERNIA, PVD, varices, recurrent Right pleural effusion. THORACENTESIS 02/15/15 History of Any Multi-Drug Resistant Organisms: C-DIFF Date of last positivie culture/infection: 07/15/2014 MDRO Source:: previous admission Past Surgical History: Appendectomy Additional Past Surgical History / Comment(s): multiple paracentesis, variceal banding, EGDAdditional Medical Hx: Hepatitis C; Cirrhosis, multiple thoracentesis,TIPS procedure liver transplant, lung surgery, "shattered rt ankle after falling 3 story roof-has plate/akil,screws" Past Anesthesia/Blood Transfusion Reactions: No Reported Reaction Additional Past Anesthesia/Blood Transfusion Reaction / Comment(s): HAS HAD BLOOD TRANSFUSIONS-NO REACTION Past Psychological History: No Psychological Hx Reported Smoking Status: Current every day smoker Past Alcohol Use History: None Reported Past Drug Use History: None Reported - Past Family History Mother Family Medical History: CVA/TIA, Myocardial Infarction ([place]) Additional Family Medical History / Comment(s): currently alive and 90 years old Father Family Medical History: No Reported History Additional Family Medical History / Comment(s): from car accident General Exam Limitations: no limitations General appearance: alert, in no apparent distress Head exam: Present: atraumatic, normocephalic, normal inspection Eye exam: Present: normal appearance, PERRL, EOMI. Absent: scleral icterus, conjunctival injection, periorbital swelling ENT exam: Present: normal exam, mucous membranes moist Neck exam: Present: normal inspection, full ROM. Absent: tenderness, meningismu s, lymphadenopathy Respiratory exam: Present: normal lung sounds bilaterally. Absent: respiratory distress, wheezes, rales, rhonchi, stridor Cardiovascular Exam: Present: regular rate, normal rhythm, normal heart sounds. Absent: systolic murmur, diastolic murmur, rubs, gallop, clicks GI/Abdominal exam: Present: soft, tenderness (Tenderness noted to the right upper quadrant.), normal bowel sounds. Absent: distended, guarding, rebound, rigid Neurological exam: Present: alert, oriented X3, CN II-XII intact Psychiatric exam: Present: normal affect, normal mood Course Vital Signs 12/24/18 12/24/18 12/25/18 22:35 23:13 00:45 Temperature 98.4 F 97 F L Pulse Rate 83 68 68 Respiratory 18 16 16 Rate Blood Pressure 130/84 139/86 139/86 O2 Sat by Pulse 99 96 96 Oximetry 12/25/18 01:04 Temperature 97 F L Pulse Rate 68 Respiratory 16 Rate Blood Pressure 139/86 O2 Sat by Pulse 96 Oximetry Medical Decision Making - Medical Decision Making 43-year-old male with history of liver transplant in 2015 presents to the emergency determine for right upper quadrant pain and nausea. States he feels like his liver enzymes are back up again. States he has been dealing with this on and off since July this year. States he was just at [facility] where he had his transplant done about 3 weeks ago and received steroids. Vit als are stable. On exam patient does have some right upper quadrant tenderness. CMP does show an ALP of 487, AST 134, ALT 149, bilirubin 3.1. CBC clotted, pending at this time. Patient will be transferred to [facility] where he had his transplant performed. Dr Tian spoke with transferring team. - Lab Data Result diagrams: 12/24/18 00:09 12/24/18 23:13 Lab Results 12/24/18 12/24/18 12/24/18 Range/Units 00:09 23:13 23:13 WBC 4.6 (3.8-10.6) k/uL RBC 4.32 (4.30-5.90) m/uL Hgb 13.2 (13.0-17.5) gm/dL Hct 38.0 L (39.0-53.0) % MCV 88.0 (80.0-100.0) fL MCH 30.5 (25.0-35.0) pg MCHC 34.7 (31.0-37.0) g/dL RDW 16.7 H (11.5-15.5) % Plt Count 123 L (150-450) k/uL Neutrophils % (Manual) 75 % Lymphocytes % (Manual) 22 % Monocytes % (Manual) 3 % Neutrophils # (Manual) 3.45 (1.3-7.7) k/uL Lymphocytes # (Manual) 1.01 (1.0-4.8) k/uL Monocytes # (Manual) 0.14 (0-1.0) k/uL Nucleated RBCs 0 (0-0) /100 WBC Manual Slide Review Performed Hypochromasia Slight Poikilocytosis Moderate Anisocytosis Slight PT 9.5 (9.0-12.0) sec INR 0.9 (<1.2) APTT 20.3 L (22.0-30.0) sec Sodium 139 (137-145) mmol/L Potassium 4.0 (3.5-5.1) mmol/L Chloride 107 (98-107) mmol/L Carbon Dioxide 23 (22-30) mmol/L Anion Gap 9 mmol/L BUN 21 H (9-20) mg/dL Creatinine 0.69 (0.66-1.25) mg/dL Est GFR (CKD-EPI)AfAm >90 (>60 ml/min/1.73 sqM) Est GFR (CKD-EPI)NonAf >90 (>60 ml/min/1.73 sqM) Glucose 89 (74-99) mg/dL Calcium 9.4 (8.4-10.2) mg/dL Total Bilirubin 3.1 H (0.2-1.3) mg/dL AST 134 H (17-59) U/L ALT 149 H (21-72) U/L Alkaline Phosphatase 487 H (38-126) U/L Total Protein 7.2 (6.3-8.2) g/dL Albumin 4.0 (3.5-5.0) g/dL Amylase 57 (30-110) U/L Lipase 206 (23-300) U/L Disposition Clinical Impression: Transaminitis, History of liver transplant Disposition: TRANSFER TO SHORT TERM HOSP Condition: Fair Referrals: Davi Matute DO [Primary Care Provider] - 1-2 days Time of Disposition: 23:56 - Out of Hospital Transfer - Req. Specs Out of Hospital Transfer - Requested Specifics: Other Emergency Center ([facility])
[2018-12-25] MEDS ORDERED: LORazepam 2 MG/ML INJ IV STA (00:04)
[2018-12-25 00:34] LABS: Anisocytosis Slight; HGB 13.2 gm/dL (13.0-17.5); Hypochromasia Slight; MCH 30.5 pg (25.0-35.0); MCHC 34.7 g/dL (31.0-37.0); Mean Platelet Volume 9.6; Platelet Count 123 k/uL (150-450); Poikilocytosis Moderate; RBC 4.32 m/uL (4.30-5.90); RDW 16.7 % (11.5-15.5); WBC 4.6 k/uL (3.8-10.6)
[2018-12-25 00:46] VITALS: TEMP 97
[2018-12-25 01:35] LABS: Lymphocytes # (M) 1.01 k/uL (1.0-4.8); Monocytes # (M) 0.14 k/uL (0-1.0); Neutrophils # (M) 3.45 k/uL (1.3-7.7); Neutrophils % (M) 75 %; Nucleated Red Blood Cells 0 /100 WBC (0-0); Total Cells Counted 100
== END 2018-12-25 02:00 | disposition short-term general hospital (02) ==
LOC: EC 22:11
DX: R74.0 Nonspecific elevation of levels of transaminase and lactic acid dehydrogenase [LDH] (principal); R10.11 Right upper quadrant pain; R11.0 Nausea; B19.20 Unspecified viral hepatitis C without hepatic coma; K70.30 Alcoholic cirrhosis of liver without ascites; F17.200 Nicotine dependence, unspecified, uncomplicated; Z94.4 Liver transplant status; Z79.51 Long term (current) use of inhaled steroids; Z79.52 Long term (current) use of systemic steroids; Z79.899 Other long term (current) drug therapy; Z87.19 Personal history of other diseases of the digestive system; Z90.49 Acquired absence of other specified parts of digestive tract
CPT/HCPCS: 99284; 96374; 96375 ×2; 96361; 36415; 80053; 82150; 83690; 85025; 85610; 85730; J2060; J2405; J1170

== ENCOUNTER 2019-01-03 15:16 | Emergency (ER) | payer OTHER ==
[2019-01-03] MEDS ORDERED: SODIUM CHLORIDE 0.9% 1,000 ML IV STA (18:17)
[2019-01-03] MEDS ORDERED: cefTRIAXone IN SWFI 1,000 MG/10 ML SYRINGE IVP STA (18:32)
--- NOTE | 2019-01-03 19:04 | ED ---
General Adult HPI - General Chief complaint: Skin/Abscess/Foreign Body Stated complaint: Bump on right shoulder Time Seen by Provider: 01/03/19 17:59 Source: patient, RN notes reviewed, old records reviewed Mode of arrival: ambulatory Limitations: no limitations - History of Present Illness Initial comments: 53-year-old male patient past medical history of hepatitis C, liver cirrhosis status post liver transplant in 2016 presents to ED for red bump and right anterior shoulder. Patient reports that on 12/24/18 he had an IV placed in this location during an evaluation for concern of liver transplant palpitations. Patient reports that he has had redness and swelling in that region since the IUD was removed the next day. Patient reports that the pain and swelling and redness in this region has been continually worsening sounds. Patient reports decreased energy and chills. Denies any nausea vomiting diarrhea congestion abdominal pain chest pain or shortness of breath. Patient denies any IV drug use or any injection in that region. Denies all other complaints. Systemic: Pt denies fatigue, fever/chills, rash. Pt denies weakness, night sweat s, weight loss. Neuro: Pt denies headache, visual disturbances, syncope or pre-syncope. HEENT: Pt denies ocular discharge or irritation, otalgia, rhinorrhea, pharyngitis or notable lymphadenopathy. Cardiopulmonary: Pt denies chest pain, SOB, heart palpitations, dyspnea on exertion. Abdominal/GI: Pt denies abdominal pain, n/v/d. : Pt denies dysuria, burning w/ urination, frequency/urgency. Denies new onset urinary or bowel incontinence. MSK: Pt denies myalgia, loss of strength or function in extremities. Neuro: Pt denies new onset weakness, paresthesias. - Related Data Home Medications Medication Instructions Recorded Confirmed Tacrolimus [Prograf] 2 mg PO HS 08/30/16 12/30/18 Sofosbuvir/Velpatasvir [Epclusa 1 tab PO QAM 10/29/18 12/30/18 400 mg-100 mg Tablet] Ranitidine HCl [Zantac] 150 mg PO BID 11/20/18 12/30/18 Ursodiol [Actigall] 300 mg PO BID 11/20/18 12/30/18 predniSONE 20 mg PO DAILY 11/20/18 12/30/18 Mycophenolate Mofetil [Cellcept] 1,500 mg PO BID 12/05/18 12/30/18 Naproxen 500 mg PO BID PRN 12/05/18 12/30/18 oxyCODONE-APAP 10-325MG [Percocet 1 tab PO Q4H 12/05/18 12/30/18 10-325 mg] Albuterol Inhaler [Ventolin Hfa 2 puff INHALATION RT-Q6H PRN 12/24/18 12/30/18 Inhaler] Beclomethasone Dip 80 Mcg/Puff 1 puff INHALATION RT-DAILY 12/24/18 12/30/18 [Qvar 80 mcg] Previous Rx's Medication Instructions Recorded Sulfamethox-Tmp 800-160Mg [Bactrim 2 tab PO Q12HR 10 Days tab 01/03/19 DS 800-160 mg] Allergies Allergy/AdvReac Type Severity Reaction Status Date / Time No Known Allergies Allergy Verified 01/03/19 16:17 Review of Systems ROS Statement: Those systems with pertinent positive or pertinent negative responses have been documented in the HPI. ROS Other: All systems not noted in ROS Statement are negative. Past Medical History Past Medical History: GI Bleed, Liver Disease Additional Past Medical History / Comment(s): Hepatitis C, cirrhosis, appendicitis, anemia alcoholic cirrhosis/ refractory ASCITIES, past c-diff 1--15, ABD HERNIA, PVD, varices, recurrent Right pleural effusion. THORACENTESIS 02/15/15 History of Any Multi-Drug Resistant Organisms: C-DIFF Date of last positivie culture/infection: 07/15/2014 MDRO Source:: previous admission Past Surgical History: Appendectomy Additional Past Surgical History / Comment(s): multiple paracentesis, variceal banding, EGDAdditional Medical Hx: Hepatitis C; Cirrhosis, multiple thora centesis,TIPS procedure liver transplant, lung surgery, "shattered rt ankle after falling 3 story roof-has plate/akil,screws" Past Anesthesia/Blood Transfusion Reactions: No Reported Reaction Additional Past Anesthesia/Blood Transfusion Reaction / Comment(s): HAS HAD BLOOD TRANSFUSIONS-NO REACTION Past Psychological History: No Psychological Hx Reported Smoking Status: Current every day smoker Past Alcohol Use History: None Reported Past Drug Use History: None Reported - Past Family History Mother Family Medical History: CVA/TIA, Myocardial Infarction ([place]) Additional Family Medical History / Comment(s): currently alive and 90 years old Father Family Medical History: No Reported History Additional Family Medical History / Comment(s): from car accident General Exam - General Exam Comments Initial Comments: Constitutional: NAD, AOX3, Pt has pleasant affect. HEENT: NC/AT, trachea midline, neck supple, no lymphadenopathy. Posterior pharynx non erythematous, without exudates. External ears appear normal, without discharge. Mucous membranes moist. Eyes PERRLA, EOM intact. There is no scleral icterus. No pallor noted. Cardiopulmonary: RRR, no murmurs, rubs or gallops, no JVD noted. Lungs CTAB in anterior and posterior arreaga. No peripheral edema. Abdominal exam: Abdomen soft and non-distended. Abdomen non-tender to palpation in all 4 quadrants. Bowel sounds active in LLQ. No hepatosplenomegaly. No ecchymosis Neuro: CN II-XII grossly intact. No nuchal rigidity. No raccon eyes, no cohen sign, no hemotympanum. No cervical spinal tenderness. MSK: No posterior calf tenderness bilaterally, homans sign negative bilaterally. Posterior tibialis and radial pulse +2 bilaterally. Sensation intact in upper and lower extremities. Full active ROM in upper and lower extremities, 5/5 stregnth. Derm: 4x2 cm fluctuant abscess noted in R anterior shoulder. No streaking, mildly tender to palpation. Limitations: no limitations Course Vital Signs 01/03/19 01/03/19 16:15 19:24 Temperature 99.0 F 100.6 F H Pulse Rate 82 78 Respiratory 18 16 Rate Blood Pressure 134/73 128/78 O2 Sat by Pulse 97 97 Oximetry Medical Decision Making - Medical Decision Making 53-year-old male patient past medical history of hepatitis C, liver cirrhosis status post liver transplant in 2016 presents to ED for red bump and right anterior shoulder. Patient reports that on 12/24/18 he had an IV placed in this location during an evaluation for concern of liver transplant palpitations. Pat ient reports that he has had redness and swelling in that region since the IUD was removed the next day. Patient reports that the pain and swelling and redness in this region has been continually worsening sounds. Patient reports decreased energy and chills. Denies any nausea vomiting diarrhea congestion abdominal pain chest pain or shortness of breath. Patient denies any IV drug use or any injection in that region. Denies all other complaints. Patient vital signs displayed mild fever 100.6, otherwise stable. Physical exam displayed: x2 cm fluctuant abscess noted in R anterior shoulder. No streaking, mildly tender to palpation. Incision and drainage revealed small amount of pus, blood. Laboratory investigations revealed non-impressive CBC. CMP revealed mildly elevated potassium of 5.5, slight hemolysis on sample. Bilirubin and AST ALT alk phos all mildly elevated, around baseline for patient. UA revealed +1 bilirubin. Patient was administered 1 g ceftriaxone ED. Repeat potassium was ordered. Prior to laboratory results patient eloped. I did see the patient walking out, and stated that I strongly reccomend him to stay. As patient was walking with explained that if he is going to leave AGAINST MEDICAL ADVICE I would like to write him antibiotics to go home with. Patient declined stated that he may come back to pick them up. I explained to patient risks of leaving including . Patient verbalized understanding. Case discussed in depth with Dr. Hernandez. - Lab Data Result diagrams: 01/03/19 18:45 01/03/19 18:45 Lab Results 01/03/19 01/03/19 01/03/19 Range/Units 18:45 18:45 18:45 WBC 3.9 (3.8-10.6) k/uL RBC 4.49 (4.30-5.90) m/uL Hgb 13.9 (13.0-17.5) gm/dL Hct 41.5 (39.0-53.0) % MCV 92.4 (80.0-100.0) fL MCH 30.9 (25.0-35.0) pg MCHC 33.4 (31.0-37.0) g/dL RDW 14.5 (11.5-15.5) % Plt Count 197 (150-450) k/uL Neutrophils % 73 % Lymphocytes % 14 % Monocytes % 5 % Eosinophils % 4 % Basophils % 0 % Neutrophils # 2.8 (1.3-7.7) k/uL Lymphocytes # 0.6 L (1.0-4.8) k/uL Monocytes # 0.2 (0-1.0) k/uL Eosinophils # 0.2 (0-0.7) k/uL Basophils # 0.0 (0-0.2) k/uL Sodium 134 L (137-145) mmol/L Potassium 5.5 H (3.5-5.1) mmol/L Chloride 102 (98-107) mmol/L Carbon Dioxide 23 (22-30) mmol/L Anion Gap 9 mmol/L BUN 11 (9-20) mg/dL Creatinine 0.65 L (0.66-1.25) mg/dL Est GFR (CKD-EPI)AfAm >90 (>60 ml/min/1.73 sqM) Est GFR (CKD-EPI)NonAf >90 (>60 ml/min/1.73 sqM) Glucose 89 (74-99) mg/dL Plasma Lactic Acid Devin 0.9 (0.7-2.0) mmol/L Calcium 9.3 (8.4-10.2) mg/dL Total Bilirubin 3.8 H (0.2-1.3) mg/dL AST 112 H (17-59) U/L ALT 86 H (21-72) U/L Alkaline Phosphatase 544 H (38-126) U/L Total Protein 7.9 (6.3-8.2) g/dL Albumin 4.3 (3.5-5.0) g/dL Urine Color Urine Appearance (Clear) Urine pH (5.0-8.0) Ur Specific [place] (1.001-1.035) Urine Protein (Negative) Urine Glucose (UA) (Negative) Urine Ketones (Negative) Urine Blood (Negative) Urine Nitrite (Negative) Urine Bilirubin (Negative) Urine Urobilinogen (<2.0) mg/dL Ur Leukocyte Esterase (Negative) 01/03/19 Range/Units 19:15 WBC (3.8-10.6) k/uL RBC (4.30-5.90) m/uL Hgb (13.0-17.5) gm/dL Hct (39.0-53.0) % MCV (80.0-100.0) fL MCH (25.0-35.0) pg MCHC (31.0-37.0) g/dL RDW (11.5-15.5) % Plt Count (150-450) k/uL Neutrophils % % Lymphocytes % % Monocytes % % Eosinophils % % Basophils % % Neutrophils # (1.3-7.7) k/uL Lymphocytes # (1.0-4.8) k/uL Monocytes # (0-1.0) k/uL Eosinophils # (0-0.7) k/uL Basophils # (0-0.2) k/uL Sodium (137-145) mmol/L Potassium (3.5-5.1) mmol/L Chloride (98-107) mmol/L Carbon Dioxide (22-30) mmol/L Anion Gap mmol/L BUN (9-20) mg/dL Creatinine (0.66-1.25) mg/dL Est GFR (CKD-EPI)AfAm (>60 ml/min/1.73 sqM) Est GFR (CKD-EPI)NonAf (>60 ml/min/1.73 sqM) Glucose (74-99) mg/dL Plasma Lactic Acid Devin (0.7-2.0) mmol/L Calcium (8.4-10.2) mg/dL Total Bilirubin (0.2-1.3) mg/dL AST (17-59) U/L ALT (21-72) U/L Alkaline Phosphatase (38-126) U/L Total Protein (6.3-8.2) g/dL Albumin (3.5-5.0) g/dL Urine Color Yellow Urine Appearance Clear (Clear) Urine pH 5.0 (5.0-8.0) Ur Specific [place] 1.018 (1.001-1.035) Urine Protein Negative (Negative) Urine Glucose (UA) Negative (Negative) Urine Ketones Negative (Negative) Urine Blood Negative (Negative) Urine Nitrite Negative (Negative) Urine Bilirubin 1+ H (Negative) Urine Urobilinogen 3.0 (<2.0) mg/dL Ur Leukocyte Esterase Negative (Negative) Disposition Clinical Impression: Abscess Disposition: Left Against Medical Advice Condition: Undetermined Prescriptions: Sulfamethox-Tmp 800-160Mg [Bactrim DS 800-160 mg] 2 tab PO Q12HR 10 Days tab Is patient prescribed a controlled substance at d/c from ED?: No Referrals: Davi Matute DO [Primary Care Provider] - 1-2 days
[2019-01-03 19:08] LABS: Basophils % (A) 0 %; Eosinophils # (A) 0.2 k/uL (0-0.7); Eosinophils % (A) 4 %; HCT 41.5 % (39.0-53.0); HGB 13.9 gm/dL (13.0-17.5); Lymphocytes # (A) 0.6 k/uL (1.0-4.8); Lymphocytes % (A) 14 %; MCH 30.9 pg (25.0-35.0); MCHC 33.4 g/dL (31.0-37.0); MCV 92.4 fL (80.0-100.0); Mean Platelet Volume 7.1; Monocytes # (A) 0.2 k/uL (0-1.0); Monocytes % (A) 5 %; Neutrophils # (A) 2.8 k/uL (1.3-7.7); Neutrophils % (A) 73 %; Platelet Count 197 k/uL (150-450); RBC 4.49 m/uL (4.30-5.90); RDW 14.5 % (11.5-15.5); WBC 3.9 k/uL (3.8-10.6)
[2019-01-03 19:26] LABS: ALT 86 U/L (21-72); AST 112 U/L (17-59); African American GFR (CKD) >90 (>60 ml/min/1.73 sqM); Albumin 4.3 g/dL (3.5-5.0); Alkaline Phosphatase 544 U/L (38-126); Anion Gap 9 mmol/L; Blood Urea Nitrogen 11 mg/dL (9-20); Calcium 9.3 mg/dL (8.4-10.2); Carbon Dioxide 23 mmol/L (22-30); Chloride 102 mmol/L (98-107); Glucose 89 mg/dL (74-99); Sodium 134 mmol/L (137-145); Total Bilirubin 3.8 mg/dL (0.2-1.3); Total Protein 7.9 g/dL (6.3-8.2)
[2019-01-03 19:28] LABS: Potassium 5.5 mmol/L (3.5-5.1)
[2019-01-03 19:29] VITALS: BP 128/78; PULSE 78; RESP 16; TEMP 100.6
[2019-01-03 19:38] LABS: Appearance,Urine Clear (Clear); Bilirubin,Urine 1+ (Negative); Blood,Urine Negative (Negative); Color,Urine Yellow; Glucose,Urine (UA) Negative (Negative); Ketones,Urine Negative (Negative); Leukocyte Esterase,Urine Negative (Negative); Nitrite,Urine Negative (Negative); Protein,Urine Negative (Negative); Specific Gravity,Urine 1.018 (1.001-1.035)
[2019-01-03] MEDS: Acetaminophen-Codeine 300-30mg TAB PO STA ×2 (20:34→20:36)
== END 2019-01-03 21:15 | disposition left against medical advice (07) ==
LOC: EC 15:16
DX: L02.413 Cutaneous abscess of right upper limb (principal); F17.200 Nicotine dependence, unspecified, uncomplicated; Z79.51 Long term (current) use of inhaled steroids; Z79.899 Other long term (current) drug therapy; Z94.4 Liver transplant status
CPT/HCPCS: 36415; 80053; 83605; 85025; 81003; 87040; 99284; 10060; 96374; 96361; J0696

== ENCOUNTER 2019-02-12 13:39 | Emergency (ER) | payer OTHER ==
[2019-02-12 15:04] LABS: Basophils % (A) 0 %; Eosinophils # (A) 0.2 k/uL (0-0.7); Eosinophils % (A) 6 %; HGB 15.5 gm/dL (13.0-17.5); Lymphocytes % (A) 23 %; MCH 30.2 pg (25.0-35.0); MCV 91.7 fL (80.0-100.0); Mean Platelet Volume 7.7; Monocytes # (A) 0.3 k/uL (0-1.0); Monocytes % (A) 6 %; Neutrophils # (A) 2.8 k/uL (1.3-7.7); Neutrophils % (A) 64 %; Platelet Count 156 k/uL (150-450); RBC 5.13 m/uL (4.30-5.90); RDW 14.6 % (11.5-15.5); WBC 4.4 k/uL (3.8-10.6)
[2019-02-12 15:06] LABS: ALT 234 U/L (21-72); AST 249 U/L (17-59); African American GFR (CKD) >90 (>60 ml/min/1.73 sqM); Albumin 4.3 g/dL (3.5-5.0); Alkaline Phosphatase 547 U/L (38-126); Amylase 67 U/L (30-110); Anion Gap 11 mmol/L; Blood Urea Nitrogen 17 mg/dL (9-20); Calcium 10.1 mg/dL (8.4-10.2); Carbon Dioxide 24 mmol/L (22-30); Chloride 104 mmol/L (98-107); Glucose 106 mg/dL (74-99); Potassium 4.2 mmol/L (3.5-5.1); Sodium 139 mmol/L (137-145); Total Protein 7.9 g/dL (6.3-8.2)
[2019-02-12 15:16] LABS: INR 0.9 (<1.2); Partial Thromboplastin Time 27.3 sec (22.0-30.0); Prothrombin Time 9.8 sec (9.0-12.0)
--- NOTE | 2019-02-12 15:59 | ED ---
General Adult HPI - General Chief complaint: Abdominal Pain Stated complaint: Liver issues Time Seen by Provider: 02/12/19 13:40 Source: patient, RN notes reviewed Mode of arrival: ambulatory Limitations: no limitations - History of Present Illness Initial comments: This is a 54-year-old male who has a past medical history significant for a liver transplant secondary to hepatitis C. Patient states he's been having problems since July with rejection. Patient states he is feeling again as though he might be rejecting because the patient is having more weakness nausea and feels a little more confused. Patient states this has happened a couple t imes in the past and always has be transferred out [facility] hospital. Patient denies any chest pain difficulty breathing or shortness of breath. Patient denies any palpitations. Patient denies any recent fever chills or cough. Patient states she does have some right upper quadrant abdominal pain which is typical when he is having these issues. Patient denies any dysuria or hematuria. Patient viridiana es headache patient denies numbness weakness. - Related Data Home Medications Medication Instructions Recorded Confirmed Tacrolimus [Prograf] 2 mg PO BID 08/30/16 02/12/19 oxyCODONE HCL [oxyCODONE HCL (IR)] 15 mg PO Q6H PRN 02/12/19 02/12/19 Allergies Allergy/AdvReac Type Severity Reaction Status Date / Time No Known Allergies Allergy Verified 02/12/19 16:49 Review of Systems ROS Statement: Those systems with pertinent positive or pertinent negative responses have been documented in the HPI. ROS Other: All systems not noted in ROS Statement are negative. Past Medical History Past Medical History: GI Bleed, Liver Disease Additional Past Medical History / Comment(s): Hepatitis C, cirrhosis, appendicitis, anemia alcoholic cirrhosis/ refractory ASCITIES, past c-diff 07-15-14, ABD HERNIA, PVD, varices, recurrent Right pleural effusion. THORACENTESIS 02/15/15 History of Any Multi-Drug Resistant Organisms: C-DIFF Date of last positivie culture/infection: 07/15/2014 MDRO Source:: previous admission Past Surgical History: Appendectomy Additional Past Surgical History / Comment(s): multiple paracentesis, variceal banding, EGDAdditional Medical Hx: Hepatitis C; Cirrhosis, multiple thoracentesis,TIPS procedure liver transplant, lung surgery, "shattered rt ankl e after falling 3 story roof-has plate/akil,screws" Past Anesthesia/Blood Transfusion Reactions: No Reported Reaction Additional Past Anesthesia/Blood Transfusion Reaction / Comment(s): HAS HAD BLOOD TRANSFUSIONS-NO REACTION Past Psychological History: No Psychological Hx Reported Smoking Status: Current every day smoker Past Alcohol Use History: None Reported Past Drug Use History: None Reported - Past Family History Mother Family Medical History: CVA/TIA, Myocardial Infarction ([place]) Additional Family Medical History / Comment(s): currently alive and 90 years old Father Family Medical History: No Reported History Additional Family Medical History / Comment(s): from car accident General Exam - General Exam Comments Initial Comments: GENERAL: Patient is well-developed and well-nourished. Patient is nontoxic and well-hydrated and is in mild distress. ENT: Neck is soft and supple. No significant lymphadenopathy is noted. Oropharynx is clear. Moist mucous membranes. Neck has full range of motion without eliciting any pain. EYES: The sclera were anicteric and conjunctiva were pink and moist. Extraocular movements were intact and pupils were equal round and reactive to light. Eyelids were unremarkable. PULMONARY: Unlabored respirations. Good breath sounds bilaterally. No audible rales rhonchi or wheezing was noted. CARDIOVASCULAR: There is a regular rate and rhythm without any murmurs gallops or rubs. ABDOMEN: Patient has right upper quadrant abdominal pain no guarding SKIN: Skin is clear with no lesions or rashes and otherwise unremarkable. NEUROLOGIC: Patient is alert and oriented x3. Cranial nerves II through XII are grossly intact. Motor and sensory are also intact. Normal speech, volume and content. Symmetrical smile. MUSCULOSKELETAL: Normal extremities with adequate strength and full range of motion. No lower extremity swelling or edema. No calf tenderness. LYMPHATICS: No significant lymphadenopathy is noted PSYCHIATRIC: Normal psychiatric evaluation. Limitations: no limitations Course Vital Signs 02/12/19 02/12/19 02/12/19 13:41 15:04 16:32 Temperature 98.2 F 98.3 F Pulse Rate 81 64 Respiratory 18 18 16 Rate Blood Pressure 128/86 144/90 O2 Sat by Pulse 95 97 Oximetry Medical Decision Making - Medical Decision Making I spoke with the gastrologist [facility] she wanted the patient transferred to [facility]. I spoke with the transferring doctor Dr. Russell and she agreed to accept the patient she states that the patient I set up transfer. - Lab Data Result diagrams: 02/12/19 14:42 02/12/19 14:42 Lab Results 02/12/19 02/12/19 02/12/19 Range/Units 14:42 14:42 14:42 WBC 4.4 (3.8-10.6) k/uL RBC 5.13 (4.30-5.90) m/uL Hgb 15.5 (13.0-17.5) gm/dL Hct 47.0 (39.0-53.0) % MCV 91.7 (80.0-100.0) fL MCH 30.2 (25.0-35.0) pg MCHC 33.0 (31.0-37.0) g/dL RDW 14.6 (11.5-15.5) % Plt Count 156 (150-450) k/uL Neutrophils % 64 % Lymphocytes % 23 % Monocytes % 6 % Eosinophils % 6 % Basophils % 0 % Neutrophils # 2.8 (1.3-7.7) k/uL Lymphocytes # 1.0 (1.0-4.8) k/uL Monocytes # 0.3 (0-1.0) k/uL Eosinophils # 0.2 (0-0.7) k/uL Basophils # 0.0 (0-0.2) k/uL PT (9.0-12.0) sec INR (<1.2) APTT (22.0-30.0) sec Sodium 139 (137-145) mmol/L Potassium 4.2 (3.5-5.1) mmol/L Chloride 104 (98-107) mmol/L Carbon Dioxide 24 (22-30) mmol/L Anion Gap 11 mmol/L BUN 17 (9-20) mg/dL Creatinine 0.72 (0.66-1.25) mg/dL Est GFR (CKD-EPI)AfAm >90 (>60 ml/min/1.73 sqM) Est GFR (CKD-EPI)NonAf >90 (>60 ml/min/1.73 sqM) Glucose 106 H (74-99) mg/dL Calcium 10.1 (8.4-10.2) mg/dL Total Bilirubin 2.0 H (0.2-1.3) mg/dL AST 249 H (17-59) U/L ALT 234 H (21-72) U/L Alkaline Phosphatase 547 H (38-126) U/L Ammonia 32 H (<30) umol/L Total Protein 7.9 (6.3-8.2) g/dL Albumin 4.3 (3.5-5.0) g/dL Amylase 67 (30-110) U/L Lipase 142 (23-300) U/L 02/12/19 Range/Units 14:42 WBC (3.8-10.6) k/uL RBC (4.30-5.90) m/uL Hgb (13.0-17.5) gm/dL Hct (39.0-53.0) % MCV (80.0-100.0) fL MCH (25.0-35.0) pg MCHC (31.0-37.0) g/dL RDW (11.5-15.5) % Plt Count (150-450) k/uL Neutrophils % % Lymphocytes % % Monocytes % % Eosinophils % % Basophils % % Neutrophils # (1.3-7.7) k/uL Lymphocytes # (1.0-4.8) k/uL Monocytes # (0-1.0) k/uL Eosinophils # (0-0.7) k/uL Basophils # (0-0.2) k/uL PT 9.8 (9.0-12.0) sec INR 0.9 (<1.2) APTT 27.3 (22.0-30.0) sec Sodium (137-145) mmol/L Potassium (3.5-5.1) mmol/L Chloride (98-107) mmol/L Carbon Dioxide (22-30) mmol/L Anion Gap mmol/L BUN (9-20) mg/dL Creatinine (0.66-1.25) mg/dL Est GFR (CKD-EPI)AfAm (>60 ml/min/1.73 sqM) Est GFR (CKD-EPI)NonAf (>60 ml/min/1.73 sqM) Glucose (74-99) mg/dL Calcium (8.4-10.2) mg/dL Total Bilirubin (0.2-1.3) mg/dL AST (17-59) U/L ALT (21-72) U/L Alkaline Phosphatase (38-126) U/L Ammonia (<30) umol/L Total Protein (6.3-8.2) g/dL Albumin (3.5-5.0) g/dL Amylase (30-110) U/L Lipase (23-300) U/L Disposition Clinical Impression: History of liver transplant, Liver transplant rejection Disposition: OTHER INSTITUTION NOT DEFINED Referrals: Davi Matute DO [Primary Care Provider] - 1-2 days Time of Disposition: 17:22
[2019-02-12] MEDS ORDERED: HYDROmorphone 0.5 MG/0.5 ML SYRINGE IVP STA (16:22)
[2019-02-12] MEDS ORDERED: LORazepam 2 MG/ML INJ IV STA (18:14)
[2019-02-12 20:03] VITALS: BP 133/89; PULSE 78; RESP 16; TEMP 97.8
== END 2019-02-12 20:05 | disposition other institution (70) ==
LOC: EC 13:39
DX: T86.41 Liver transplant rejection (principal); R10.11 Right upper quadrant pain; R53.1 Weakness; R11.0 Nausea; R41.0 Disorientation, unspecified; F17.200 Nicotine dependence, unspecified, uncomplicated; Z86.19 Personal history of other infectious and parasitic diseases; Z90.49 Acquired absence of other specified parts of digestive tract; Z79.899 Other long term (current) drug therapy
CPT/HCPCS: 36415; 80053; 82140; 82150; 83690; 85025; 85610; 85730; 99285; 96374; 96375; J2060; J1170

== ENCOUNTER 2019-08-02 13:41 | Emergency (ER) | payer OTHER ==
[2019-08-02 13:50] VITALS: PULSE 70; RESP 18
[2019-08-02] MEDS ORDERED: SODIUM CHLORIDE 0.9% 500 ML 500 ML IV STA (13:55)
[2019-08-02 14:37] LABS: Basophils % (A) 0 %; Eosinophils # (A) 0.2 k/uL (0-0.7); Eosinophils % (A) 4 %; HCT 48.1 % (39.0-53.0); HGB 16.2 gm/dL (13.0-17.5); Lymphocytes # (A) 0.8 k/uL (1.0-4.8); Lymphocytes % (A) 15 %; MCH 30.2 pg (25.0-35.0); MCHC 33.7 g/dL (31.0-37.0); MCV 89.8 fL (80.0-100.0); Mean Platelet Volume 7.1; Monocytes # (A) 0.3 k/uL (0-1.0); Monocytes % (A) 6 %; Neutrophils # (A) 3.8 k/uL (1.3-7.7); Neutrophils % (A) 72 %; Platelet Count 173 k/uL (150-450); RBC 5.35 m/uL (4.30-5.90); RDW 14.8 % (11.5-15.5); WBC 5.2 k/uL (3.8-10.6)
[2019-08-02 14:42] LABS: Appearance,Urine Clear (Clear); Bilirubin,Urine 1+ (Negative); Blood,Urine Negative (Negative); Color,Urine Dark Brown; Glucose,Urine (UA) Negative (Negative); Ketones,Urine Negative (Negative); Leukocyte Esterase,Urine Negative (Negative); Nitrite,Urine Negative (Negative); Protein,Urine Trace (Negative); Specific Gravity,Urine 1.022 (1.001-1.035); Urobilinogen,Urine >12.0 mg/dL (<2.0)
--- NOTE | 2019-08-02 14:43 | ED ---
General Adult HPI - General Chief complaint: Abdominal Pain Stated complaint: Liver failure Time Seen by Provider: 08/02/19 13:54 Source: patient Mode of arrival: ambulatory Limitations: no limitations - History of Present Illness Initial comments: Dictation was produced using [employer] dictation software. please excuse any grammatical, word or spelling errors. Chief Complaint: 54-year-old male past medical history of hepatitis C, cirrhosis liver transplant presents with concern of liver injection. History of Present Illness: 54-year-old male who presents today with concern of transplant rejection. 2017 patient had liver transplant performed at [facility]. 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 Patient states he has mild abdominal pain and having hematemesis and urinating blood. Patient states even having these symptoms for the last couple days. States that typically when he gets the symptoms and comes here and ends up getting transferred to [facility]. Denies any nausea vomiting. No diarrhea. Does take multiple immunosuppressive medications. He called [facility] and was instructed to come to the emergency department for evaluation. The ROS documented in this emergency department record has been reviewed and confirmed by me. Those systems with pertinent positive or negative responses have been documented in the HPI. All other systems are other negative and/or noncontributory. PHYSICAL EXAM: General Impression: Alert and oriented x3, not in acute distress HEENT: Normocephalic atraumatic, extra-ocular movements intact, pupils equal and reactive to light bilaterally, mucous membranes moist. Cardiovascular: Heart regular rate and rhythm, S1&S2 audible, no murmurs, rubs or gallops Chest: Lungs clear to auscultation bilaterally, no rhonchi, no wheeze, no rales Abdomen: Bowel sounds present, abdomen soft, non-tender, non-distended, no or ganomegaly, abdominal scar, clean, dry and intact Musculoskeletal: Pulses present and equal in all extremities, no peripheral edema Motor: no focal deficits noted Neurological: CN II-XII grossly intact, no focal motor or sensory deficits noted Skin: Intact with no visualized rashes Psych: Normal affect and mood ED course: 54 yo male presents with concern of liver transplant rejection. Vital signs upon arrival are within acceptable limits. Physical examination is benign. Laboratory evaluation obtained. CBC unremarkable. Coag panel is unremarkable. Metabolic panel shows elevation of liver enzymes. AST 222, ALT 161, alk phos is 726, bilirubin is 2.8. Discussed patient case Dr. Slater, GI fellow who is long distance operator for patient's transplant surgeon Dr. Thompson recommends patient [facility] He reports that patient's enzymes here are slightly elevated than his usual. Patient is well-appearing at bedside. He had no such episode of vomiting or coughing up blood. Discussed patient case with Dr. Galeas is willing to accept patients care. Patient requested that he wants to drive via private vehicle with a friend. He understands that he could be injured in route. He understands that it's alighted eluding issue however he is willing to sign out. Patient's well-appearing and he has a saturator operator that will drive for him. Bed assignment currently being process. Patient given packages information. He will drive done via private vehicle. - Related Data Home Medications Medication Instructions Recorded Confirmed Tacrolimus [Prograf] 2 mg PO BID 08/30/16 02/12/19 oxyCODONE HCL [oxyCODONE HCL (IR)] 15 mg PO BID PRN 02/12/19 02/12/19 Allergies Allergy/AdvReac Type Severity Reaction Status Date / Time No Known Allergies Allergy Verified 02/12/19 16:49 Review of Systems ROS Statement: Those systems with pertinent positive or pertinent negative responses have been documented in the HPI. ROS Other: All systems not noted in ROS Statement are negative. Past Medical History Past Medical History: GI Bleed, Liver Disease Additional Past Medical History / Comment(s): Hepatitis C, cirrhosis, appendicitis, anemia alcoholic cirrhosis/ refractory ASCITIES, past c-diff 07-15-14, ABD HERNIA, PVD, varices, recurrent Right pleural effusion. THORACENTESIS 02/15/15 History of Any Multi-Drug Resistant Organisms: C-DIFF Date of last positivie culture/infection: 07/15/2014 MDRO Source:: previous admission Past Surgical History: Appendectomy Additional Past Surgical History / Comment(s): multiple paracentesis, variceal banding, EGDAdditional Medical Hx: Hepatitis C; Cirrhosis, multiple thoracentesis,TIPS procedure liver transplant, lung surgery, "shattered rt ankle after falling 3 story roof-has plate/akil,screws" Past Anesthesia/Blood Transfusion Reactions: No Reported Reaction Additional Past Anesthesia/Blood Transfusion Reaction / Comment(s): HAS HAD BLOOD TRANSFUSIONS-NO REACTION Past Psychological History: No Psychological Hx Reported Smoking Status: Current every day smoker Past Alcohol Use History: None Reported Past Drug Use History: Marijuana - Past Family History Mother Family Medical History: CVA/TIA, Myocardial Infarction ([place]) Additional Family Medical History / Comment(s): currently alive and 90 years old Father Family Medical History: No Reported History Additional Family Medical History / Comment(s): from car accident General Exam Limitations: no limitations Course Vital Signs 08/02/19 13:47 Temperature 97.4 F L Pulse Rate 70 Respiratory 18 Rate Blood Pressure 160/99 O2 Sat by Pulse 98 Oximetry Medical Decision Making - Lab Data Result diagrams: 08/02/19 13:54 08/02/19 13:54 Lab Results 08/02/19 08/02/19 08/02/19 Range/Units 13:54 13:54 13:54 WBC 5.2 (3.8-10.6) k/uL RBC 5.35 (4.30-5.90) m/uL Hgb 16.2 (13.0-17.5) gm/dL Hct 48.1 (39.0-53.0) % MCV 89.8 (80.0-100.0) fL MCH 30.2 (25.0-35.0) pg MCHC 33.7 (31.0-37.0) g/dL RDW 14.8 (11.5-15.5) % Plt Count 173 (150-450) k/uL Neutrophils % 72 % Lymphocytes % 15 % Monocytes % 6 % Eosinophils % 4 % Basophils % 0 % Neutrophils # 3.8 (1.3-7.7) k/uL Lymphocytes # 0.8 L (1.0-4.8) k/uL Monocytes # 0.3 (0-1.0) k/uL Eosinophils # 0.2 (0-0.7) k/uL Basophils # 0.0 (0-0.2) k/uL PT (9.0-12.0) sec INR (<1.2) APTT (22.0-30.0) sec Sodium 140 (137-145) mmol/L Potassium 4.3 (3.5-5.1) mmol/L Chloride 106 (98-107) mmol/L Carbon Dioxide 25 (22-30) mmol/L Anion Gap 9 mmol/L BUN 12 (9-20) mg/dL Creatinine 0.67 (0.66-1.25) mg/dL Est GFR (CKD-EPI)AfAm >90 (>60 ml/min/1.73 sqM) Est GFR (CKD-EPI)NonAf >90 (>60 ml/min/1.73 sqM) Glucose 123 H (74-99) mg/dL Plasma Lactic Acid Devin 0.9 (0.7-2.0) mmol/L Calcium 9.7 (8.4-10.2) mg/dL Total Bilirubin 2.8 H (0.2-1.3) mg/dL AST 222 H (17-59) U/L ALT 161 H (4-49) U/L Alkaline Phosphatase 726 H (38-126) U/L Total Protein 8.4 H (6.3-8.2) g/dL Albumin 4.6 (3.5-5.0) g/dL Lipase 102 (23-300) U/L Urine Color Urine Appearance (Clear) Urine pH (5.0-8.0) Ur Specific Everest (1.001-1.035) Urine Protein (Negative) Urine Glucose (UA) (Negative) Urine Ketones (Negative) Urine Blood (Negative) Urine Nitrite (Negative) Urine Bilirubin (Negative) Urine Urobilinogen (<2.0) mg/dL Ur Leukocyte Esterase (Negative) 08/02/19 08/02/19 Range/Units 13:54 13:54 WBC (3.8-10.6) k/uL RBC (4.30-5.90) m/uL Hgb (13.0-17.5) gm/dL Hct (39.0-53.0) % MCV (80.0-100.0) fL MCH (25.0-35.0) pg MCHC (31.0-37.0) g/dL RDW (11.5-15.5) % Plt Count (150-450) k/uL Neutrophils % % Lymphocytes % % Monocytes % % Eosinophils % % Basophils % % Neutrophils # (1.3-7.7) k/uL Lymphocytes # (1.0-4.8) k/uL Monocytes # (0-1.0) k/uL Eosinophils # (0-0.7) k/uL Basophils # (0-0.2) k/uL PT 10.2 (9.0-12.0) sec INR 1.0 (<1.2) APTT 25.2 (22.0-30.0) sec Sodium (137-145) mmol/L Potassium (3.5-5.1) mmol/L Chloride (98-107) mmol/L Carbon Dioxide (22-30) mmol/L Anion Gap mmol/L BUN (9-20) mg/dL Creatinine (0.66-1.25) mg/dL Est GFR (CKD-EPI)AfAm (>60 ml/min/1.73 sqM) Est GFR (CKD-EPI)NonAf (>60 ml/min/1.73 sqM) Glucose (74-99) mg/dL Plasma Lactic Acid Devin (0.7-2.0) mmol/L Calcium (8.4-10.2) mg/dL Total Bilirubin (0.2-1.3) mg/dL AST (17-59) U/L ALT (4-49) U/L Alkaline Phosphatase (38-126) U/L Total Protein (6.3-8.2) g/dL Albumin (3.5-5.0) g/dL Lipase (23-300) U/L Urine Color Dark Brown Urine Appearance Clear (Clear) Urine pH 6.0 (5.0-8.0) Ur Specific [place] 1.022 (1.001-1.035) Urine Protein Trace H (Negative) Urine Glucose (UA) Negative (Negative) Urine Ketones Negative (Negative) Urine Blood Negative (Negative) Urine Nitrite Negative (Negative) Urine Bilirubin 1+ H (Negative) Urine Urobilinogen >12.0 (<2.0) mg/dL Ur Leukocyte Esterase Negative (Negative) Disposition Clinical Impression: Transplant rejection Disposition: OTHER INSTITUTION NOT DEFINED Condition: Fair Referrals: Davi Matute DO [Primary Care Provider] - 1-2 days - Out of Hospital Transfer - Req. Specs Out of Hospital Transfer - Requested Specifics: Other Emergency Center ([facility])
[2019-08-02 14:45] LABS: Partial Thromboplastin Time 25.2 sec (22.0-30.0); Prothrombin Time 10.2 sec (9.0-12.0)
[2019-08-02 14:49] LABS: ALT 161 U/L (4-49); AST 222 U/L (17-59); African American GFR (CKD) >90 (>60 ml/min/1.73 sqM); Albumin 4.6 g/dL (3.5-5.0); Alkaline Phosphatase 726 U/L (38-126); Anion Gap 9 mmol/L; Blood Urea Nitrogen 12 mg/dL (9-20); Calcium 9.7 mg/dL (8.4-10.2); Carbon Dioxide 25 mmol/L (22-30); Chloride 106 mmol/L (98-107); Glucose 123 mg/dL (74-99); Non-African American GFR(CKD) >90 (>60 ml/min/1.73 sqM); Potassium 4.3 mmol/L (3.5-5.1); Sodium 140 mmol/L (137-145); Total Bilirubin 2.8 mg/dL (0.2-1.3); Total Protein 8.4 g/dL (6.3-8.2)
[2019-08-02] MEDS ORDERED: ONDANSETRON ODT 4 MG TAB PO STA (16:52)
[2019-08-02 17:26] VITALS: BP 178/97; TEMP 97.6
== END 2019-08-02 17:23 | disposition other institution (70) ==
LOC: EC 13:41
DX: T86.41 Liver transplant rejection (principal); R74.8 Abnormal levels of other serum enzymes; R10.9 Unspecified abdominal pain; K92.0 Hematemesis; R31.9 Hematuria, unspecified; Z87.19 Personal history of other diseases of the digestive system; F17.200 Nicotine dependence, unspecified, uncomplicated; Z90.49 Acquired absence of other specified parts of digestive tract; Z79.899 Other long term (current) drug therapy
CPT/HCPCS: 36415; 80053; 80197; 81003; 83605; 83690; 85025; 85610; 85730; 96360; 96361; 99284

== ENCOUNTER 2019-08-09 20:17 | Emergency (ER) | payer OTHER ==
[2019-08-09 20:25] VITALS: BP 159/79; PULSE 81; RESP 18; TEMP 97.7
--- NOTE | 2019-08-09 20:52 | ED ---
General Adult HPI - General Chief complaint: Skin/Abscess/Foreign Body Stated complaint: Lump on face Time Seen by Provider: 08/09/19 20:27 Source: patient, RN notes reviewed Mode of arrival: ambulatory Limitations: no limitations - History of Present Illness Initial comments: 54 year old male presents to the emergency department for a chief complaint of lump on the right side of the face. Patient states it has been there for weeks. States that he needs to get it removed. States it is somewhat painful. Patient denies visual changes but states he can see it out of the corner of his eye. Denies any spreading redness. Denies it increasing in size.Patient has no other complaints at this time including shortness of breath, chest pain, abdominal pain, nausea or vomiting, headache, or visual changes. - Related Data Home Medications Medication Instructions Recorded Confirmed Tacrolimus [Prograf] 2 mg PO BID 08/30/16 02/12/19 oxyCODONE HCL [oxyCODONE HCL (IR)] 15 mg PO BID PRN 02/12/19 02/12/19 Allergies Allergy/AdvReac Type Severity Reaction Status Date / Time No Known Allergies Allergy Verified 08/09/19 20:25 Review of Systems ROS Statement: Those systems with pertinent positive or pertinent negative responses have been documented in the HPI. ROS Other: All systems not noted in ROS Statement are negative. Past Medical History Past Medical History: GI Bleed, Liver Disease Additional Past Medical History / Comment(s): Hepatitis C, cirrhosis, appendicitis, anemia alcoholic cirrhosis/ refractory ASCITIES, past c-diff 1--15, ABD HERNIA, PVD, varices, recurrent Right pleural effusion. THORACENTESIS 02/15/15 History of Any Multi-Drug Resistant Organisms: C-DIFF Date of last positivie culture/infection: 07/15/2014 MDRO Source:: previous admission Past Surgical History: Appendectomy Additional Past Surgical History / Comment(s): multiple paracentesis, variceal banding, EGDAdditional Medical Hx: Hepatitis C; Cirrhosis, multiple thoracentesis,TIPS procedure liver transplant, lung surgery, "shattered rt ankle after falling 3 story roof-has plate/akil,screws" Past Anesthesia/Blood Transfusion Reactions: No Reported Reaction Additional Past Anesthesia/Blood Transfusion Reaction / Comment(s): HAS HAD BLOOD TRANSFUSIONS-NO REACTION Past Psychological History: No Psychological Hx Reported Smoking Status: Current every day smoker Past Alcohol Use History: None Reported Past Drug Use History: Marijuana - Past Family History Mother Family Medical History: CVA/TIA, Myocardial Infarction ([place]) Additional Family Medical History / Comment(s): currently alive and 90 years old Father Family Medical History: No Reported History Additional Family Medical History / Comment(s): from car accident General Exam Limitations: no limitations General appearance: alert, in no apparent distress Head exam: Present: atraumatic, normocephalic, normal inspection Eye exam: Present: PERRL, EOMI, other (Patient has a 1 cm x 1 cm rounded mass noted to the right side of the face lateral to the orbit, freely movable, does not involve the eye). Absent: scleral icterus, conjunctival injection, periorbital swelling Course Vital Signs 08/09/19 20:22 Temperature 97.7 F Pulse Rate 81 Respiratory 18 Rate Blood Pressure 159/79 O2 Sat by Pulse 98 Oximetry Medical Decision Making - Medical Decision Making Patient has a soft tissue mass lateral to the right orbit. This is freely movable. It is non-erythematous. Does not appear infectious. Full range of motion of the right eye. This could be a type of lipoma/ soft tissue mass. At this point I recommend he follow up with dermatology. He has an appointment with his primary care on Sunday which she will also follow up with. Discussed returning here if his any worsening symptoms or visual changes. Disposition Clinical Impression: Soft tissue mass Disposition: HOME SELF-CARE Condition: Good Instructions (If sedation given, give patient instructions): Lipoma (ED), Soft Tissue Mass (ED) Additional Instructions: Please follow up with primary care at your appointment on Sunday morning. Please follow up with dermatology as well. If you have any worsening symptoms return to the emergency department. Is patient prescribed a controlled substance at d/c from ED?: No Referrals: Davi Matute DO [Primary Care Provider] - 1-2 days Ricky Clark MD [STAFF PHYSICIAN] - 1-2 days Time of Disposition: 20:51
== END 2019-08-09 21:03 | disposition home or self-care (01) ==
LOC: EC 20:17
DX: R22.0 Localized swelling, mass and lump, head (principal); K70.30 Alcoholic cirrhosis of liver without ascites; F17.200 Nicotine dependence, unspecified, uncomplicated; Z94.4 Liver transplant status; Z79.899 Other long term (current) drug therapy
CPT/HCPCS: 99283

== ENCOUNTER 2019-08-11 16:14 | Observation (INO) | payer OTHER ==
[2019-08-11] MEDS ORDERED: SODIUM CHLORIDE 0.9% 1,000 ML IV STA (16:43)
[2019-08-11 16:49] LABS: Basophils # (A) 0.1 k/uL (0-0.2); Basophils % (A) 2 %; Eosinophils # (A) 0.2 k/uL (0-0.7); Eosinophils % (A) 3 %; HCT 45.2 % (39.0-53.0); HGB 15.6 gm/dL (13.0-17.5); Lymphocytes # (A) 0.8 k/uL (1.0-4.8); Lymphocytes % (A) 17 %; MCH 30.3 pg (25.0-35.0); MCHC 34.6 g/dL (31.0-37.0); MCV 87.7 fL (80.0-100.0); Mean Platelet Volume 6.9; Monocytes # (A) 0.3 k/uL (0-1.0); Monocytes % (A) 7 %; Neutrophils # (A) 3.3 k/uL (1.3-7.7); Neutrophils % (A) 70 %; Platelet Count 141 k/uL (150-450); RBC 5.15 m/uL (4.30-5.90); RDW 13.8 % (11.5-15.5); WBC 4.7 k/uL (3.8-10.6)
[2019-08-11 16:57] LABS: Partial Thromboplastin Time 25.9 sec (22.0-30.0); Prothrombin Time 10.4 sec (9.0-12.0)
[2019-08-11 16:59] LABS: ALT 133 U/L (4-49); AST 86 U/L (17-59); African American GFR (CKD) >90 (>60 ml/min/1.73 sqM); Albumin 4.3 g/dL (3.5-5.0); Alkaline Phosphatase 370 U/L (38-126); Anion Gap 10 mmol/L; Blood Urea Nitrogen 22 mg/dL (9-20); Calcium 9.5 mg/dL (8.4-10.2); Carbon Dioxide 25 mmol/L (22-30); Chloride 100 mmol/L (98-107); Glucose 104 mg/dL (74-99); Non-African American GFR(CKD) >90 (>60 ml/min/1.73 sqM); Potassium 4.1 mmol/L (3.5-5.1); Sodium 135 mmol/L (137-145); Total Protein 7.9 g/dL (6.3-8.2)
--- NOTE | 2019-08-11 17:10 | ED ---
General Adult HPI - General Chief complaint: Neuro Symptoms/Deficit Stated complaint: right arm numbness Time Seen by Provider: 08/11/19 16:32 Source: patient, RN notes reviewed Mode of arrival: ambulatory - History of Present Illness Initial comments: Patient is a pleasant 54-year-old male presenting to the emergency department with concerns for right arm problems. Onset of symptoms was yesterday afternoon around 2:00. Symptoms were worse when he woke up this morning. Symptoms are starting to improve however not back to normal. Patient complains of difficulty with coordination of his right arm. Patient also states there is some mild blurry vision of the right eye. Patient also complains of some paresthesias of the right arm. No history of similar symptoms previous. Patient is a liver transplant patient in 2016. Patient states he was recently seen by his liver doctor and put on steroids and then told everything was okay. Patient did have transplant secondary to history of hepatitis C - Related Data Home Medications Medication Instructions Recorded Confirmed Tacrolimus [Prograf] 2 mg PO BID 08/30/16 02/12/19 oxyCODONE HCL [oxyCODONE HCL (IR)] 15 mg PO BID PRN 02/12/19 02/12/19 Allergies Allergy/AdvReac Type Severity Reaction Status Date / Time No Known Allergies Allergy Verified 08/11/19 16:27 Review of Systems ROS Statement: Those systems with pertinent positive or pertinent negative responses have been documented in the HPI. ROS Other: All systems not noted in ROS Statement are negative. Constitutional: Denies: fever Eyes: Reports: as per HPI, vision change. Denies: eye pain ENT: Denies: ear pain Respiratory: Denies: cough Cardiovascular: Denies: chest pain Endocrine: Denies: fatigue Gastrointestinal: Denies: abdominal pain, nausea, vomiting Genitourinary: Denies: dysuria Musculoskeletal: Denies: back pain Skin: Denies: rash Neurological: Reports: weakness, paresthesias. Denies: headache, confusion Past Medical History Past Medical History: GI Bleed, Liver Disease Additional Past Medical History / Comment(s): Hepatitis C, cirrhosis, appendicitis, anemia alcoholic cirrhosis/ refractory ASCITIES, past c-diff 07-15-15, ABD HERNIA, PVD, varices, recurrent Right pleural effusion. THORACENTESIS 02/15/15 History of Any Multi-Drug Resistant Organisms: C-DIFF Date of last positivie culture/infection: 07/15/2014 MDRO Source:: previous admission Past Surgical History: Appendectomy Additional Past Surgical History / Comment(s): multiple paracentesis, variceal banding, EGDAdditional Medical Hx: Hepatitis C; Cirrhosis, multiple t horacentesis,TIPS procedure liver transplant, lung surgery, "shattered rt ankle after falling 3 story roof-has plate/akil,screws" Past Anesthesia/Blood Transfusion Reactions: No Reported Reaction Additional Past Anesthesia/Blood Transfusion Reaction / Comment(s): HAS HAD BLOOD TRANSFUSIONS-NO REACTION Past Psychological History: No Psychological Hx Reported Smoking Status: Current every day smoker Past Alcohol Use History: None Reported Past Drug Use History: Marijuana - Past Family History Mother Family Medical History: CVA/TIA, Myocardial Infarction ([place]) Additional Family Medical History / Comment(s): currently alive and 90 years old Father Family Medical History: No Reported History Additional Family Medical History / Comment(s): from car accident General Exam Limitations: no limitations General appearance: alert, in no apparent distress Head exam: Present: normocephalic Eye exam: Present: normal appearance, PERRL, EOMI ENT exam: Present: normal oropharynx Neck exam: Present: normal inspection Respiratory exam: Present: normal lung sounds bilaterally Cardiovascular Exam: Present: regular rate, normal rhythm GI/Abdominal exam: Present: soft. Absent: tenderness Extremities exam: Present: normal inspection Neurological exam: Present: alert, CN II-XII intact Expanded Neurological exam: Present: protecting the airway Speech: Present: fluid speech Cranial nerves: EOM's Intact: Normal, Facial Sensation: Normal Sensory exam: Upper Extremity Light Touch: Abnormal Right, Lower Extremity Light Touch: Normal Motor strength exam: RUE: 3, LUE: 5, RLE: 5, LLE: 5 Eye Response: (4) open spontaneously Motor Response: (6) obeys commands Verbal Response: (5) oriented Psychiatric exam: Present: normal affect, normal mood Skin exam: Present: other (Right lateral upper eyebrow with subcutaneous nodule that is somewhat firm, approximately 1 x 1 cm) Course Vital Signs 08/11/19 16:25 Temperature 97.9 F Pulse Rate 96 Respiratory 19 Rate Blood Pressure 176/108 O2 Sat by Pulse 96 Oximetry EKG Findings - EKG Comments: EKG Findings:: Sinus rhythm with sinus arrhythmia, rate 83. [place] 120. QRS 94. QT 376. QTc 441. Normal axis. Atrial enlargement. No acute ST change. Medical Decision Making - Medical Decision Making Patient reevaluated and does have slight improvement of strength of right arm. Patient updated on results and plan. Case was discussed in detail with Dr. zaragoza, who will admit her for hospital call. - Lab Data Result diagrams: 08/11/19 16:34 08/11/19 16:34 Lab Results 08/11/19 08/11/19 08/11/19 Range/Units 16:34 16:34 16:34 WBC 4.7 (3.8-10.6) k/uL RBC 5.15 (4.30-5.90) m/uL Hgb 15.6 (13.0-17.5) gm/dL Hct 45.2 (39.0-53.0) % MCV 87.7 (80.0-100.0) fL MCH 30.3 (25.0-35.0) pg MCHC 34.6 (31.0-37.0) g/dL RDW 13.8 (11.5-15.5) % Plt Count 141 L (150-450) k/uL Neutrophils % 70 % Lymphocytes % 17 % Monocytes % 7 % Eosinophils % 3 % Basophils % 2 % Neutrophils # 3.3 (1.3-7.7) k/uL Lymphocytes # 0.8 L (1.0-4.8) k/uL Monocytes # 0.3 (0-1.0) k/uL Eosinophils # 0.2 (0-0.7) k/uL Basophils # 0.1 (0-0.2) k/uL PT 10.4 (9.0-12.0) sec INR 1.0 (<1.2) APTT 25.9 (22.0-30.0) sec Sodium 135 L (137-145) mmol/L Potassium 4.1 (3.5-5.1) mmol/L Chloride 100 (98-107) mmol/L Carbon Dioxide 25 (22-30) mmol/L Anion Gap 10 mmol/L BUN 22 H (9-20) mg/dL Creatinine 0.76 (0.66-1.25) mg/dL Est GFR (CKD-EPI)AfAm >90 (>60 ml/min/1.73 sqM) Est GFR (CKD-EPI)NonAf >90 (>60 ml/min/1.73 sqM) Glucose 104 H (74-99) mg/dL Calcium 9.5 (8.4-10.2) mg/dL Total Bilirubin 3.0 H (0.2-1.3) mg/dL AST 86 H (17-59) U/L ALT 133 H (4-49) U/L Alkaline Phosphatase 370 H (38-126) U/L Troponin I (0.000-0.034) ng/mL Total Protein 7.9 (6.3-8.2) g/dL Albumin 4.3 (3.5-5.0) g/dL 08/11/19 Range/Units 16:34 WBC (3.8-10.6) k/uL RBC (4.30-5.90) m/uL Hgb (13.0-17.5) gm/dL Hct (39.0-53.0) % MCV (80.0-100.0) fL MCH (25.0-35.0) pg MCHC (31.0-37.0) g/dL RDW (11.5-15.5) % Plt Count (150-450) k/uL Neutrophils % % Lymphocytes % % Monocytes % % Eosinophils % % Basophils % % Neutrophils # (1.3-7.7) k/uL Lymphocytes # (1.0-4.8) k/uL Monocytes # (0-1.0) k/uL Eosinophils # (0-0.7) k/uL Basophils # (0-0.2) k/uL PT (9.0-12.0) sec INR (<1.2) APTT (22.0-30.0) sec Sodium (137-145) mmol/L Potassium (3.5-5.1) mmol/L Chloride (98-107) mmol/L Carbon Dioxide (22-30) mmol/L Anion Gap mmol/L BUN (9-20) mg/dL Creatinine (0.66-1.25) mg/dL Est GFR (CKD-EPI)AfAm (>60 ml/min/1.73 sqM) Est GFR (CKD-EPI)NonAf (>60 ml/min/1.73 sqM) Glucose (74-99) mg/dL Calcium (8.4-10.2) mg/dL Total Bilirubin (0.2-1.3) mg/dL AST (17-59) U/L ALT (4-49) U/L Alkaline Phosphatase (38-126) U/L Troponin I 0.013 (0.000-0.034) ng/mL Total Protein (6.3-8.2) g/dL Albumin (3.5-5.0) g/dL - Radiology Data Radiology results: report reviewed (Computed tomography scan of the head reveals no acute process), image reviewed (Chest x-ray shows hyperinflation, no acute lung disease.) Disposition Clinical Impression: Cerebrovascular accident (CVA) Disposition: ADMITTED IP TO THIS HOSP Is patient prescribed a controlled substance at d/c from ED?: No Referrals: Davi Matute DO [Doctor of Osteopathic Medicine] - 1-2 days Decision Time: 17:44
--- NOTE | 2019-08-11 17:27 | CT ---
EXAMINATION TYPE: CT brain wo con for TPA DATE OF EXAM: 08/11/2019 COMPARISON: None HISTORY: Inability to move right arm with numbness. CT DLP: 1173.4 mGycm Automated exposure control for dose reduction was used. Multiple axial sections were obtained of the brain without contrast. Ventricles of normal size. There is no mass effect nor midline shift. There is no sign of intracrania l hemorrhage. Calvarium is intact. There is no sign of cerebral edema. IMPRESSION: Negative unenhanced head CT scan.
--- NOTE | 2019-08-11 17:29 | XR ---
EXAMINATION TYPE: XR chest 2V DATE OF EXAM: 08/11/2019 COMPARISON: 05/20/2018 HISTORY: Dizziness TECHNIQUE: 2 views FINDINGS: Heart and mediastinum are normal. Lungs are clear. Diaphragm is normal. Bony thorax is inta ct. There is mild pulmonary emphysema. IMPRESSION: COPD. No acute lung disease. No change.
[2019-08-11] MEDS ORDERED: ASPIRIN 325 MG TAB PO STA (17:44)
[2019-08-11] MEDS: SODIUM CHLORIDE 0.9% 1,000 ML IV SCH (18:01)
[2019-08-11] MEDS ORDERED: GABAPENTIN 400 MG CAP PO PRN (19:06)
[2019-08-11] MEDS ORDERED: ACETAMINOPHEN TAB 325 MG TAB PO PRN (19:07)
[2019-08-11] MEDS ORDERED: ONDANSETRON 4 MG/2 ML VIAL IVP PRN (19:07)
--- NOTE | 2019-08-11 20:48 | US ---
EXAMINATION TYPE: US carotid duplex BILAT DATE OF EXAM: 08/11/2019 COMPARISON: CT CLINICAL HISTORY: Stenosis. Stenosis. Dizziness and headache per patient. EXAM MEASUREMENTS: RIGHT: Peak Systolic Velocity (PSV) cm/sec ----- Right CCA: 59.8 ----- Right ICA: 93.6 ----- Right ECA: 94.9 ICA/CCA ratio: 1.6 RIGHT: End Diastole cm/sec ----- Right CCA: 18.8 ----- Right ICA: 47.0 ----- Right ECA: 21.1 LEFT: Peak Systolic Velocity (PSV) cm/sec ----- Left CCA: 81.0 ----- Left ICA: 79.5 ----- Left ECA: 81.7 ICA/CCA ratio: 1.0 LEFT: End Diastole cm/sec ----- Left CCA: 30.5 ----- Left ICA: 37.7 ----- Left ECA: 17.9 VERTEBRALS (direction of flow): Right Vertebral: Antegrade Left Vertebral: Antegrade Rhythm: Normal Intimal thickening seen bilaterally. Plaque is seen in the right bulb, right ICA, and left bulb. No e levated velocities obtained. Hypoechoic area with hyperechoic center seen left neck measurin.2 x 0.5 x 0.3 cm. IMPRESSION: There is antegrade flow in the vertebral arteries. The images and measurements suggest u p to 25% stenosis in both internal carotid arteries. Criteria for Assigning % of Stenosis / Diameter reduction (Estimation based on the indirect measurements of the internal carotid artery velocities (ICA PSV). 1. Normal (no stenosis)=ICA PSV < 125 cm/s: ratio < 2.0: ICA EDV<40 cm/s. 2. Less than 50% stenosis=ICA PSV < 125 cm/s: ratio < 2.0: ICA EDV<40 cm/s. 3. 50 to 69% stenosis=ICA PSV of 125 to 230 cm/s: ration 2.0 ? 4.0: ICA EDV 40-100 cm/s. 4. Greater than 70% stenosis to near occlusion= ICA PSV > 230 cm/s: ratio > 4.0: ICA EDV > 100 cm/s. 5. Near occlusion= ICA PSV velocities may be low or undetectable: variable ratio and ICA EDV. 6. Total occlusion=unable to detect flow.
[2019-08-11] MEDS: DOCUSATE 100 MG CAP PO SCH (21:07)
[2019-08-11] MEDS: MYCOPHENOLATE MOFETIL 500 MG TAB PO SCH (21:07)
[2019-08-11] MEDS: MAGNESIUM OXIDE 400 MG TAB PO SCH (21:07)
[2019-08-11] MEDS: TACROLIMUS 1 MG CAP PO SCH (21:07)
[2019-08-11] MEDS: FLUTICASONE 110 MCG INHALER INHALATION SCH (21:09)
[2019-08-12 02:40] LABS: Cholesterol 219 mg/dL (<200); HDL Cholesterol 101 mg/dL (40-60); LDL Cholesterol,Calculated 101 mg/dL (0-99); Triglycerides 84 mg/dL (<150)
[2019-08-12] MEDS: SODIUM CHLORIDE 0.9% 1,000 ML IV SCH (07:44)
[2019-08-12 08:31] VITALS: BP 160/85; PULSE 60; TEMP 96.4
[2019-08-12] MEDS: FLUTICASONE 110 MCG INHALER INHALATION SCH (08:43)
[2019-08-12] MEDS: NICOTINE 21MG/24HR PATCH TRANSDERM SCH ×2 (08:52→09:09)
[2019-08-12] MEDS: MYCOPHENOLATE MOFETIL 500 MG TAB PO SCH (08:53)
[2019-08-12] MEDS: MAGNESIUM OXIDE 400 MG TAB PO SCH (08:53)
[2019-08-12] MEDS: TACROLIMUS 1 MG CAP PO SCH (08:54)
[2019-08-12] MEDS ORDERED: ASPIRIN 325 MG TAB PO SCH (09:00)
[2019-08-12] MEDS ORDERED: predniSONE 20 MG TAB PO SCH (09:00)
[2019-08-12] MEDS: DOCUSATE 100 MG CAP PO SCH (09:07)
[2019-08-12 09:09] VITALS: RESP 16
--- NOTE | 2019-08-12 09:43 | P.HPIM ---
History of Present Illness This is a pleasant 54 years old male with past medical history of hepatitis C, cirrhosis, GI bleed, ascites, C. diff in 2015, peripheral vascular disease, recurrent right pleural effusion. He presents because of weakness in his right upper extremity, he woke up about 2:00 in the afternoon of from sleep complaining of from severe weakness in his right upper extremity from the shoulder down associated with numbness also from the shoulder down to the hand. Patient also had right-sided headache, she said it is significantly improved only very mild this morning and he decided approximately weakness and numbness significantly improved by 90% upon patient opinion, no chest pain or dyspnea Patient was complaining of from blurred vision in the right eye for about 2 weeks some exertional dyspnea. Patient smokes about half pack per day, cutting down from 2 packs per day, patient is counseled and he agrees to quit, he agrees to nicotine patch. He denies alcohol or illicit tracts Patient was not on aspirin at home, it was taken off. Patient was restarted on aspirin on admission Patient has history of liver transplant and he confirmed to me he is on CellCept, tacrolimus and prednisone 40 mg also patient follow-up with [facility] team. Last time he saw them about 2-3 days ago at the time everything is okay, he supposed to go on follow-up with them in 2 weeks Vitals stable however patient had a fever of 100.4 AST is 86, compared to 222 on 07/2019, ALT is 133 compared to 161 on 07/2019. Carotid Doppler showing only 25% stenosis in both carotid arteries. EKG showing normal sinus rhythm at 83 with marked sinus arrhythmia and no significant ST-T changes and QTC of 441. Chest x-ray: No acute process, COPD. Negative brain CT for an acute event by radiologist. In the emergency room patient got aspirin 325 mg and given some normal saline fluids at 100 mL per hour Review of Systems CONSTITUTIONAL: No fever, no malaise, no fatigue. HEENT: No recent visual problems or hearing problems. Denied any sore throat. CARDIOVASCULAR: No orthopnea, PND, no palpitations, no syncope. PULMONARY: No shortness of breath, no cough, no hemoptysis. GASTROINTESTINAL: No diarrhea, no nausea, no vomiting, no abdominal pain. Normoactive bowel sounds. NEUROLOGICAL: No headaches, no weakness, no numbness. HEMATOLOGICAL: Denies any bleeding or petechiae. GENITOURINARY: Denies any burning micturition, frequency, or urgency. MUSCULOSKELETAL/RHEUMATOLOGICAL: Denies any joint pain, swelling, or any muscle pain. ENDOCRINE: Denies any polyuria or polydipsia. Past Medical History Past Medical History: GI Bleed, Liver Disease Additional Past Medical History / Comment(s): Hepatitis C, cirrhosis, appendicitis, anemia alcoholic cirrhosis/ refractory ASCITIES, past c-diff 07-15-14, ABD HERNIA, PVD, varices, recurrent Right pleural effusion. THORACENTESIS 02/15/15 History of Any Multi-Drug Resistant Organisms: C-DIFF Date of last positivie culture/infection: 07/15/2014 MDRO Source:: previous admission Past Surgical History: Appendectomy Additional Past Surgical History / Comment(s): multiple paracentesis, variceal banding, EGDAdditional Medical Hx: Hepatitis C; Cirrhosis, multiple thorac entesis,TIPS procedure liver transplant, lung surgery, "shattered rt ankle after falling 3 story roof-has plate/akil,screws" Past Anesthesia/Blood Transfusion Reactions: No Reported Reaction Additional Past Anesthesia/Blood Transfusion Reaction / Comment(s): HAS HAD BLOOD TRANSFUSIONS-NO REACTION Past Psychological History: No Psychological Hx Reported Additional Psychological History / Comment(s): PT STATED HE LIVES With a roommate HAS 1 PET CAT. IS 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 NO OUTSIDE SERVICES . Smoking Status: Current every day smoker Past Alcohol Use History: None Reported Additional Past Alcohol Use History / Comment(s): pt states he smokes a half of a pack a day. Past Drug Use History: Marijuana Additional Drug Use History / Comment(s): pt stated past heroine, cocaine and marijuana use. QUIT 2016 - Past Family History Mother Family Medical History: CVA/TIA, Myocardial Infarction ([place]) Additional Family Medical History / Comment(s): currently alive and 90 years old Father Family Medical History: No Reported History Additional Family Medical History / Comment(s): from car accident Medications and Allergies Home Medications Medication Instructions Recorded Confirmed Type Tacrolimus [Prograf] 3 mg PO BID 08/30/16 08/11/19 History Albuterol Inhaler [Ventolin Hfa 1 - 2 puff INHALATION RT-Q6H PRN 08/11/19 08/11/19 History Inhaler] Beclomethasone Dip 80 Mcg/Puff 1 puff INHALATION RT-BID 08/11/19 08/11/19 History [Qvar 80 mcg] Buprenorphine HCl/Naloxone HCl 1 film SL AC-BID 08/11/19 08/11/19 History [Suboxone 8 mg-2 mg Sl Film] Docusate Sodium [Dok] 100 mg PO BID 08/11/19 08/11/19 History Gabapentin 800 mg PO TID PRN 08/11/19 08/11/19 History Magnesium Oxide 400 mg PO BID 08/11/19 08/11/19 History Mycophenolate Mofetil [Cellcept] 1,500 mg PO BID 08/11/19 08/11/19 History predniSONE [Deltasone] 40 mg PO DAILY 08/11/19 08/11/19 History Allergies Allergy/AdvReac Type Severity Reaction Status Date / Time No Known Allergies Allergy Verified 08/11/19 18:12 Physical Exam Vitals: Vital Signs Temp Pulse Pulse Resp BP BP Pulse Ox 08/12/19 04:00 97.7 F 61 18 160/90 100 08/12/19 01:21 100.4 F H 08/12/19 00:00 98.2 F 74 18 152/86 100 08/11/19 20:00 81 16 08/11/19 18:03 98.2 F 81 16 151/84 100 08/11/19 17:48 78 18 143/63 99 08/11/19 16:25 97.9 F 96 19 176/108 96 Intake and Output 08/11/19 08/12/19 08/12/19 22:59 06:59 14:59 Output Total 600 Balance -600 Output: Urine 600 Other: # Voids 3 # Bowel Movements 1 Weight 52.617 kg 52.9 kg GENERAL: The patient is alert and oriented x3, not in any acute distress. Well developed, well nourished. HEENT: Pupils are round and equally reacting to light. EOMI. No scleral icterus. No conjunctival pallor. Normocephalic, atraumatic. No pharyngeal erythema. No thyromegaly. CARDIOVASCULAR: S1 and S2 present. No murmurs, rubs, or gallops. PULMONARY: Chest is clear to auscultation, no wheezing or crackles. ABDOMEN: Soft, nontender, nondistended, normoactive bowel sounds. No palpable organomegaly. MUSCULOSKELETAL: No joint swelling or deformity. EXTREMITIES: No cyanosis, clubbing, or pedal edema. -NEUROLOGICAL: Cranial nerves are grossly intact. Right upper extremity is weak and numb. Meningeal signs are absent SKIN: No rashes. No petechiae Results CBC & Chem 7: 08/11/19 16:34 08/11/19 16:34 Labs: Abnormal Lab Results - Last 24 Hours (Table) 08/11/19 08/11/19 08/11/19 Range/Units 16:34 16:34 16:34 Plt Count 141 L (150-450) k/uL Lymphocytes # 0.8 L (1.0-4.8) k/uL Sodium 135 L (137-145) mmol/L BUN 22 H (9-20) mg/dL Glucose 104 H (74-99) mg/dL Total Bilirubin 3.0 H (0.2-1.3) mg/dL AST 86 H (17-59) U/L ALT 133 H (4-49) U/L Alkaline Phosphatase 370 H (38-126) U/L Cholesterol 219 H (<200) mg/dL LDL Cholesterol, Calc 101 H (0-99) mg/dL HDL Cholesterol 101 H (40-60) mg/dL Thrombosis Risk Factor Assmnt - Choose All That Apply Each Factor Represents 1 point: Age 41-60 years Each Risk Factor Represents 3 Points: Family history of DVT/PE Thrombosis Risk Factor Assessment Total Risk Factor Score: 4 Thrombosis Risk Factor Assessment Level: Moderate Risk Assessment and Plan Assessment: Right arm weakness suspicious for acute stroke versus TIA Right eye blurred vision Low-grade fever Nicotine dependence Liver cirrhosis, follows up with [facility] Possible COPD, not in acute exacerbations Ascites Peripheral vascular disease History of hep C History of recurrent right pleural effusion History of C. diff Plan: This is a pleasant 54 years old male who presents with possible stroke. Consult neurology and follow-up recommendation. Continue with aspirin. Consult ophthalmology for blurred vision. Also consult infectious disease for low grade fever in immunocompromised patient and check pro-calcitonin, lactic acid and other labs Labs and medication were reviewed.. Continue same treatment. Continue with symptomatic treatment. Resume home medication. Monitor lytes and vitals. DVT and GI prophylaxis. Further recommendations of the clinical course of the patient DVT prophylaxis: Subcutaneous heparin GI Prophylaxis: Pepcid PT/OT: Pending Prognosis is guarded
[2019-08-12] MEDS ORDERED: HEPARIN SODIUM,PORCINE 5,000 UNIT/ML 1 ML VIAL SQ SCH (09:45)
--- NOTE | 2019-08-12 11:00 | ECHOF ---
Referral Reason:Thrombus MEASUREMENTS -------- HEIGHT: 182.9 cm WEIGHT: 52.6 kg BP: IVSd: 1.0 cm (0.6 - 1.1) LVIDd: 4.2 cm (3.9 - 5.3) LVPWd: 1.0 cm (0.6 - 1.1) IVSs: 1.5 cm LVIDs: 1.9 cm LVPWs: 1.6 cm LAESV Index (A-L): 15.93 ml/m Ao Diam: 3.0 cm (2.0 - 3.7) AV Cusp: 1.6 cm (1.5 - 2.6) LA Diam: 3.3 cm (2.7 - 3.8) MV EXCURSION: 21.171 mm (> 18.000) MV EF SLOPE: 120 mm/s (70 - 150) EPSS: 2.2 cm MV E [place]: 0.71 m/s MV DecT: 223 ms MV A [place]: 0.64 m/s MV E/A Ratio: 1.12 AR PHT: 591 ms RAP: 5.00 mmHg RVSP: 14.95 mmHg FINDINGS -------- Sinus rhythm. This was a technically good study. The left ventricular size is normal. Left ventricular wall thickness is normal. Overall left vent ricular systolic function is normal with, an EF between 55 - 60 %. The diastolic filling pattern is normal for the age of the patient 6.93. The right ventricle is normal in size. The left atrial size is normal. Normal LA size by volume 22+/-6 ml/m2. The right atrial size is normal. The aortic valve is trileaflet and appears structurally normal. The mitral valve is normal. The mitral valve leaflets are mildly thickened. There is trace mitral regurgitation. The tricuspid valve appears structurally normal. Trace tricuspid regurgitation present. Right ana tricular systolic pressure is normal at < 35 mmHg. There is no pulmonic regurgitation present. The aortic root size is normal. Normal inferior vena cava with normal inspiratory collapse consistent with estimated right atrial pre ssure of 5 mmHg. There is a trivial pericardial effusion present. CONCLUSIONS -------- 1. Sinus rhythm. 2. This was a technically good study. 3. The left ventricular size is normal. 4. Left ventricular wall thickness is normal. 5. Overall left ventricular systolic function is normal with, an EF between 55 - 60 %. 6. The diastolic filling pattern is normal for the age of the patient 6.93 7. The right ventricle is normal in size. 8. The left atrial size is normal. 9. Normal LA size by volume 22+/-6 ml/m2. 10. The right atrial size is normal. 11. The aortic valve is trileaflet and appears structurally normal. 12. The mitral valve is normal. 13. The mitral valve leaflets are mildly thickened. 14. There is trace mitral regurgitation. 15. The tricuspid valve appears structurally normal. 16. Trace tricuspid regurgitation present. 17. Right ventricular systolic pressure is normal at < 35 mmHg. 18. There is no pulmonic regurgitation present. 19. The aortic root size is normal. 20. Normal inferior vena cava with normal inspiratory collapse consistent with estimated right atrial pressure of 5 mmHg. 21. There is a trivial pericardial effusion present. EMPLOYMENT SERVICE SPECIALIST: Twyla Jimenez RDCS
[2019-08-12 11:43] LABS: Magnesium 1.7 mg/dL (1.6-2.3)
[2019-08-12 11:48] LABS: Prothrombin Time 10.3 sec (9.0-12.0)
--- NOTE | 2019-08-12 12:23 | P.CNNES ---
History of Present Illness Consult date: 08/12/19 Reason for Consult: Concern for stroke Chief complaint: RUE numbness History of Present Illness: HISTORY OF PRESENT ILLNESS: Thank you for allowing me to evaluate Mr. Ben Floyd. Mr. Floyd is a 54 year-old man with PMhx of hepatitis C and cirrhosis, s/p transplant in 2016 on Tacrolimus, presented to [facility] for difficulty with RUE coordination and numbness and mild blurry vision of his R eye. Patient states that he's gonna go to [facility] as this hospital does not have his pain medication, suboxone, without which he can have bad withdrawals and cause issues with his liver transplant. Patient got his liver transplant done in [facility], and will be going there for further care. He did not want to wait for [id number] transfer. Patient states that he started having R arm weakness and numbness yesterday, and he still has these symptoms. Denies any similar episodes in the past. Denies any recent sickness although he has lost ~30 pounds in the last month or two. Patient has been having good appetite, no fevers, at times has night sweats but not significantly. Patient has been compliant with all his meds, but he ran out his pain med, suboxone, 2 days ago and wanted a refill, but the MD recommended patient to come to ED. Patient understands that he absolutely needs stroke work-up and management. Patient will not be driving but will be taking a cab over to his friend's and asking his friend to take him out to [facility]. PAST MEDICAL HISTORY: hepatitis C and cirrhosis, s/p transplant in 2016 PAST SURGICAL HISTORY: appendectomy, TIPS procedure, variceal banding HOME MEDICATIONS: Tacrolimus, oxycodone, ALLERGIES: NKDA SOCIAL HISTORY: Current everyday smoker, endorses marijuana use FAMILY HISTORY: Mother with stroke and [place]. REVIEW OF SYSTEMS: The 14 systems are reviewed and no additional points are identified compared to the review of systems documented history and physical PHYSICAL EXAMINATION: VITAL SIGNS: T 96.4 HR 60 RR 18 BP 160/85 O2 sat 98% on RA GEN.: almost cachectic, NAD, frustrated but somewhat cooperative HEENT: NCAT, scleral icterus SKIN AND EXTREMITIES: Warm to touch, no edema NEURO: MENTAL STATUS: Patient alert and oriented to self, place, time. Able to name the current president. Speech fluent, following all commands readily. No right and left disorientation, neglect. Exam limited as patient wanting to leave [facility]. CRANIAL NERVES II THROUGH XII: II: Pupils are equal and reactive to light symmetrically. Visual arreaga are intact to confrontation. III, IV, : No ptosis. Extraocular movements full. No nystagmus. VII. No clear facial asymmetry. XI: Asymmetric shoulder shrug R lower than L XII: Tongue midline without fasciculation or atrophy. MOTOR: No tremor. RUE drift. GAIT: Narrow-based and stable. Antalgic gait, states has been walking the same for a long time as patient with orthopedic surgery in his R leg and he needs to walk on his R heel. DIAGNOSTIC TESTING: LABORATORY: WBC 4.7 Hgb 15.6 Platelet 141 Na 135 K 4.1 INR 1.0 Cl 100 CO2 25 BUN 22 Cr 0.76 Glucose 104 AST 86 ALT 133 AlkPhos 370 Total Cholesterol 219 LDL 101 TG 84 IMAGING: CT Head w/o contrast 08/11/2019: Negative heat CT EKG 08/11/2019: SR with marked sinus arrhythmia with premature supraventricular complexes. Biatrial enlargement. Carotid Doppler 08/11/2019: Antegrade flow in vertebral arteries. 25% stenosis in both ICAs ASSESSMENT/RECOMMENDATIONS: 54 year-old man with PMhx of hepatitis C and cirrhosis, s/p transplant in 2016 on Tacrolimus, presented to [facility] for difficulty with RUE coordination and numbness and mild blurry vision of his R eye. Patient needs stroke work-up and management, but patient has decided to leave [place]. Exam remarkable for RUE weakness and numbness. Past Medical History Past Medical History: GI Bleed, Liver Disease Additional Past Medical History / Comment(s): Hepatitis C, cirrhosis, appendicitis, anemia alcoholic cirrhosis/ refractory ASCITIES, past c-diff 07-15-14, ABD HERNIA, PVD, varices, recurrent Right pleural effusion. THORACENTESIS 02/15/15 History of Any Multi-Drug Resistant Organisms: C-DIFF Date of last positivie culture/infection: 07/15/2014 MDRO Source:: previous admission Past Surgical History: Appendectomy Additional Past Surgical History / Comment(s): multiple paracentesis, variceal banding, EGDAdditional Medical Hx: Hepatitis C; Cirrhosis, multiple thora centesis,TIPS procedure liver transplant, lung surgery, "shattered rt ankle after falling 3 story roof-has plate/akil,screws" Past Anesthesia/Blood Transfusion Reactions: No Reported Reaction Additional Past Anesthesia/Blood Transfusion Reaction / Comment(s): HAS HAD BLOOD TRANSFUSIONS-NO REACTION Past Psychological History: No Psychological Hx Reported Additional Psychological History / Comment(s): PT STATED HE LIVES With a roommate HAS 1 PET CAT. IS 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 NO OUTSIDE SERVICES . Smoking Status: Current every day smoker Past Alcohol Use History: None Reported Additional Past Alcohol Use History / Comment(s): pt states he smokes a half of a pack a day. Past Drug Use History: Marijuana Additional Drug Use History / Comment(s): pt stated past heroine, cocaine and marijuana use. QUIT 2016 - Past Family History Mother Family Medical History: CVA/TIA, Myocardial Infarction ([place]) Additional Family Medical History / Comment(s): currently alive and 90 years old Father Family Medical History: No Reported History Additional Family Medical History / Comment(s): from car accident Medications and Allergies Home Medications Medication Instructions Recorded Confirmed Type Tacrolimus [Prograf] 3 mg PO BID 08/30/16 08/11/19 History Albuterol Inhaler [Ventolin Hfa 1 - 2 puff INHALATION RT-Q6H PRN 08/11/19 08/11/19 History Inhaler] Beclomethasone Dip 80 Mcg/Puff 1 puff INHALATION RT-BID 08/11/19 08/11/19 History [Qvar 80 mcg] Buprenorphine HCl/Naloxone HCl 1 film SL AC-BID 08/11/19 08/11/19 History [Suboxone 8 mg-2 mg Sl Film] Docusate Sodium [Dok] 100 mg PO BID 08/11/19 08/11/19 History Gabapentin 800 mg PO TID PRN 08/11/19 08/11/19 History Magnesium Oxide 400 mg PO BID 08/11/19 08/11/19 History Mycophenolate Mofetil [Cellcept] 1,500 mg PO BID 08/11/19 08/11/19 History predniSONE [Deltasone] 40 mg PO DAILY 08/11/19 08/11/19 History Allergies Allergy/AdvReac Type Severity Reaction Status Date / Time No Known Allergies Allergy Verified 08/11/19 18:12 Physical Examination - Vital Signs Vital Signs: Vital Signs Temp Pulse Pulse Resp BP BP Pulse Ox 08/12/19 08:00 96.4 F L 60 16 160/85 98 08/12/19 04:00 97.7 F 61 18 160/90 100 08/12/19 01:21 100.4 F H 08/12/19 00:00 98.2 F 74 18 152/86 100 08/11/19 20:00 81 16 08/11/19 18:03 98.2 F 81 16 151/84 100 08/11/19 17:48 78 18 143/63 99 08/11/19 16:25 97.9 F 96 19 176/108 96 Intake and Output 08/11/19 08/12/19 08/12/19 22:59 06:59 14:59 Intake Total 360 Output Total 600 Balance -600 360 Intake: Oral 360 Output: Urine 600 Other: # Voids 3 # Bowel Movements 1 Weight 52.617 kg 52.9 kg Results - Laboratory Findings CBC and BMP: 08/11/19 16:34 08/11/19 16:34 Abnormal Lab Findings: Abnormal Labs 08/11/19 08/11/19 08/11/19 16:34 16:34 16:34 Plt Count 141 L Lymphocytes # 0.8 L Sodium 135 L BUN 22 H Glucose 104 H Total Bilirubin 3.0 H AST 86 H ALT 133 H Alkaline Phosphatase 370 H Cholesterol 219 H LDL Cholesterol, Calc 101 H HDL Cholesterol 101 H
[2019-08-12 20:18] LABS: Hemoglobin A1C 4.1 % (4.0-6.0)
[2019-08-12] MEDS ORDERED: FAMOTIDINE 20 MG/2 ML VIAL IV SCH (21:00)
== END 2019-08-12 11:55 | disposition left against medical advice (07) ==
LOC: EC 16:14 → INTOOBSV 17:45 → 3SCARD 17:45 → UNDODISIN 08-12 11:55
PROVIDERS: ADMIT Internal Medicine; ATTEND Internal Medicine
DX: R20.0 Anesthesia of skin (principal); H53.8 Other visual disturbances; R27.8 Other lack of coordination; R06.09 Other forms of dyspnea; I65.23 Occlusion and stenosis of bilateral carotid arteries; R50.9 Fever, unspecified; K70.31 Alcoholic cirrhosis of liver with ascites; Z53.29 Procedure and treatment not carried out because of patient's decision for other reasons; Z94.4 Liver transplant status; Z86.19 Personal history of other infectious and parasitic diseases; I73.9 Peripheral vascular disease, unspecified; F17.210 Nicotine dependence, cigarettes, uncomplicated; Z82.49 Family history of ischemic heart disease and other diseases of the circulatory system; Z82.3 Family history of stroke; Z79.899 Other long term (current) drug therapy; Z79.51 Long term (current) use of inhaled steroids; Z79.52 Long term (current) use of systemic steroids
CPT/HCPCS: 99285; 36415; 94640; 93005; 93306; 97162; 92610; 92523; 80061; 80053; 84443; 83735; 84484; 85025; 85610 ×2; 85730; 87040; 83036; 84145; 71046; 93880; 70450; G0378 ×2; S4990; J7507 ×2; J7517 ×2; J7512

== ENCOUNTER → 2020-08-23 | Outpatient (CLI) | payer OTHER ==
[2020-08-24 01:29] LABS: Basophils # (A) 0.01 X 10*3/uL (0.00-0.10); Basophils % (A) 0.3 %; Eosinophils # (A) 0.13 X 10*3/uL (0.04-0.35); Eosinophils % (A) 3.3 %; HCT 45.8 % (39.6-50.0); HGB 15.4 g/dL (13.0-17.0); Lymphocytes % (A) 22.7 %; MCH 29.4 pg (27.0-32.0); MCHC 33.6 g/dL (32.0-37.0); MCV 87.6 fL (80.0-97.0); Mean Platelet Volume 10.9 fL (9.5-12.2); Monocytes # (A) 0.39 X 10*3/uL (0.20-1.00); Monocytes % (A) 9.8 %; Neutrophils # (A) 2.53 X 10*3/uL (1.80-7.70); Neutrophils % (A) 63.6 %; Platelet Count 144 X 10*3/uL (140-440); RBC 5.23 X 10*6/uL (4.40-5.60); RDW 13.5 % (11.5-14.5); WBC 3.97 X 10*3/uL (4.50-10.00)
[2020-08-24 03:44] LABS: African American GFR (CKD) 109.5 (60.0-200.0); Albumin 4.4 g/dL (3.80-4.90); Albumin/Globulin Ratio 1.83 (1.60-3.17); Anion Gap 11.3 mmol/L (4.00-12.00); BUN/Creat Ratio 21.11 Ratio (12.00-20.00); Bilirubin, Conjugated 0.6 mg/dL (0.20-0.40); Bilirubin,Unconjugated 0.6 mg/dL; Calcium 9.4 mg/dL (8.7-10.3); Carbon Dioxide 23.7 mmol/L (21.6-31.8); Globulin 2.4 g/dL (1.6-3.3); Magnesium 1.7 mg/dL (1.5-2.4); Non-African American GFR(CKD) 94.5 (60.0-200.0); Potassium 4.7 mmol/L (3.5-5.5); Total Bilirubin 1.2 mg/dL (0.2-1.2); Total Protein 6.8 g/dL (6.2-8.2)
== END | disposition home or self-care (01) ==
LOC: LABWHC1 15:42
PROVIDERS: ATTEND Internal Medicine Gastroenterology
DX: Z94.4 Liver transplant status (principal)
CPT/HCPCS: 36415; 80048; 80076; 80197; 82465; 83735; 85025

== ENCOUNTER 2022-01-28 14:50 | Emergency (ER) | payer OTHER ==
[2022-01-28 15:09] VITALS: BP 159/67; PULSE 87; RESP 18; TEMP 98.3
[2022-01-28] MEDS ORDERED: SODIUM CHLORIDE 0.9% 500 ML 500 ML IV STA (16:12)
[2022-01-28] MEDS ORDERED: HYDROmorphone 0.5 MG/0.5 ML SYRINGE IVP STA (16:12)
[2022-01-28 17:02] LABS: ALT 201 U/L (4-49); AST 283 U/L (17-59); African American GFR (CKD) >90 (>60 ml/min/1.73 sqM); Albumin 3.4 g/dL (3.5-5.0); Alkaline Phosphatase 1462 U/L (38-126); Amylase 54 U/L (30-110); Anion Gap 7 mmol/L; Blood Urea Nitrogen 15 mg/dL (9-20); Calcium 8.7 mg/dL (8.4-10.2); Carbon Dioxide 27 mmol/L (22-30); Chloride 102 mmol/L (98-107); Glucose 82 mg/dL (74-99); Lipase 146 U/L (23-300); Non-African American GFR(CKD) >90 (>60 ml/min/1.73 sqM); Sodium 136 mmol/L (137-145)
[2022-01-28 17:08] LABS: Appearance,Urine Clear (Clear); Bilirubin,Urine 4+ (Negative); Blood,Urine Negative (Negative); Color,Urine Dark Brown; Glucose,Urine (UA) Negative (Negative); Ketones,Urine Negative (Negative); Leukocyte Esterase,Urine Negative (Negative); Nitrite,Urine Negative (Negative); PH, Urine 6.5 (5.0-8.0); Protein,Urine Negative (Negative); Specific Gravity,Urine 1.016 (1.001-1.035)
[2022-01-28 17:17] LABS: Total Bilirubin 19.8 mg/dL (0.2-1.3); Total Protein 8.1 g/dL (6.3-8.2)
[2022-01-28 17:30] LABS: Anisocytosis Slight; Basophils % (A) 0 %; Eosinophils # (A) 0.1 k/uL (0-0.7); Eosinophils % (A) 1 %; HCT 40.5 % (39.0-53.0); HGB 12.7 gm/dL (13.0-17.5); Lymphocytes # (A) 0.6 k/uL (1.0-4.8); Lymphocytes % (A) 11 %; MCH 29.3 pg (25.0-35.0); MCHC 31.4 g/dL (31.0-37.0); MCV 93.1 fL (80.0-100.0); Mean Platelet Volume 7.6; Monocytes # (A) 0.3 k/uL (0-1.0); Monocytes % (A) 5 %; Neutrophils # (A) 4.4 k/uL (1.3-7.7); Neutrophils % (A) 81 %; Platelet Count 133 k/uL (150-450); RBC 4.34 m/uL (4.30-5.90); RDW 17.1 % (11.5-15.5); WBC 5.4 k/uL (3.8-10.6)
--- NOTE | 2022-01-28 17:30 | CT ---
EXAMINATION TYPE: CT abdomen pelvis w con CT DLP: 659.5 mGycm, Automated exposure control for dose reduction was used. DATE OF EXAM: 01/28/2022 5:18 PM COMPARISON: CT abdomen pelvis most recent from 10/29/2018. CLINICAL INDICATION:Male, 57 years old with history of ab pain; TECHNIQUE: Standard CT of the abdomen and pelvis following the administration of 100 cc of Isovue 3 00 IV contrast material. Coronal and sagittal reformats were performed. FINDINGS: LOWER CHEST: Posterior dependent subsegmental atelectasis is noted. Coronary artery calcifications no annalise. ABDOMEN LIVER: Unremarkable GALLBLADDER AND BILE DUCTS: The gallbladder is surgically absent. Mild extrahepatic biliary dilatatio n which is not unexpected in the setting of cholecystectomy. PANCREAS: Unremarkable. SPLEEN: Enlarged spleen measuring 22 cm in craniocaudad dimension. ADRENAL GLANDS: Unremarkable. KIDNEYS AND URETERS: No evidence of hydronephrosis or renal calculus. No focal lesion. Mass effect on the left kidney from the enlarged spleen. PELVIS BLADDER: Unremarkable REPRODUCTIVE: Unremarkable. ABDOMEN & PELVIS STOMACH AND BOWEL: Stomach and duodenum are unremarkable. No focal wall thickening or surrounding inf lammatory changes. The appendix is within normal limits. No evidence of bowel obstruction. PERITONEUM: No evidence of pneumoperitoneum or free fluid. VASCULATURE: Mild atherosclerotic calcifications are present throughout the abdominal aorta and its b ranches. No evidence of aortic aneurysm. Enlarged patent portal and splenic veins. MUSCULOSKELETAL: No acute osseous abnormalities LYMPH NODES: No gross evidence for lymphadenopathy. SOFT TISSUE/ABDOMINAL WALL: Moderate fat filled umbilical hernia redemonstrated. IMPRESSION: 1. No acute abdominal/pelvic process. 2. Redemonstration of marked splenomegaly with evidence of portal venous hypertension.
[2022-01-28 17:37] LABS: Partial Thromboplastin Time 26.5 sec (22.0-30.0); Prothrombin Time 10.9 sec (9.0-12.0)
--- NOTE | 2022-01-28 18:06 | ED ---
General Adult HPI - General Chief complaint: Abdominal Pain Stated complaint: Abd pain,Leg swelling,SOB Time Seen by Provider: 01/28/22 16:06 Source: patient, RN notes reviewed, old records reviewed Mode of arrival: ambulatory Limitations: no limitations - History of Present Illness Initial comments: 57-year-old male history of hepatitis C, remote EtOH abuse, and liver failure status post transplant presenting with anterior abdominal pain and distention. Patient's states that he has not followed up recently with [facility]. He states he was scheduled to have outpatient lab testing several weeks ago but did not have this performed. He denies current vomiting. Denies fever. He states he has a known anterior abdominal wall hernia which is been increasingly more painful. - Related Data Home Medications Medication Instructions Recorded Confirmed Tacrolimus [Prograf] 3 mg PO BID 08/30/16 08/11/19 Albuterol Inhaler [Ventolin Hfa 1 - 2 puff INHALATION RT-Q6H PRN 08/11/19 08/11/19 Inhaler] Beclomethasone Dip 80 Mcg/Puff 1 puff INHALATION RT-BID 08/11/19 08/11/19 [Qvar 80 mcg] Buprenorphine HCl/Naloxone HCl 1 film SL AC-BID 08/11/19 08/11/19 [Suboxone 8 mg-2 mg Sl Film] Docusate Sodium [Dok] 100 mg PO BID 08/11/19 08/11/19 Gabapentin 800 mg PO TID PRN 08/11/19 08/11/19 Magnesium Oxide 400 mg PO BID 08/11/19 08/11/19 mycophenolate mofetiL [Cellcept] 1,500 mg PO BID 08/11/19 08/11/19 predniSONE [Deltasone] 40 mg PO DAILY 08/11/19 08/11/19 Allergies Allergy/AdvReac Type Severity Reaction Status Date / Time No Known Allergies Allergy Verified 01/28/22 15:08 Review of Systems ROS Statement: Those systems with pertinent positive or pertinent negative responses have been documented in the HPI. ROS Other: All systems not noted in ROS Statement are negative. Past Medical History Past Medical History: GI Bleed, Liver Disease Additional Past Medical History / Comment(s): Hepatitis C, cirrhosis, appendicitis, anemia alcoholic cirrhosis/ refractory ASCITIES, past c-diff 1-7-15, ABD HERNIA, PVD, varices, recurrent Right pleural effusion. THORACENTESIS 02/15/15 History of Any Multi-Drug Resistant Organisms: C-DIFF Date of last positivie culture/infection: 07/15/2014 MDRO Source:: previous admission Past Surgical History: Appendectomy Additional Past Surgical History / Comment(s): multiple paracentesis, variceal banding, EGDAdditional Medical Hx: Hepatitis C; Cirrhosis, multiple thoracentesis,TIPS procedure liver transplant, lung surgery, "shattered rt ankle after falling 3 story roof-has plate/akil,screws" Past Anesthesia/Blood Transfusion Reactions: No Reported Reaction Additional Past Anesthesia/Blood Transfusion Reaction / Comment(s): HAS HAD BLOOD TRANSFUSIONS-NO REACTION Past Psychological History: No Psychological Hx Reported Smoking Status: Current every day smoker Past Alcohol Use History: None Reported Past Drug Use History: Marijuana - Past Family History Mother Family Medical History: CVA/TIA, Myocardial Infarction ([place]) Additional Family Medical History / Comment(s): currently alive and 90 years old Father Family Medical History: No Reported History Additional Family Medical History / Comment(s): from car accident General Exam Limitations: no limitations General appearance: alert, in no apparent distress Head exam: Present: atraumatic, normocephalic Eye exam: Present: normal appearance, scleral icterus ENT exam: Present: mucous membranes dry Neck exam: Present: normal inspection. Absent: tenderness, meningismus Respiratory exam: Present: normal lung sounds bilaterally. Absent: respiratory distress, wheezes Cardiovascular Exam: Present: regular rate, normal rhythm GI/Abdominal exam: Present: distended, tenderness, hernia (Soft umbilical hernia) Extremities exam: Present: other (Erythema left anterior lower leg) Neurological exam: Present: alert, oriented X3 Skin exam: Present: warm, dry, other (Jaundice) Course Vital Signs 01/28/22 15:04 Temperature 98.3 F Pulse Rate 87 Respiratory 18 Rate Blood Pressure 159/67 O2 Sat by Pulse 100 Oximetry - Reevaluation(s) Reevaluation #1: 01/28/22 18:34 Awaiting callback from Vargas Zhang. Medical Decision Making - Medical Decision Making 57-year-old male presenting with abdominal pain, and jaundice. History of liver failure status post transplant. Patient is a poor historian and states that he was off of several of his medications but states he has been taking them recently. He denies fever. Patient has scleral icterus and jaundice. His laboratory testing reveals white blood cell count, hemoglobin 12.7. Electrolytes are within normal limits. His bilirubin is 20, he has a mildly elevated AST and ALT as well as alkaline phosphatase elevation. His INR is 1. His albumin is 3.4. Urinalysis shows hyperbilirubinemia without other acute abnormalities. CT showing ascites, splenomegaly, without acute findings. This institution does not currently have gastroenterology. The patient is a poor h istorian when it comes to his care at [facility]. In light of these 2 issues I did recommend transfer to [facility] and the patient initially agreeable however later in his course he decides that he will prefer to go home and will call the transplant center on Sunday. Did discuss case with the transfer center and the most recent laboratory testing at [facility] indicated a bilirubin of 25 in July of this year. Given these findings I did allow the patient to be discharged from the emergency department which were his wishes.. He is alert and oriented at this time. - Lab Data Result diagrams: 01/28/22 16:42 01/28/22 16:42 Lab Results 01/28/22 01/28/22 01/28/22 Range/Units 16:42 16:42 16:42 WBC 5.4 (3.8-10.6) k/uL RBC 4.34 (4.30-5.90) m/uL Hgb 12.7 L (13.0-17.5) gm/dL Hct 40.5 (39.0-53.0) % MCV 93.1 (80.0-100.0) fL MCH 29.3 (25.0-35.0) pg MCHC 31.4 (31.0-37.0) g/dL RDW 17.1 H (11.5-15.5) % Plt Count 133 L (150-450) k/uL MPV 7.6 Neutrophils % 81 % Lymphocytes % 11 % Monocytes % 5 % Eosinophils % 1 % Basophils % 0 % Neutrophils # 4.4 (1.3-7.7) k/uL Lymphocytes # 0.6 L (1.0-4.8) k/uL Monocytes # 0.3 (0-1.0) k/uL Eosinophils # 0.1 (0-0.7) k/uL Basophils # 0.0 (0-0.2) k/uL Manual Slide Review Performed Anisocytosis Slight PT 10.9 (9.0-12.0) sec INR 1.0 (<1.2) APTT 26.5 (22.0-30.0) sec Sodium (137-145) mmol/L Potassium (3.5-5.1) mmol/L Chloride (98-107) mmol/L Carbon Dioxide (22-30) mmol/L Anion Gap mmol/L BUN (9-20) mg/dL Creatinine (0.66-1.25) mg/dL Est GFR (CKD-EPI)AfAm (>60 ml/min/1.73 sqM) Est GFR (CKD-EPI)NonAf (>60 ml/min/1.73 sqM) Glucose (74-99) mg/dL Calcium (8.4-10.2) mg/dL Total Bilirubin (0.2-1.3) mg/dL AST (17-59) U/L ALT (4-49) U/L Alkaline Phosphatase (38-126) U/L Total Protein (6.3-8.2) g/dL Albumin (3.5-5.0) g/dL Amylase (30-110) U/L Lipase (23-300) U/L Urine Color Dark Brown Urine Appearance Clear (Clear) Urine pH 6.5 (5.0-8.0) Ur Specific Ney 1.016 (1.001-1.035) Urine Protein Negative (Negative) Urine Glucose (UA) Negative (Negative) Urine Ketones Negative (Negative) Urine Blood Negative (Negative) Urine Nitrite Negative (Negative) Urine Bilirubin 4+ H (Negative) Urine Urobilinogen 2.0 (<2.0) mg/dL Ur Leukocyte Esterase Negative (Negative) 01/28/22 Range/Units 16:42 WBC (3.8-10.6) k/uL RBC (4.30-5.90) m/uL Hgb (13.0-17.5) gm/dL Hct (39.0-53.0) % MCV (80.0-100.0) fL MCH (25.0-35.0) pg MCHC (31.0-37.0) g/dL RDW (11.5-15.5) % Plt Count (150-450) k/uL MPV Neutrophils % % Lymphocytes % % Monocytes % % Eosinophils % % Basophils % % Neutrophils # (1.3-7.7) k/uL Lymphocytes # (1.0-4.8) k/uL Monocytes # (0-1.0) k/uL Eosinophils # (0-0.7) k/uL Basophils # (0-0.2) k/uL Manual Slide Review Anisocytosis PT (9.0-12.0) sec INR (<1.2) APTT (22.0-30.0) sec Sodium 136 L (137-145) mmol/L Potassium 4.0 (3.5-5.1) mmol/L Chloride 102 (98-107) mmol/L Carbon Dioxide 27 (22-30) mmol/L Anion Gap 7 mmol/L BUN 15 (9-20) mg/dL Creatinine 0.84 (0.66-1.25) mg/dL Est GFR (CKD-EPI)AfAm >90 (>60 ml/min/1.73 sqM) Est GFR (CKD-EPI)NonAf >90 (>60 ml/min/1.73 sqM) Glucose 82 (74-99) mg/dL Calcium 8.7 (8.4-10.2) mg/dL Total Bilirubin 19.8 H* (0.2-1.3) mg/dL AST 283 H (17-59) U/L ALT 201 H (4-49) U/L Alkaline Phosphatase 1462 H (38-126) U/L Total Protein 8.1 (6.3-8.2) g/dL Albumin 3.4 L (3.5-5.0) g/dL Amylase 54 (30-110) U/L Lipase 146 (23-300) U/L Urine Color Urine Appearance (Clear) Urine pH (5.0-8.0) Ur Specific Ney (1.001-1.035) Urine Protein (Negative) Urine Glucose (UA) (Negative) Urine Ketones (Negative) Urine Blood (Negative) Urine Nitrite (Negative) Urine Bilirubin (Negative) Urine Urobilinogen (<2.0) mg/dL Ur Leukocyte Esterase (Negative) Disposition Clinical Impression: Hyperbilirubinemia, Cirrhosis of liver with ascites, Liver failure Disposition: HOME SELF-CARE Condition: Fair Instructions (If sedation given, give patient instructions): Liver Transplant (DC), Ascites (ED) Additional Instructions: Please follow up with your transplant team at [facility]. Please return to the emergency department with worsening or changing symptoms. Is patient prescribed a controlled substance at d/c from ED?: No Referrals: Davi Matute DO [Primary Care Provider] - 1-2 days Time of Disposition: 19:00
== END 2022-01-28 19:23 | disposition home or self-care (01) ==
LOC: EC 14:50
DX: K74.60 Unspecified cirrhosis of liver (principal); K72.90 Hepatic failure, unspecified without coma; E80.6 Other disorders of bilirubin metabolism; F17.200 Nicotine dependence, unspecified, uncomplicated; Z82.49 Family history of ischemic heart disease and other diseases of the circulatory system; Z86.73 Personal history of transient ischemic attack (TIA), and cerebral infarction without residual deficits
CPT/HCPCS: 36415; 80053; 82150; 83690; 85025; 85610; 85730; 81003; 74177; 99285; 96374; 96361; J1170; Q9967

== ENCOUNTER 2022-04-26 08:24 | Observation (INO) | payer OTHER ==
[2022-04-26] MEDS ORDERED: HYDROmorphone 0.5 MG/0.5 ML SYRINGE IVP STA (08:34)
[2022-04-26] MEDS ORDERED: SODIUM CHLORIDE 0.9% 1,000 ML IV STA (08:34)
[2022-04-26] MEDS ORDERED: METOCLOPRAMIDE 5 MG/ML 2 ML VIAL IVP STA (08:34)
[2022-04-26] MEDS ORDERED: PANTOPRAZOLE 40 MG/10 ML VIAL IVP STA (08:34)
--- NOTE | 2022-04-26 08:39 | ED ---
General Adult HPI - General Chief complaint: Shortness of Breath Stated complaint: vomiting blood Time Seen by Provider: 04/26/22 08:25 Source: patient, EMS, RN notes reviewed Mode of arrival: EMS Limitations: no limitations - History of Present Illness Initial comments: 57-year-old male presents emergency Department chief complaint of abdominal pain, vomiting. Patient has known hepatitis C, liver cirrhosis with jaundice. Patient states jaundice is slightly worse at this time. Patient had recent hospitalization at [facility] in which he is followed by their house nurse. Patient states that he started vomiting this morning he noticed some dark emesis. He does admit his abdomen is chronically swollen and he does not receive paracentesis. Patient states is not has pain medication which she is on oxycodone and over 5 days. He states he ran out. Patient denies fevers or chills he does admit to mild shortness of breath. - Related Data Home Medications Medication Instructions Recorded Confirmed Tacrolimus [Prograf] 2 mg PO BID 08/30/16 04/26/22 Albuterol Inhaler [Ventolin Hfa 1 - 2 puff INHALATION RT-Q4H PRN 08/11/19 04/26/22 Inhaler] Docusate Sodium [Dok] 100 mg PO BID PRN 08/11/19 04/26/22 mycophenolate mofetiL [Cellcept] 1,000 mg PO BID 08/11/19 04/26/22 Butalb/APAP/Caff 50-325-40Mg 1 - 2 tab PO DAILY PRN 02/23/22 04/26/22 [Fioricet 50-325-40] Diclofenac Sodium Gel [Voltaren 2 gm TOPICAL QID PRN 02/23/22 04/26/22 Gel] Fluticasone Propion/Salmeterol 1 puff INHALATION RT-BID 02/23/22 04/26/22 [Advair 250-50 Diskus] HYDROcodone/APAP 10-325MG [[place] 1 tab PO Q8H PRN 02/23/22 04/26/22 10-325] Ibuprofen [Motrin] 800 mg PO BID PRN 02/23/22 04/26/22 Loratadine 10 mg PO DAILY PRN 02/23/22 04/26/22 Sildenafil Citrate [Viagra] 100 mg PO DAILY PRN 02/23/22 04/26/22 ursodioL [Ursodiol] 600 mg PO TID 02/23/22 04/26/22 Furosemide [Lasix] 20 mg PO DAILY 04/26/22 04/26/22 Naloxone HCl 4 mg NS DAILY PRN 04/26/22 04/26/22 Pantoprazole [Protonix] 40 mg PO DAILY 04/26/22 04/26/22 Simethicone Chew [Mylicon Chew] 80 mg PO QID PRN 04/26/22 04/26/22 Spironolactone [Aldactone] 50 mg PO DAILY 04/26/22 04/26/22 Sulfamethox-Tmp 800-160Mg [Bactrim 1 tab PO MOWEFR 04/26/22 04/26/22 DS 800-160 mg] oxyCODONE HCL [OxyIR] 5 mg PO BID 04/26/22 04/26/22 predniSONE [Deltasone] 40 mg PO DAILY 04/26/22 04/26/22 Allergies Allergy/AdvReac Type Severity Reaction Status Date / Time No Known Allergies Allergy Verified 04/26/22 11:40 Review of Systems ROS Statement: Those systems with pertinent positive or pertinent negative responses have been documented in the HPI. ROS Other: All systems not noted in ROS Statement are negative. Past Medical History Past Medical History: GI Bleed, Liver Disease Additional Past Medical History / Comment(s): Hepatitis C, cirrhosis, appendicitis, anemia alcoholic cirrhosis/ refractory ASCITIES, past c-diff 1--15, ABD HERNIA, PVD, varices, recurrent Right pleural effusion. THORACENTESIS 02/15/15 History of Any Multi-Drug Resistant Organisms: C-DIFF Date of last positivie culture/infection: 07/15/2014 MDRO Source:: previous admission Past Surgical History: Appendectomy Additional Past Surgical History / Comment(s): multiple paracentesis, variceal banding, EGDAdditional Medical Hx: Hepatitis C; Cirrhosis, multiple thoracentesis,TIPS procedure liver transplant, lung surgery, "shattered rt ankle after falling 3 story roof-has plate/akil,screws" Past Anesthesia/Blood Transfusion Reactions: No Reported Reaction Additional Past Anesthesia/Blood Transfusion Reaction / Comment(s): HAS HAD BLOOD TRANSFUSIONS-NO REACTION Past Psychological History: No Psychological Hx Reported Smoking Status: Current every day smoker Past Alcohol Use History: None Reported Past Drug Use History: Marijuana - Past Family History Mother Family Medical History: CVA/TIA, Myocardial Infarction ([place]) Additional Family Medical History / Comment(s): currently alive and 90 years old Father Family Medical History: No Reported History Additional Family Medical History / Comment(s): from car accident General Exam Limitations: no limitations General appearance: alert, in distress Head exam: Present: atraumatic, normocephalic, normal inspection Eye exam: Present: PERRL, EOMI, scleral icterus. Absent: normal appearance, c onjunctival injection, periorbital swelling ENT exam: Present: mucous membranes moist, TM's normal bilaterally. Absent: normal exam, normal oropharynx (Icterus) Neck exam: Present: normal inspection. Absent: tenderness, meningismus, lymphadenopathy Respiratory exam: Present: normal lung sounds bilaterally. Absent: respiratory distress, wheezes, rales, rhonchi, stridor Cardiovascular Exam: Present: regular rate, normal rhythm, normal heart sounds. Absent: systolic murmur, diastolic murmur, rubs, gallop, clicks GI/Abdominal exam: Present: distended, tenderness, rigid, normal bowel sounds. Absent: guarding, rebound Neurological exam: Present: alert Skin exam: Present: warm, dry, intact. Absent: normal color, rash Course Vital Signs 04/26/22 04/26/22 04/26/22 08:26 10: 12:10 Temperature 98 F Pulse Rate 72 72 80 Respiratory 18 18 18 Rate Blood Pressure 123/74 114/64 116/74 O2 Sat by Pulse 100 100 100 Oximetry 04/26/22 14:54 Temperature Pulse Rate 97 Respiratory 18 Rate Blood Pressure 109/76 O2 Sat by Pulse 100 Oximetry Medical Decision Making - Medical Decision Making 57-year-old male present emergency department for nausea vomiting abdominal pain possible hematemesis. Patient has severe liver cirrhosis, hepatitis C and liver failure. Patient will be admitted to Dr. olivier with consult to Dr. Sharma patient kept on Protonix, antiemetics, fluid hydration and close monitoring. - Lab Data Result diagrams: 04/26/22 08:59 04/26/22 08:59 Lab Results 04/26/22 04/26/22 04/26/22 Range/Units 08:59 08:59 08:59 WBC 13.2 H (3.8-10.6) k/uL RBC 2.96 L (4.30-5.90) m/uL Hgb 9.4 L D (13.0-17.5) gm/dL Hct 26.6 L (39.0-53.0) % MCV 90.0 (80.0-100.0) fL MCH 31.8 (25.0-35.0) pg MCHC 35.4 (31.0-37.0) g/dL RDW 18.0 H (11.5-15.5) % Plt Count 77 L (150-450) k/uL MPV 10.9 Neutrophils % 89 % Lymphocytes % 4 % Monocytes % 4 % Eosinophils % 1 % Basophils % 0 % Neutrophils # 11.7 H (1.3-7.7) k/uL Lymphocytes # 0.5 L (1.0-4.8) k/uL Monocytes # 0.6 (0-1.0) k/uL Eosinophils # 0.1 (0-0.7) k/uL Basophils # 0.0 (0-0.2) k/uL Manual Slide Review Performed Toxic Granulation Present Poikilocytosis Slight Anisocytosis Slight PT 15.7 H (9.0-12.0) sec INR 1.5 H (<1.2) APTT 33.6 H (22.0-30.0) sec Sodium 130 L (137-145) mmol/L Potassium 2.9 L (3.5-5.1) mmol/L Chloride 102 (98-107) mmol/L Carbon Dioxide 14 L (22-30) mmol/L Anion Gap 14 mmol/L BUN 75 H (9-20) mg/dL Creatinine 2.54 H (0.66-1.25) mg/dL Est GFR (CKD-EPI)AfAm 31 (>60 ml/min/1.73 sqM) Est GFR (CKD-EPI)NonAf 27 (>60 ml/min/1.73 sqM) Glucose 95 (74-99) mg/dL Lactic Ac Sepsis Rflx Plasma Lactic Acid Devin (0.7-2.0) mmol/L Calcium 6.9 L (8.4-10.2) mg/dL Total Bilirubin 43.0 H* (0.2-1.3) mg/dL AST 193 H (17-59) U/L ALT 153 H (4-49) U/L Alkaline Phosphatase 885 H (38-126) U/L Ammonia (<30) umol/L Total Protein 5.3 L (6.3-8.2) g/dL Albumin 2.3 L (3.5-5.0) g/dL Amylase <30 L (30-110) U/L Lipase 64 (23-300) U/L 04/26/22 04/26/22 Range/Units 08:59 09:39 WBC (3.8-10.6) k/uL RBC (4.30-5.90) m/uL Hgb (13.0-17.5) gm/dL Hct (39.0-53.0) % MCV (80.0-100.0) fL MCH (25.0-35.0) pg MCHC (31.0-37.0) g/dL RDW (11.5-15.5) % Plt Count (150-450) k/uL MPV Neutrophils % % Lymphocytes % % Monocytes % % Eosinophils % % Basophils % % Neutrophils # (1.3-7.7) k/uL Lymphocytes # (1.0-4.8) k/uL Monocytes # (0-1.0) k/uL Eosinophils # (0-0.7) k/uL Basophils # (0-0.2) k/uL Manual Slide Review Toxic Granulation Poikilocytosis Anisocytosis PT (9.0-12.0) sec INR (<1.2) APTT (22.0-30.0) sec Sodium (137-145) mmol/L Potassium (3.5-5.1) mmol/L Chloride (98-107) mmol/L Carbon Dioxide (22-30) mmol/L Anion Gap mmol/L BUN (9-20) mg/dL Creatinine (0.66-1.25) mg/dL Est GFR (CKD-EPI)AfAm (>60 ml/min/1.73 sqM) Est GFR (CKD-EPI)NonAf (>60 ml/min/1.73 sqM) Glucose (74-99) mg/dL Lactic Ac Sepsis Rflx Y Plasma Lactic Acid Devin 2.5 H* (0.7-2.0) mmol/L Calcium (8.4-10.2) mg/dL Total Bilirubin (0.2-1.3) mg/dL AST (17-59) U/L ALT (4-49) U/L Alkaline Phosphatase (38-126) U/L Ammonia 86 H (<30) umol/L Total Protein (6.3-8.2) g/dL Albumin (3.5-5.0) g/dL Amylase (30-110) U/L Lipase (23-300) U/L Disposition Clinical Impression: Hepatitis C, Hyperbilirubinemia, GI bleed, Cirrhosis of liver with ascites, Hepatic failure, Acute renal failure, Anemia, History of liver transplant Disposition: OTHER INSTITUTION NOT DEFINED Condition: Poor Time of Disposition: 10:10
[2022-04-26 09:11] LABS: Anisocytosis Slight; Basophils % (A) 0 %; Eosinophils # (A) 0.1 k/uL (0-0.7); Eosinophils % (A) 1 %; HCT 26.6 % (39.0-53.0); Lymphocytes # (A) 0.5 k/uL (1.0-4.8); Lymphocytes % (A) 4 %; MCH 31.8 pg (25.0-35.0); MCHC 35.4 g/dL (31.0-37.0); Mean Platelet Volume 10.9; Monocytes # (A) 0.6 k/uL (0-1.0); Monocytes % (A) 4 %; Neutrophils # (A) 11.7 k/uL (1.3-7.7); Neutrophils % (A) 89 %; Poikilocytosis Slight; RBC 2.96 m/uL (4.30-5.90); WBC 13.2 k/uL (3.8-10.6)
[2022-04-26 09:15] LABS: HGB 9.4 gm/dL (13.0-17.5)
[2022-04-26 09:26] LABS: ALT 153 U/L (4-49); AST 193 U/L (17-59); African American GFR (CKD) 31 (>60 ml/min/1.73 sqM); Albumin 2.3 g/dL (3.5-5.0); Alkaline Phosphatase 885 U/L (38-126); Amylase <30 U/L (30-110); Anion Gap 14 mmol/L; Blood Urea Nitrogen 75 mg/dL (9-20); Calcium 6.9 mg/dL (8.4-10.2); Carbon Dioxide 14 mmol/L (22-30); Chloride 102 mmol/L (98-107); Glucose 95 mg/dL (74-99); Lipase 64 U/L (23-300); Non-African American GFR(CKD) 27 (>60 ml/min/1.73 sqM); Potassium 2.9 mmol/L (3.5-5.1); Sodium 130 mmol/L (137-145); Total Protein 5.3 g/dL (6.3-8.2)
--- NOTE | 2022-04-26 09:28 | XR ---
EXAMINATION TYPE: XR chest 2V DATE OF EXAM: 04/26/2022 9:21 AM COMPARISON: Chest radiographs from 08/11/2019. TECHNIQUE: XR chest 2V Frontal and lateral views of the chest. CLINICAL INDICATION:Male, 57 years old with history of sob; FINDINGS: Lungs/Pleura: There is no evidence of pleural effusion, focal consolidation, or pneumothorax. Left b asilar atelectasis. Pulmonary vascularity: Mild pulmonary vascular congestion. Heart/mediastinum: Cardiomediastinal silhouette is unremarkable. Musculoskeletal: No acute osseous pathology. IMPRESSION: Mild pulmonary vascular congestion with left basilar atelectasis.
[2022-04-26 09:38] LABS: INR 1.5 (<1.2); Partial Thromboplastin Time 33.6 sec (22.0-30.0); Prothrombin Time 15.7 sec (9.0-12.0)
[2022-04-26 09:39] LABS: Lactic Acid, Venous 2.5 mmol/L (0.7-2.0)
[2022-04-26 09:49] LABS: Platelet Count 77 k/uL (150-450)
[2022-04-26 09:50] LABS: Toxic Granulation Present
[2022-04-26] MEDS ORDERED: NALOXONE 0.4 MG/ML 1 ML VIAL IV PRN (10:11)
[2022-04-26] MEDS ORDERED: ONDANSETRON 4 MG/2 ML VIAL IVP PRN (10:11)
[2022-04-26] MEDS ORDERED: POTASSIUM CHLORIDE 40 MEQ in WATER FOR INJECTION 1 100ML.BAG IVPB STA (10:13)
[2022-04-26] MEDS ORDERED: LACTULOSE 20 GM/30 ML CUP PO ONE (11:38)
--- NOTE | 2022-04-26 11:43 | P.CONS ---
History of Present Illness - Reason for Consult Consult date: 04/26/22 Liver failure Requesting physician: Km Rosado - Chief Complaint Hematemesis, abdominal distention - History of Present Illness This a pleasant 57-year-old male with a past medical history of hepatitis C, alcohol abuse with liver disease who underwent a liver transplant 5 years ago [facility]. Over the last few months he has been progressively getting more sick, jaundice, abdominal distention. He was seen here in January of this year as well as in February. In January was recommended that he get transferred down to [facility] however patient had refused at that time. In February he was transferred down to [facility] which he states he was told he is rejecting his liver transplant. He is currently on Prograf, CellCept and ursodiol. He presented to the emergency department with complaints of dark red emesis that started 2 days ago. He is also has complaints of abdominal discomfort due to his distention, he has a umbilical hernia. He states he does take Aldactone. He has not had any paracentesis recently. He states he has progressively gotten weaker, he has has not seen anybody at [facility] since approximately 4 weeks ago. Labs WBC 13 hemoglobin 9.4 hematocrit 26, platelet count 77,000 PT 15.7 INR 1.5 sodium 1:30 potassium 2.9 BUN 75 creatinine 2.5 plasma lactic acid 2.5 calcium 6.9 total bilirubin 43 AST 193 ALT 153 alkaline phosphatase 885 amylase less than 30 lipase 64 Mireya 86 Review of Systems REVIEW OF SYSTEMS: CARDIOPULMONARY: No chest pain. Shortness of breath. Gastrointestinal: Abdominal discomfort, related to distention. Umbilical hernia. Nausea and vomiting with dark red emesis. No rectal bleeding, or melena. GENITOURINARY: No dysuria or hematuria. MUSCULOSKELETAL: Reports normal range of motion. SKIN: No rashes. No jaundice. ENDOCRINE: No chills, fevers. No polydipsia or polyuria. PSYCHIATRIC: Unremarkable. NEUROLOGY: No change in mental status. Denies dizziness, headache. ENT: Vision unremarkable. CONSTITUTIONAL: Weakness, fatigue. No fever, chills, night sweats. Past Medical History Past Medical History: GI Bleed, Liver Disease Additional Past Medical History / Comment(s): Hepatitis C, cirrhosis, appendicitis, anemia alcoholic cirrhosis/ refractory ASCITIES, past c-diff 1-7-15, ABD HERNIA, PVD, varices, recurrent Right pleural effusion. THORACENTESIS 02/15/15 History of Any Multi-Drug Resistant Organisms: C-DIFF Year Discovered:: 07/15/2014 MDRO Source:: previous admission Past Surgical History: Appendectomy Additional Past Surgical History / Comment(s): multiple paracentesis, variceal banding, EGDAdditional Medical Hx: Hepatitis C; Cirrhosis, multiple thoracentesis,TIPS procedure liver transplant, lung surgery, "shattered rt ankle after falling 3 story roof-has plate/akil,screws" Past Anesthesia/Blood Transfusion Reactions: No Reported Reaction Additional Past Anesthesia/Blood Transfusion Reaction / Comm: HAS HAD BLOOD TRANSFUSIONS-NO REACTION Past Psychological History: No Psychological Hx Reported Smoking Status: Current every day smoker Past Alcohol Use History: None Reported Past Drug Use History: Marijuana - Past Family History Mother Family Medical History: CVA/TIA, Myocardial Infarction ([place]) Additional Family Medical History / Comment(s): currently alive and 90 years old Father Family Medical History: No Reported History Additional Family Medical History / Comment(s): from car accident Medications and Allergies Home Medications Medication Instructions Recorded Confirmed Type Tacrolimus [Prograf] 2 mg PO BID 08/30/16 02/23/22 History Albuterol Inhaler [Ventolin Hfa 1 - 2 puff INHALATION RT-Q6H PRN 08/11/19 02/23/22 History Inhaler] Docusate Sodium [Dok] 100 mg PO BID PRN 08/11/19 02/23/22 History mycophenolate mofetiL [Cellcept] 1,000 mg PO BID 08/11/19 02/23/22 History Butalb/APAP/Caff 50-325-40Mg 1 - 2 tab PO DAILY PRN 02/23/22 02/23/22 History [Fioricet 50-325-40] Diclofenac Sodium Gel [Voltaren 2 gm TOPICAL QID PRN 02/23/22 02/23/22 History Gel] Fluticasone Propion/Salmeterol 1 puff INHALATION RT-BID 02/23/22 02/23/22 History [Advair 250-50 Diskus] HYDROcodone/APAP 10-325MG [Gilsum 1 tab PO Q8H PRN 02/23/22 02/23/22 History 10-325] Ibuprofen [Motrin] 800 mg PO TID PRN 02/23/22 02/23/22 History Loratadine 10 mg PO DAILY PRN 02/23/22 02/23/22 History Sildenafil Citrate [Viagra] 100 mg PO DAILY PRN 02/23/22 02/23/22 History ursodioL [Ursodiol] 600 mg PO TID 02/23/22 02/23/22 History Furosemide [Lasix] 20 mg PO DAILY 04/26/22 04/26/22 History Naloxone HCl 4 mg NS DAILY PRN 04/26/22 04/26/22 History Pantoprazole [Protonix] 40 mg PO DAILY 04/26/22 04/26/22 History Simethicone Chew [Mylicon Chew] 80 mg PO QID PRN 04/26/22 04/26/22 History Spironolactone [Aldactone] 50 mg PO DAILY 04/26/22 04/26/22 History Sulfamethox-Tmp 800-160Mg [Bactrim 1 tab PO MOWEFR 04/26/22 04/26/22 History DS 800-160 mg] oxyCODONE HCL [OxyIR] 5 mg PO BID 04/26/22 04/26/22 History predniSONE [Deltasone] 40 mg PO DAILY 04/26/22 04/26/22 History Allergies Allergy/AdvReac Type Severity Reaction Status Date / Time No Known Allergies Allergy Verified 04/26/22 11:40 Physical Exam Vitals: Vital Signs Temp Pulse Resp BP Pulse Ox 04/26/22 10:22 72 18 114/64 100 04/26/22 08:26 98 F 72 18 123/74 100 Intake and Output 04/25/22 04/26/22 04/26/22 22:59 06:59 14:59 Other: Weight 58.967 kg General appearance: The patient is alert, oriented, appears in no acute di stress. HET: Head is normocephalic and atraumatic. Conjunctiva pink. Sclera deeply icteric. Neck: Supple. Trachea midline. Heart: S1 S2. Regular rate and rhythm. Lungs: Clear to auscultation. Abdomen: Soft, abdominal distention, reducible umbilical hernia. No guarding or rigidity. Skin: No rashes. Severe jaundice. Extremities: Normal skin color and turgor. No pedal edema. Neurological: No focal deficits. Alert and oriented x3. Results CBC & Chem 7: 04/26/22 08:59 04/26/22 08:59 Labs: Abnormal Lab Results - Last 24 Hours (Table) 04/26/22 04/26/22 04/26/22 Range/Units 08:59 08:59 08:59 WBC 13.2 H (3.8-10.6) k/uL RBC 2.96 L (4.30-5.90) m/uL Hgb 9.4 L D (13.0-17.5) gm/dL Hct 26.6 L (39.0-53.0) % RDW 18.0 H (11.5-15.5) % Plt Count 77 L (150-450) k/uL Neutrophils # 11.7 H (1.3-7.7) k/uL Lymphocytes # 0.5 L (1.0-4.8) k/uL PT 15.7 H (9.0-12.0) sec INR 1.5 H (<1.2) APTT 33.6 H (22.0-30.0) sec Sodium 130 L (137-145) mmol/L Potassium 2.9 L (3.5-5.1) mmol/L Carbon Dioxide 14 L (22-30) mmol/L BUN 75 H (9-20) mg/dL Creatinine 2.54 H (0.66-1.25) mg/dL Plasma Lactic Acid Devin (0.7-2.0) mmol/L Calcium 6.9 L (8.4-10.2) mg/dL Total Bilirubin 43.0 H* (0.2-1.3) mg/dL AST 193 H (17-59) U/L ALT 153 H (4-49) U/L Alkaline Phosphatase 885 H (38-126) U/L Ammonia (<30) umol/L Total Protein 5.3 L (6.3-8.2) g/dL Albumin 2.3 L (3.5-5.0) g/dL Amylase <30 L (30-110) U/L 04/26/22 Range/Units 08:59 WBC (3.8-10.6) k/uL RBC (4.30-5.90) m/uL Hgb (13.0-17.5) gm/dL Hct (39.0-53.0) % RDW (11.5-15.5) % Plt Count (150-450) k/uL Neutrophils # (1.3-7.7) k/uL Lymphocytes # (1.0-4.8) k/uL PT (9.0-12.0) sec INR (<1.2) APTT (22.0-30.0) sec Sodium (137-145) mmol/L Potassium (3.5-5.1) mmol/L Carbon Dioxide (22-30) mmol/L BUN (9-20) mg/dL Creatinine (0.66-1.25) mg/dL Plasma Lactic Acid Devin 2.5 H* (0.7-2.0) mmol/L Calcium (8.4-10.2) mg/dL Total Bilirubin (0.2-1.3) mg/dL AST (17-59) U/L ALT (4-49) U/L Alkaline Phosphatase (38-126) U/L Ammonia 86 H (<30) umol/L Total Protein (6.3-8.2) g/dL Albumin (3.5-5.0) g/dL Amylase (30-110) U/L Chest x-ray: report reviewed (Mild pulmonary vascular congestion with left basilar atelectasis) Assessment and Plan (1) Hepatic failure Narrative/Plan: 47-year-old male with a known history of hepatitis C infection and chronic alcohol abuse with liver failure who underwent liver transplant approximately 5 years ago at [facility]. Patient has been progressively getting sick over the last 2 months duration has been to our hospital and January and February. Last transferred to [facility] in February for care. Patient reportedly states that he is rejecting the liver, currently on Prograf CellCept and Ursodiol. Patient states he was last seen at [facility] approximately 4 weeks ago. He states he has had continued abdominal distention however states that he was told he did not have any fluid to be drained. Also noted to be severely jaundiced with a total bilirubin of 43, LFTs are elevated AST 193 ALT 153 alkaline phosphatase 885, cannot rule out possible obstruction. Patient presented with abdominal distention and dark red emesis for the last 2 days duration. Unclear etiology of hematemesis, could be related to severe gastritis, esophagitis, AVM or esophageal varices. Patient unsure of last EGD. At this time recommendation is to transfer to [facility] for plant protection officer/liver transplant team management. Current Visit: Yes Status: Acute Code(s): K72.90 - HEPATIC FAILURE, UNSPECIFIED WITHOUT COMA SNOMED Code(s): 81895173 (2) Acute kidney injury Current Visit: Yes Status: Acute Code(s): N17.9 - ACUTE KIDNEY FAILURE, UNSPECIFIED SNOMED Code(s): 46246756 (3) GI bleed Narrative/Plan: Patient with coffee-ground/dark red emesis. Hemoglobin stable at this time. Recommending transfer to [facility]. Current Visit: Yes Status: Acute Code(s): K92.2 - GASTROINTESTINAL HEMORRHAGE, UNSPECIFIED SNOMED Code(s): 94571956 (4) Hyperammonemia Current Visit: Yes Status: Acute Code(s): E72.20 - DISORDER OF UREA CYCLE METABOLISM, UNSPECIFIED SNOMED Code(s): 7563181 (5) Hepatitis C Current Visit: Yes Status: Acute Priority: High Code(s): B19.20 - UNSPECIFIED VIRAL HEPATITIS C WITHOUT HEPATIC COMA SNOMED Code(s): 95483550 (6) Hyperbilirubinemia Current Visit: Yes Status: Acute Code(s): E80.6 - OTHER DISORDERS OF BILIRUBIN METABOLISM SNOMED Code(s): 46387195 (7) Hypokalemia Narrative/Plan: Replace electrolytes Current Visit: Yes Status: Acute Code(s): E87.6 - HYPOKALEMIA SNOMED Code(s): 87383606 Plan: 1. Continue symptomatic and supportive care 2. Recommend transfer to [facility] where patient is established with liver transplant team 3. CBC every 6 hours, transfuse for hemoglobin less than 7 4. Lactulose 30 g times one dose then 3 times a day 5. Protonix 40 mg twice a day 6. Daily CBC, INR, CMP 7. Discussed recommendation to initiate transfer to [facility] with ER, Km Rosado and with Dr. Marroquin Thank you for this consultation. Dr. Rufino Merchant I agree with the dictator's note, documented as a scribe by Joanne Trevino.
[2022-04-26] MEDS: POTASSIUM CHLORIDE 20 MEQ in WATER FOR INJECTION 1 100ML.BAG IVPB SCH ×2 (12:16→14:41)
[2022-04-26] MEDS: HYDROmorphone 0.5 MG/0.5 ML SYRINGE IVP PRN ×3 (12:16→18:07)
--- NOTE | 2022-04-26 12:18 | ED ---
Medical Decision Making - Medical Decision Making Case discussed with GI and felt the patient be transferred to [facility] as he has a history of liver transplant with liver transplant failure hyperbilirubinemia, anemia, acute kidney injury, hypokalemia. [facility] for [facility] - Lab Data Result diagrams: 04/26/22 08:59 04/26/22 08:59 Lab Results 04/26/22 04/26/22 04/26/22 Range/Units 08:59 08:59 08:59 WBC 13.2 H (3.8-10.6) k/uL RBC 2.96 L (4.30-5.90) m/uL Hgb 9.4 L D (13.0-17.5) gm/dL Hct 26.6 L (39.0-53.0) % MCV 90.0 (80.0-100.0) fL MCH 31.8 (25.0-35.0) pg MCHC 35.4 (31.0-37.0) g/dL RDW 18.0 H (11.5-15.5) % Plt Count 77 L (150-450) k/uL MPV 10.9 Neutrophils % 89 % Lymphocytes % 4 % Monocytes % 4 % Eosinophils % 1 % Basophils % 0 % Neutrophils # 11.7 H (1.3-7.7) k/uL Lymphocytes # 0.5 L (1.0-4.8) k/uL Monocytes # 0.6 (0-1.0) k/uL Eosinophils # 0.1 (0-0.7) k/uL Basophils # 0.0 (0-0.2) k/uL Manual Slide Review Performed Toxic Granulation Present Poikilocytosis Slight Anisocytosis Slight PT 15.7 H (9.0-12.0) sec INR 1.5 H (<1.2) APTT 33.6 H (22.0-30.0) sec Sodium 130 L (137-145) mmol/L Potassium 2.9 L (3.5-5.1) mmol/L Chloride 102 (98-107) mmol/L Carbon Dioxide 14 L (22-30) mmol/L Anion Gap 14 mmol/L BUN 75 H (9-20) mg/dL Creatinine 2.54 H (0.66-1.25) mg/dL Est GFR (CKD-EPI)AfAm 31 (>60 ml/min/1.73 sqM) Est GFR (CKD-EPI)NonAf 27 (>60 ml/min/1.73 sqM) Glucose 95 (74-99) mg/dL Plasma Lactic Acid Devin (0.7-2.0) mmol/L Calcium 6.9 L (8.4-10.2) mg/dL Total Bilirubin 43.0 H* (0.2-1.3) mg/dL AST 193 H (17-59) U/L ALT 153 H (4-49) U/L Alkaline Phosphatase 885 H (38-126) U/L Ammonia (<30) umol/L Total Protein 5.3 L (6.3-8.2) g/dL Albumin 2.3 L (3.5-5.0) g/dL Amylase <30 L (30-110) U/L Lipase 64 (23-300) U/L 04/26/22 Range/Units 08:59 WBC (3.8-10.6) k/uL RBC (4.30-5.90) m/uL Hgb (13.0-17.5) gm/dL Hct (39.0-53.0) % MCV (80.0-100.0) fL MCH (25.0-35.0) pg MCHC (31.0-37.0) g/dL RDW (11.5-15.5) % Plt Count (150-450) k/uL MPV Neutrophils % % Lymphocytes % % Monocytes % % Eosinophils % % Basophils % % Neutrophils # (1.3-7.7) k/uL Lymphocytes # (1.0-4.8) k/uL Monocytes # (0-1.0) k/uL Eosinophils # (0-0.7) k/uL Basophils # (0-0.2) k/uL Manual Slide Review Toxic Granulation Poikilocytosis Anisocytosis PT (9.0-12.0) sec INR (<1.2) APTT (22.0-30.0) sec Sodium (137-145) mmol/L Potassium (3.5-5.1) mmol/L Chloride (98-107) mmol/L Carbon Dioxide (22-30) mmol/L Anion Gap mmol/L BUN (9-20) mg/dL Creatinine (0.66-1.25) mg/dL Est GFR (CKD-EPI)AfAm (>60 ml/min/1.73 sqM) Est GFR (CKD-EPI)NonAf (>60 ml/min/1.73 sqM) Glucose (74-99) mg/dL Plasma Lactic Acid Devin 2.5 H* (0.7-2.0) mmol/L Calcium (8.4-10.2) mg/dL Total Bilirubin (0.2-1.3) mg/dL AST (17-59) U/L ALT (4-49) U/L Alkaline Phosphatase (38-126) U/L Ammonia 86 H (<30) umol/L Total Protein (6.3-8.2) g/dL Albumin (3.5-5.0) g/dL Amylase (30-110) U/L Lipase (23-300) U/L Disposition Clinical Impression: Hepatitis C, Hyperbilirubinemia, GI bleed, Cirrhosis of liver with ascites, Hepatic failure, Acute renal failure, Anemia, History of liver transplant Disposition: OTHER INSTITUTION NOT DEFINED Condition: Poor - Out of Hospital Transfer - Req. Specs Out of Hospital Transfer - Requested Specifics: Other Non-Acute ([place]) Procedures - [place] Protocol (Time Out) Nurse: Nba Guadalupe
[2022-04-26] MEDS: LACTULOSE 20 GM/30 ML CUP PO SCH ×2 (17:59→20:35)
[2022-04-26 18:19] VITALS: PULSE 62
[2022-04-26] MEDS ORDERED: SIMETHICONE 80 MG CHEWABLE PO PRN (19:40)
[2022-04-26] MEDS ORDERED: DICLOFENAC SODIUM GEL 100 GM TUBE TOPICAL PRN (19:40)
[2022-04-26] MEDS ORDERED: DOCUSATE 100 MG CAP PO PRN (19:40)
[2022-04-26] MEDS ORDERED: ALBUTEROL HFA INHALER INHALATION PRN (19:40)
[2022-04-26] MEDS ORDERED: IBUPROFEN 800 MG TAB PO PRN (19:40)
[2022-04-26] MEDS: PANTOPRAZOLE 40 MG/10 ML VIAL IVP SCH (20:35)
[2022-04-26] MEDS: TACROLIMUS 1 MG CAP PO SCH (20:35)
[2022-04-27] MEDS: HYDROmorphone 0.5 MG/0.5 ML SYRINGE IVP PRN ×2 (00:11→04:27)
--- NOTE | 2022-04-27 00:18 | HP ---
HISTORY AND PHYSICAL CHIEF COMPLAINT: Vomiting of coffee-ground material as well as jaundice. HISTORY OF PRESENT ILLNESS: This 57-year-old gentleman with a past medical history of multiple medical problems including cirrhosis and hepatorenal failure secondary to hepatitis C and possibly alcoholic cirrhosis, was previously seen by [facility]. The patient was discharged few weeks ago after paracentesis according to the patient. The patient was established with [facility] Liver Transplant team. Currently, the patient complains of weakness, increasing jaundice as well as ascites and coffee-ground emesis. The patient came to [facility]. Bilirubin was elevated up to 43 and hemoglobin is 9.4 . Gastroenterology evaluation is in progress. Dr. Merchant has recommended the patient to be transferred to [facility]. There is no history of any fever, rigors, or chills. PAST MEDICAL HISTORY: Reviewed and include hepatic cirrhosis, hepatitis C, alcoholic cirrhosis, ascites, and rest of the complicated medical issues, which is reviewed. HOME MEDICATIONS: Again, reviewed and include Ursodiol, dose and rest of the medication noted. ALLERGIES: None. FAMILY HISTORY: History of myocardial infarction. SOCIAL HISTORY: Smoking, previous history of alcohol. REVIEW OF SYSTEMS: A 14-point review of systems is negative except as mentioned earlier. PHYSICAL EXAMINATION: VITAL SIGNS: Pulse is 80, blood pressure 116/74, respirations 18. HEENT: Conjunctivae icteric. Skin is significantly icteric. Oral mucosa moist. NECK: No JVD. CARDIOVASCULAR: S1, S2 muffled. RESPIRATION: Few scattered rhonchi. ABDOMEN: Diffusely distended. Ascites present. Hepatomegaly present. LEGS: Minimal bilateral leg edema. NERVOUS SYSTEM: Diffusely weak. SKIN: Emaciated skin, jaundiced. JOINTS: No active deforming arthropathy. LYMPHATICS: No lymph node palpable. LABORATORY DATA: Reviewed. Hemoglobin 9.4, sodium 130, potassium n labs are reviewed. ASSESSMENT: 1. Acute hepatic failure. 2. Hepatorenal failure. 3. Severe jaundice secondary to alcoholic cirrhosis and cirrhosis secondary to hepatitis C. 4. Ascites. 5. Hypokalemia. 6. Coffee-ground emesis for evaluation. 7. Elevated LFTs. 8. Multiple medical issues. RECOMMENDATIONS: This 57-year-old gentleman, presented with multiple complex medical issues as mentioned. We will continue the conservative line of management. Otherwise, we will get in touch with the family regarding the further plans of action, and if the family desires so, we will initiate transfer to [facility]. Otherwise, we will follow the patient closely with you. Resume the home medications. Avoid hepatotoxic medications, lactulose. Guarded prognosis. Further recommendations to follow. See orders for further details. Closely follow with Gastroenterology. RONNIE / SCOTTYN: [id number] / CHITO
[2022-04-27 04:50] VITALS: BP 93/53; RESP 16; TEMP 97.3
[2022-04-27] MEDS ORDERED: PANTOPRAZOLE 40 MG TABLET PO SCH (07:30)
[2022-04-27] MEDS: TACROLIMUS 1 MG CAP PO SCH (07:42)
[2022-04-27] MEDS: PANTOPRAZOLE 40 MG/10 ML VIAL IVP SCH (07:42)
[2022-04-27] MEDS: LACTULOSE 20 GM/30 ML CUP PO SCH (07:43)
[2022-04-27] MEDS ORDERED: SPIRONOLACTONE 25 MG TAB PO SCH (09:00)
[2022-04-27] MEDS ORDERED: predniSONE 20 MG TAB PO SCH (09:00)
[2022-04-27] MEDS ORDERED: FUROSEMIDE 20 MG TAB PO SCH (09:00)
--- NOTE | 2022-04-27 09:25 | P.PN ---
Subjective Progress Note Date: 04/27/22 Principal diagnosis: This a pleasant 57-year-old male with a past medical history of hepatitis C, alcohol abuse with liver disease who underwent a liver transplant 5 years ago [facility]. Over the last few months he has been progressively getting more sick, jaundice, abdominal distention. He was seen here in January of this year as well as in February. In January was recommended that he get transferred down to [facility] however patient had refused at that time. In February he was transferred down to [facility] which he states he was told he is rejecting his liver transplant. He is currently on Prograf, CellCept and ursodiol. He presented to the emergency department with complaints of dark red emesis that started 2 days ago. He is also has complaints of abdominal discomfort due to his distention, he has a umbilical hernia. He states he does take Aldactone. He has not had any paracentesis recently. He states he has progressively gotten weaker, he has has not seen anybody at [facility] since approximately 4 weeks ago. 04/27/2022: Patient seen and reevaluated on follow-up for liver failure. Today he states he is no longer having any nausea or vomiting. Complaints of abdominal discomfort and distention. He is alert and oriented to self and place, he did state it was 2022. He states that nobody has had a conversation with him regarding palliative care or hospice care at [facility], he is unsure plan of care with [facility]. He has no family in the area here. Today's labs are currently pending. Patient has been accepted to [facility] in the do have a bed available. Arrangements are being made currently for transfer. Objective - Vital Signs Vital signs: Vital Signs Temp 97.3 F L 04/27/22 04:49 Pulse 62 04/27/22 04:49 Resp 16 04/27/22 04:49 BP 93/53 04/27/22 04:49 Pulse Ox 90 L 04/27/22 04:49 FiO2 Intake & Output 04/26/22 04/27/22 04/27/22 18:59 06:59 18:59 Intake Total 50 1200 Output Total 6 Balance 50 1194 Weight 52.5 kg 52.5 kg Intake: Intake, IV Titration 50 Amount cefTRIAXone 1 gm In 50 Sodium Chloride 0.9% 50 ml @ 100 mls/hr IVPB Q24HR JEFFREY Rx#:[id number] Oral 1200 Output: Stool 6 Other: # Bowel Movements 1 - Exam General appearance: The patient is alert, oriented to self and place, appears in no acute distress. HET: Head is normocephalic and atraumatic. Conjunctiva pink. Sclera deeply icteric. Neck: Supple without lymphadenopathy. Abdomen: Soft, tenderness to palpation, abdominal distention with reducible umbilical hernia. No guarding or rigidity. Extremities: Normal skin color and turgor. No pedal edema Skin: No rashes, jaundice. Neurological: No focal deficits. Alert and oriented x2. - Labs CBC & Chem 7: 04/26/22 08:59 04/26/22 08:59 Labs: Abnormal Lab Results - Last 24 Hours (Table) 04/26/22 04/26/22 04/26/22 Range/Units 08:59 08:59 08:59 WBC 13.2 H (3.8-10.6) k/uL RBC 2.96 L (4.30-5.90) m/uL Hgb 9.4 L D (13.0-17.5) gm/dL Hct 26.6 L (39.0-53.0) % RDW 18.0 H (11.5-15.5) % Plt Count 77 L (150-450) k/uL Neutrophils # 11.7 H (1.3-7.7) k/uL Lymphocytes # 0.5 L (1.0-4.8) k/uL PT 15.7 H (9.0-12.0) sec INR 1.5 H (<1.2) APTT 33.6 H (22.0-30.0) sec Sodium 130 L (137-145) mmol/L Potassium 2.9 L (3.5-5.1) mmol/L Carbon Dioxide 14 L (22-30) mmol/L BUN 75 H (9-20) mg/dL Creatinine 2.54 H (0.66-1.25) mg/dL Plasma Lactic Acid Devin (0.7-2.0) mmol/L Calcium 6.9 L (8.4-10.2) mg/dL Total Bilirubin 43.0 H* (0.2-1.3) mg/dL AST 193 H (17-59) U/L ALT 153 H (4-49) U/L Alkaline Phosphatase 885 H (38-126) U/L Ammonia (<30) umol/L Total Protein 5.3 L (6.3-8.2) g/dL Albumin 2.3 L (3.5-5.0) g/dL Amylase <30 L (30-110) U/L 04/26/22 04/26/22 Range/Units 08:59 12:03 WBC (3.8-10.6) k/uL RBC (4.30-5.90) m/uL Hgb (13.0-17.5) gm/dL Hct (39.0-53.0) % RDW (11.5-15.5) % Plt Count (150-450) k/uL Neutrophils # (1.3-7.7) k/uL Lymphocytes # (1.0-4.8) k/uL PT (9.0-12.0) sec INR (<1.2) APTT (22.0-30.0) sec Sodium (137-145) mmol/L Potassium (3.5-5.1) mmol/L Carbon Dioxide (22-30) mmol/L BUN (9-20) mg/dL Creatinine (0.66-1.25) mg/dL Plasma Lactic Acid Devin 2.5 H* 2.1 H* (0.7-2.0) mmol/L Calcium (8.4-10.2) mg/dL Total Bilirubin (0.2-1.3) mg/dL AST (17-59) U/L ALT (4-49) U/L Alkaline Phosphatase (38-126) U/L Ammonia 86 H (<30) umol/L Total Protein (6.3-8.2) g/dL Albumin (3.5-5.0) g/dL Amylase (30-110) U/L Assessment and Plan (1) Hepatic failure Narrative/Plan: 47-year-old male with a known history of hepatitis C infection and chronic alcohol abuse with liver failure who underwent liver transplant approximately 5 years ago at [facility]. Patient has been progressively getting sick over the last 2 months duration has been to our hospital and January and February. Last transferred to [facility] in February for care. Patient reportedly states that he is rejecting the liver, currently on Prograf CellCept and Ursodiol. Patient states he was last seen at [facility] approximately 4 weeks ago. He states he has had continued abdominal distention however states that he was told he did not have any fluid to be drained. Also noted to be severely jaundiced with a total bilirubin of 43, LFTs are elevated AST 193 ALT 153 alkaline phosphatase 885, cannot rule out possible obstruction. Patient presented with abdominal distention and dark red emesis for the last 2 days duration. Unclear etiology of hematemesis, could be related to severe gastritis, esophagitis, AVM or esophageal varices. Patient unsure of last EGD. At this time recommendation is to transfer to [facility] for patient coordinator/liver transplant team management. Patient has been accepted and bed available now at [facility], currently awaiting transfer. Current Visit: Yes Status: Acute Code(s): K72.90 - HEPATIC FAILURE, UNSPECIFIED WITHOUT COMA SNOMED Code(s): 56450472 (2) Acute kidney injury Current Visit: Yes Status: Acute Code(s): N17.9 - ACUTE KIDNEY FAILURE, UNSPECIFIED SNOMED Code(s): 43038572 (3) GI bleed Narrative/Plan: Patient with coffee-ground/dark red emesis. Hemoglobin stable at this time. Recommending transfer to [facility]. Patient has not had any further nausea and vomiting, no further hematemesis. Current Visit: Yes Status: Acute Code(s): K92.2 - GASTROINTESTINAL HEMORRHAGE, UNSPECIFIED SNOMED Code(s): 03194926 (4) Hyperammonemia Current Visit: Yes Status: Acute Code(s): E72.20 - DISORDER OF UREA CYCLE METABOLISM, UNSPECIFIED SNOMED Code(s): 5852091 (5) Hepatitis C Current Visit: Yes Status: Acute Priority: High Code(s): B19.20 - UNSPECIFIED VIRAL HEPATITIS C WITHOUT HEPATIC COMA SNOMED Code(s): 38507373 (6) Hyperbilirubinemia Current Visit: Yes Status: Acute Code(s): E80.6 - OTHER DISORDERS OF BILIRUBIN METABOLISM SNOMED Code(s): 50728931 (7) Hypokalemia Narrative/Plan: Replace electrolytes Current Visit: Yes Status: Acute Code(s): E87.6 - HYPOKALEMIA SNOMED Code(s): 45091421 Plan: 1. Continue symptomatic and supportive care 2. Recommend transfer to [facility] where patient is established with liver transplant team 3. CBC daily, transfuse for hemoglobin less than 7 4. Lactulose 30 g times one dose then 3 times a day 5. Protonix 40 mg twice a day 6. Daily CBC, INR, CMP 7. Patient has been accepted to [facility] bed is available, patient is awaiting transfer. Thank you for this consultation. Dr. Rufino Merchant I agree with the dictator's note, documented as a scribe by Joanne Trevino.
--- NOTE | 2022-04-27 09:35 | P.DS ---
Providers Date of admission: 04/26/22 10:09 Expected date of discharge: 04/27/22 Attending physician: Ag Marroquin MD Consults: 04/26/22 10:11 Consult Physician Urgent Consulting Provider: Vee Merchant Consult Reason/Comments: liver failure Do you want consulting provider notified?: Yes Primary care physician: [facility] Course: Final diagnosis Acute hepatic failure Hepatorenal failure Severe jaundice secondary to alcoholic cirrhosis and cirrhosis secondary to hepatitis C Ascites hypokalemia coffee-ground emesis Chronic anemia secondary to alcoholism Continued ongoing nicotine dependence Elevated LFTs Discharge disposition Patient is being transferred in a stable condition with guarded prognosis to [facility]. Patient has been accepted by Dr. Matt at [facility] and has just received the bed assignment.. Patient on the GI nephrology consultation. Total time taken is greater than 35 minutes. Hospital course This is 57year -old male who was recently admitted with weakness and increasing jaundice along with abdominal distention and some coffee-ground emesis. Patient was recently just hospitalized and discharged for hepatitis C alcoholic cirrhosis [facility]. Patient had received paracentesis at that time. Patient's bilirubin is extremely elevated at 43. GI is following the patient recommending tertiary transfer treatment center and a [facility] has accepted the patient. Currently no reports of chest pain, shortness of breath, or palpitations. Patient is afebrile. No reports of nausea or vomiting and patient is tolerating diet. patient will need paracentesis as this was ordered and pending. Patient will be transferred to [facility]. prognosis is extremely poor and guarded. Physical exam: Gen: This [id number] male awake, alert and oriented 2, thin built, extremely jaundiced an ill-appearing ENT: Head is atraumatic, normocephalic. Pupils equal, round. Sclerae is anicteric. NECK: Supple. No JVD. No lymphadenopathy. No thyromegaly. LUNGS:Diminished breath sounds bilaterally with some scattered rhonchi noted. intercostal retractions. HEART: S1, S2 are muffled ABDOMEN: taut. distended. Tympanic. Bowel sounds are present. No masses. No tenderness. EXTREMITIES: No pedal edema. No calf tenderness. NEUROLOGICAL: Patient is awake, alert and oriented x3. Cranial nerves 2 through 12 are grossly intact. Please refer to medication reconciliation sheet for a list of medications. The impression and plan of care has been dictated by Ina Duran, Nurse Practitioner as directed. Dr. Ronan MD I have performed a history and examination and MDM of this patient, discussed the same with the dictator, and agree with the dictator's assessment and plan as written ,documented as a scribe. Based on total visit time, I have performed more than 50% of the visit. Patient Condition at Discharge: Poor Plan - Discharge Summary New Discharge Prescriptions: No Action Tacrolimus [Prograf] 2 mg PO BID Albuterol Inhaler [Ventolin Hfa Inhaler] 1 - 2 puff INHALATION RT-Q4H PRN PRN Reason: Shortness Of Breath Docusate Sodium [Dok] 100 mg PO BID PRN PRN Reason: Constipation mycophenolate mofetiL [Cellcept] 1,000 mg PO BID ursodioL [Ursodiol] 600 mg PO TID Sildenafil Citrate [Viagra] 100 mg PO DAILY PRN PRN Reason: E.D. oxyCODONE HCL [OxyIR] 5 mg PO BID predniSONE [Deltasone] 40 mg PO DAILY Spironolactone [Aldactone] 50 mg PO DAILY Loratadine 10 mg PO DAILY PRN PRN Reason: Allergy Symptoms Ibuprofen [Motrin] 800 mg PO BID PRN PRN Reason: Pain HYDROcodone/APAP 10-325MG [[place] 10-325] 1 tab PO Q8H PRN PRN Reason: Pain Diclofenac Sodium Gel [Voltaren Gel] 2 gm TOPICAL QID PRN PRN Reason: Pain Butalb/APAP/Caff 50-325-40Mg [Fioricet 50-325-40] 1 - 2 tab PO DAILY PRN PRN Reason: Migraine Headache Fluticasone Propion/Salmeterol [Advair 250-50 Diskus] 1 puff INHALATION RT- BID Furosemide [Lasix] 20 mg PO DAILY Naloxone HCl 4 mg NS DAILY PRN PRN Reason: Overdose Pantoprazole [Protonix] 40 mg PO DAILY Simethicone Chew [Mylicon Chew] 80 mg PO QID PRN PRN Reason: Indigestion Sulfamethox-Tmp 800-160Mg [Bactrim DS 800-160 mg] 1 tab PO MOWEFR Discharge Medication List Tacrolimus [Prograf] 2 mg PO BID 08/30/16 [History] Albuterol Inhaler [Ventolin Hfa Inhaler] 1 - 2 puff INHALATION RT-Q4H PRN 08/11/19 [History] Docusate Sodium [Dok] 100 mg PO BID PRN 08/11/19 [History] mycophenolate mofetiL [Cellcept] 1,000 mg PO BID 08/11/19 [History] Butalb/APAP/Caff 50-325-40Mg [Fioricet 50-325-40] 1 - 2 tab PO DAILY PRN 02/23/22 [History] Diclofenac Sodium Gel [Voltaren Gel] 2 gm TOPICAL QID PRN 02/23/22 [History] Fluticasone Propion/Salmeterol [Advair 250-50 Diskus] 1 puff INHALATION RT-BID 02/23/22 [History] HYDROcodone/APAP 10-325MG [L[place] 10-325] 1 tab PO Q8H PRN 02/23/22 [History] Ibuprofen [Motrin] 800 mg PO BID PRN 02/23/22 [History] Loratadine 10 mg PO DAILY PRN 02/23/22 [History] Sildenafil Citrate [Viagra] 100 mg PO DAILY PRN 02/23/22 [History] ursodioL [Ursodiol] 600 mg PO TID 02/23/22 [History] Furosemide [Lasix] 20 mg PO DAILY 04/26/22 [History] Naloxone HCl 4 mg NS DAILY PRN 04/26/22 [History] Pantoprazole [Protonix] 40 mg PO DAILY 04/26/22 [History] Simethicone Chew [Mylicon Chew] 80 mg PO QID PRN 04/26/22 [History] Spironolactone [Aldactone] 50 mg PO DAILY 04/26/22 [History] Sulfamethox-Tmp 800-160Mg [Bactrim DS 800-160 mg] 1 tab PO MOWEFR 04/26/22 [History] oxyCODONE HCL [OxyIR] 5 mg PO BID 04/26/22 [History] predniSONE [Deltasone] 40 mg PO DAILY 04/26/22 [History] Follow up Appointment(s)/Referral(s): Davi Matute DO [Primary Care Provider] - 1-2 days Discharge/Stand Alone Forms: [facility]
[2022-04-27 09:38] LABS: INR 1.6 (<1.2); Prothrombin Time 16.8 sec (9.0-12.0)
[2022-04-27 10:25] LABS: African American GFR (CKD) 26.2 (60.0-200.0); Albumin 2.3 g/dL (3.8-4.9); Albumin/Globulin Ratio 1.64 (1.60-3.17); Anion Gap 19.8 mmol/L (10.00-18.00); BUN/Creat Ratio 29.9 Ratio (12.00-20.00); Blood Urea Nitrogen 86.7 mg/dL (9.0-27.0); Calcium 7.2 mg/dL (8.7-10.3); Carbon Dioxide 10.2 mmol/L (20.0-27.5); Globulin 1.4 g/dL (1.6-3.3); Non-African American GFR(CKD) 22.6 (60.0-200.0); Total Bilirubin 38.2 mg/dL (0.30-1.20); Total Protein 3.7 g/dL (6.2-8.2)
[2022-04-27 11:51] LABS: Basophils # (A) 0.02 X 10*3/uL (0.00-0.10); Basophils % (A) 0.2 %; Crenated RBC 2+; Eosinophils # (A) 0.05 X 10*3/uL (0.04-0.35); Eosinophils % (A) 0.4 %; HCT 23.6 % (39.6-50.0); HGB 8.1 g/dL (13.0-17.0); Immature Grans, Automated 1.7 %; Immature Platelet Fraction 4.8 % (1.1-6.1); Lymphocytes # (A) 0.81 X 10*3/uL (0.90-5.00); Lymphocytes % (A) 7.2 %; MCH 30.9 pg (27.0-32.0); MCHC 34.3 g/dL (32.0-37.0); MCV 90.1 fL (80.0-97.0); Monocytes # (A) 0.59 X 10*3/uL (0.20-1.00); Monocytes % (A) 5.2 %; NRBC Per 100 WBC 0 /100 WBCS (0.0-0.0); Neutrophils # (A) 9.58 X 10*3/uL (1.80-7.70); Neutrophils % (A) 85.3 %; Platelet Count 57 X 10*3/uL (140-440); RBC 2.62 X 10*6/uL (4.40-5.60); RDW 17.8 % (11.5-14.5); WBC 11.24 X 10*3/uL (4.50-10.00)
== END 2022-04-27 12:00 | disposition short-term general hospital (02) ==
LOC: EC 08:24 → INTOOBSV 10:09 → 5NMEDONC 10:09 → UNDODISIN 04-27 12:00
PROVIDERS: ADMIT Internal Medicine; ATTEND Internal Medicine
DX: K72.90 Hepatic failure, unspecified without coma (principal); N17.9 Acute kidney failure, unspecified; K92.2 Gastrointestinal hemorrhage, unspecified; E72.20 Disorder of urea cycle metabolism, unspecified; E80.6 Other disorders of bilirubin metabolism; E87.6 Hypokalemia; B19.20 Unspecified viral hepatitis C without hepatic coma; K70.31 Alcoholic cirrhosis of liver with ascites; F10.20 Alcohol dependence, uncomplicated; D64.9 Anemia, unspecified; I73.9 Peripheral vascular disease, unspecified; K42.9 Umbilical hernia without obstruction or gangrene; F17.200 Nicotine dependence, unspecified, uncomplicated; J98.11 Atelectasis; Z79.899 Other long term (current) drug therapy; Z94.4 Liver transplant status; Z82.3 Family history of stroke; Z82.49 Family history of ischemic heart disease and other diseases of the circulatory system; Z20.822 Contact with and (suspected) exposure to COVID-19
CPT/HCPCS: 96376 ×3; 96366 ×3; 96367; 96375 ×2; 96365 ×2; 99285; 36415; 80053 ×2; 82140 ×2; 82150; 83605; 83690; 85025 ×2; 85610 ×2; 85730; 87040; 87635; 71046; G0378 ×2; J2765; J3480; J2405; J7507 ×2; J0696 ×2; J7517 ×2; J7512; C9113 ×2; J1170 ×2; 96361; 96374